=== PATIENT | male | born 1965 | race Caucasian/White ===

== ENCOUNTER 2019-04-10 09:49 | Observation (INO) | payer BC, SELFPAY ==
[2019-04-10] VITALS (15 sets, daily range): BP systolic 139–180; BP diastolic 92–127; PULSE 69–105; RESP 16–19; TEMP 36.3–37.1; O2SAT 92–98; BMI 25.0
--- NOTE | 2019-04-10 10:15 | EKG12_ITS ---
Test Reason : CP Blood Pressure : / mmHG Vent. Rate : 089 BPM Atrial Rate : 089 BPM P-R Int : 206 ms QRS Dur : 110 ms QT Int : 380 ms P-R-T Axes : 039 013 024 degrees QTc Int : 462 ms Normal sinus rhythm Incomplete left bundle branch block Borderline ECG Confirmed by LATRICIA DALY, MARCY ([id number]), film editor supervisor ART OBRIEN ([id number]) on 04/11/2019 8:13:58 AM Referred By: ASHLEY Confirmed By:MARCY ROME MD
--- NOTE | 2019-04-10 10:15 | RAD_ITS ---
STUDY: X-RAY CHEST REASON FOR EXAM: Male, 54 years old. Left-sided chest pain. TECHNIQUE: PA and lateral views of the chest. COMPARISON: Comparison is made with prior examination dated April 07, 2019. FINDINGS: EKG electrodes are seen. The lungs are clear and expanded. There is no demonstrated pleural abnormality. Normal size heart. Calcification of the left hilar lymph nodes. Normal visualized pulmonary arteries. There is atherosclerotic tortuosity of the aortic arch and descending thoracic aorta. Normal visualized thoracic spine. Normal visualized ribs, clavicles, and shoulders. There is no demonstrated abnormality of the visualized soft tissue structures of the upper abdomen. RAD/Chest PA and Lateral IMPRESSION: Normal x-ray examination of the chest. Electronically Signed: Jonathan Huertas, at 10:51 EDT , Service support ,
--- NOTE | 2019-04-10 10:16 | ED.VIS.GEN ---
History of Present Illness Chief Complaint: Chest Pain Informant: Patient Onset: Weeks Timing: Intermittent - Initially seconds today 10 to 15 minutes Quality: Pain Location: Left anterior chest Current Severity: - - Minimal Maximum Severity: Moderate Worsened by: Work Relieved by: Nothing Associated Symptoms: Mild shortness of breath Narrative: Patient is a 54-year-old male who reports he has no sniffing past medical history. He presents because of anterior left chest pain that is been intermittent for the past week. Today he had an episode last 10 to 15 minutes at work. He admits to drinking 6-8 beers daily. He denies history of pancreatitis. He denies black or maroon stool. He denies bruising easily even though he has numerous bruises. He denies history of PE or DVT. He denies leg pain, swelling discoloration. He does complain of vague myalgia upper and lower extremity. Prior similar symptoms: No Recent Illness/Hospitalization: No - Past Medical History (1) Alcoholic hepatitis Status: Acute Past Medical History - Allergies and Home Meds Allergies/Adverse Reactions: Allergies No Known Allergies Allergy (Unverified 04/10/19 09:49) Primary Care Physician: Dwaine Hendrix MD [Primary Care Provider] - Prior records reviewed: Yes Lives: Alone Smoking Status: Never smoker Alcohol: Heavy Drugs: None Review of Systems General: Denies: Chills, Fever, Sweats Eyes: Denies: Visual changes - bilaterally, Blurred Vision - bilaterally, Diplopia ENT: Denies: Rhinorrhea, Sore throat Cardiovascular: Reports: Chest pain Respiratory: Reports: Dyspnea. Denies: Cough, Sputum, Dyspnea on exertion, Orthopnea, Paroxysmal nocturnal dyspnea Gastrointestinal: Denies: Abdominal pain, Nausea, Vomiting, Diarrhea, Melena, Hematochezia Genitourinary: Denies: Dysuria, Hematuria, Frequency Musculoskeletal: Reports: Myalgias. Denies: Arthralgias, Neck pain, Back pain, Extremity Pain Skin: Denies: Rash, Wounds Neurological: Denies: Headache, Weakness, Numbness Hematologic: Denies: Easy bruising, Easy bleeding Allergy: Denies: Uticaria, Swelling of the mouth Physical Exam Vital Signs/Narrative: Vital Signs Temp Pulse Resp BP Pulse Ox 04/10/19 09:50 97.4 F L 105 H 17 164/115 H 96 Inital Vital Signs reviewed: Yes General: Well nourished, Well developed, No Acute Distress Head: Normocephalic, Atraumatic Eyes: Perrl, EOMI ENT: Moist mucous membranes, No rhinorrhea Neck: Supple, Nontender Cardiovascular: Regular rhythm, No murmurs, Normal S1, Normal S2, Tachycardia Respiratory: No distress, CTA bilaterally, Chest nontender Abdomen: Soft, Nontender, Nondistended, Normal bowel sounds, No masses Back: Nontender, Normal Inspection Extremities: Nontender, No edema Skin: Normal color, No rash, Trauma - Couple bruises upper extremity and chest. Negative for: Cyanosis, Diaphoresis, Jaundice Neurological: Alert, Oriented x3, Cranial nerves II-XII grossly intact, Normal Strength, Normal Sensation, Normal Gait Psychological: Normal affect, Normal Mood Diagnostic/Tx/Re-eval Chest X-Ray - ED: 2 View, Read by ED Physician, Normal, Heart, Lungs, Bony Structures, No Acute Disease, - - Illness disease noted left hilum which was not as obvious 3 days ago. Impressions Chest X-Ray 04/10/19 10:15 IMPRESSION: Normal x-ray examination of the chest. Electronically Signed: Jonathan Huertas, at 10:51 EDT , Service support , 04/10/19 10:15 Chest PA and Lateral [RAD] Stat Laboratory Results 04/10/19 04/10/19 10:15 10:15 WBC 2.7 L RBC 3.78 L Hgb 12.9 L Hct 37.8 L MCV 100.0 H MCH 34.1 H MCHC 34.1 RDW 13.7 RDW Differential 49.1 H Plt Count 35 L* MPV 10.5 Immature Gran % (Auto) 0.000 Neut % (Auto) 34.6 L Lymph % (Auto) 53.4 H [place] % (Auto) 7.1 Eos % (Auto) 4.5 Baso % (Auto) 0.4 Absolute Neuts (auto) 0.9 L Absolute Lymphs (auto) 1.43 Total Counted Not Reportable Differential Comment COMMENT Diff Path Review May foll Sodium 142 Potassium 3.4 L Chloride 106 Carbon Dioxide 26.0 Anion Gap 10 BUN 8 Creatinine 0.82 Estim Creat Clear Calc 108.81 Est GFR (MDRD) Af Amer 128 Est GFR (MDRD) Non-Af 105 BUN/Creatinine Ratio 9.8 L Glucose 122 H Calcium 8.6 Total Bilirubin 0.40 AST 207 H ALT 169 H Alkaline Phosphatase 53 Troponin I 0.105 H Total Protein 7.4 Albumin 3.8 Globulin 3.6 Albumin/Globulin Ratio 1.1 Lipase 235 - Rhythm Strip Rhythm Strip: Sinus Rhythm Rate: 103 - EKG Initial EKG Interpretation: Sinus Rhythm - Ventricular rate is 89. [place] interval is prolonged at 206 ms, first-degree AV block, QS duration is prolonged at 110 ms. QT interval is normal. No acute ischemic changes noted. - Medical Decision Making Patient presents with intermittent chest pain. This may represent pancreatitis, cardiac ischemia, noncardiac etiology and specifically GERD, esophagitis/gastritis secondary to drinking. Pulmonary etiologies need to be considered. Since patient is tachycardic we will obtain a d-dimer. Patient has pancytopenia most likely secondary to bone marrow suppression from chronic alcohol use. Patient does have an elevated troponin. In light of this hospitalist was paged for 20 observation to evaluate for cardiac etiology versus other causes. ED Disposition - Plan for ED Patient: Disposition: Acute Care Hospital [facility] Diagnosis: Left-sided chest pain, Pancytopenia, Alcoholism /alcohol abuse Referrals: Dwaine Hendrix MD [Primary Care Provider] -
--- NOTE | 2019-04-10 10:20 | ED.DCSUM_ITS ---
History of Present Illness Chief Complaint: Chest Pain Informant: Patient Onset: Weeks Timing: Intermittent - Initially seconds today 10 to 15 minutes Quality: Pain Location: Left anterior chest Current Severity: - - Minimal Maximum Severity: Moderate Worsened by: Work Relieved by: Nothing Associated Symptoms: Mild shortness of breath Narrative: Patient is a 54-year-old male who reports he has no sniffing past medical history. He presents because of anterior left chest pain that is been intermittent for the past week. Today he had an episode last 10 to 15 minutes at work. He admits to drinking 6-8 beers daily. He denies history of pancreatitis. He denies black or maroon stool. He denies bruising easily even though he has numerous bruises. He denies history of PE or DVT. He denies leg pain, swelling discoloration. He does complain of vague myalgia upper and lower extremity. Prior similar symptoms: No Recent Illness/Hospitalization: No - Past Medical History (1) Alcoholic hepatitis Status: Acute Past Medical History - Allergies and Home Meds Allergies/Adverse Reactions: Allergies No Known Allergies Allergy (Unverified 04/10/19 09:49) Primary Care Physician: Dwaine Hendrix MD [Primary Care Provider] - Prior records reviewed: Yes Lives: Alone Smoking Status: Never smoker Alcohol: Heavy Drugs: None Review of Systems General: Denies: Chills, Fever, Sweats Eyes: Denies: Visual changes - bilaterally, Blurred Vision - bilaterally, Di plopia ENT: Denies: Rhinorrhea, Sore throat Cardiovascular: Reports: Chest pain Respiratory: Reports: Dyspnea. Denies: Cough, Sputum, Dyspnea on exertion, Orthopnea, Paroxysmal nocturnal dyspnea Gastrointestinal: Denies: Abdominal pain, Nausea, Vomiting, Diarrhea, Melena, Hematochezia Genitourinary: Denies: Dysuria, Hematuria, Frequency Musculoskeletal: Reports: Myalgias. Denies: Arthralgias, Neck pain, Back pain, Extremity Pain Skin: Denies: Rash, Wounds Neurological: Denies: Headache, Weakness, Numbness Hematologic: Denies: Easy bruising, Easy bleeding Allergy: Denies: Uticaria, Swelling of the mouth Physical Exam Vital Signs/Narrative: Vital Signs Temp Pulse Resp BP Pulse Ox 04/10/19 09:50 97.4 F L 105 H 17 164/115 H 96 Inital Vital Signs reviewed: Yes General: Well nourished, Well developed, No Acute Distress Head: Normocephalic, Atraumatic Eyes: Perrl, EOMI ENT: Moist mucous membranes, No rhinorrhea Neck: Supple, Nontender Cardiovascular: Regular rhythm, No murmurs, Normal S1, Normal S2, Tachycardia Respiratory: No distress, CTA bilaterally, Chest nontender Abdomen: Soft, Nontender, Nondistended, Normal bowel sounds, No masses Back: Nontender, Normal Inspection Extremities: Nontender, No edema Skin: Normal color, No rash, Trauma - Couple bruises upper extremity and chest. Negative for: Cyanosis, Diaphoresis, Jaundice Neurological: Alert, Oriented x3, Cranial nerves II-XII grossly intact, Normal Strength, Normal Sensation, Normal Gait Psychological: Normal affect, Normal Mood Diagnostic/Tx/Re-eval Chest X-Ray - ED: 2 View, Read by ED Physician, Normal, Heart, Lungs, Bony Structures, No Acute Disease, - - Illness disease noted left hilum which was not as obvious 3 days ago. Impressions Chest X-Ray 04/10/19 10:15 IMPRESSION: Normal x-ray examination of the chest. Electronically Signed: Jonathan Huertas, at 10:51 EDT , Service support , 04/10/19 10:15 Chest PA and Lateral [RAD] Stat Laboratory Results 04/10/19 04/10/19 10:15 10:15 WBC 2.7 L RBC 3.78 L Hgb 12.9 L Hct 37.8 L MCV 100.0 H MCH 34.1 H MCHC 34.1 RDW 13.7 RDW Differential 49.1 H Plt Count 35 L* MPV 10.5 Immature Gran % (Auto) 0.000 Neut % (Auto) 34.6 L Lymph % (Auto) 53.4 H [place] % (Auto) 7.1 Eos % (Auto) 4.5 Baso % (Auto) 0.4 Absolute Neuts (auto) 0.9 L Absolute Lymphs (auto) 1.43 Total Counted Not Reportable Differential Comment COMMENT Diff Path Review May foll Sodium 142 Potassium 3.4 L Chloride 106 Carbon Dioxide 26.0 Anion Gap 10 BUN 8 Creatinine 0.82 Estim Creat Clear Calc 108.81 Est GFR (MDRD) Af Amer 128 Est GFR (MDRD) Non-Af 105 BUN/Creatinine Ratio 9.8 L Glucose 122 H Calcium 8.6 Total Bilirubin 0.40 AST 207 H ALT 169 H Alkaline Phosphatase 53 Troponin I 0.105 H Total Protein 7.4 Albumin 3.8 Globulin 3.6 Albumin/Globulin Ratio 1.1 Lipase 235 - Rhythm Strip Rhythm Strip: Sinus Rhythm Rate: 103 - EKG Initial EKG Interpretation: Sinus Rhythm - Ventricular rate is 89. [place] interval is prolonged at 206 ms, first-degree AV block, QS duration is prolonged at 110 ms. QT interval is normal. No acute ischemic changes noted. - Medical Decision Making Patient presents with intermittent chest pain. This may represent pancreatitis, cardiac ischemia, noncardiac etiology and specifically GERD, esophagitis/gastritis secondary to drinking. Pulmonary etiologies need to be considered. Since patient is tachycardic we will obtain a d-dimer. Patient has pancytopenia most likely secondary to bone marrow suppression from chronic alcohol use. Patient does have an elevated troponin. In light of this hospitalist was paged for 20 observation to evaluate for cardiac etiology versus other causes. ED Disposition - Plan for ED Patient: Disposition: Acute Care Hospital [facility] Diagnosis: Left-sided chest pain, Pancytopenia, Alcoholism /alcohol abuse Referrals: Dwaine Hendrix MD [Primary Care Provider] -
[2019-04-10 10:29] LABS: Absolute Lymphocyte Count 1.43 X10^3/ul (0.83-4.51); Absolute Neutrophil Count 0.9 X10^3/uL (2.0-7.7); Basophil# 0.01 X10^3/uL; Basophil% 0.4 % (0-1); Eosinophil# 0.12 X10^3/uL; Eosinophils% 4.5 % (0-5); Hematocrit 37.8 % (40-54); Hemoglobin 12.9 g/dl (13.0-16.5); Lymphocyte # 1.43 X10^3/ul (4.0); Lymphocyte % 53.4 % (19-41); Mean Corp Hgb Conc 34.1 g/gl (32-36); Mean Corpuscular Hgb 34.1 pg (27.0-32.0); Mean Platelet Vol. 10.5 fl (6.2-12.0); Monocyte# 0.19 X10^3/uL; Monocyte% 7.1 % (0-10); Neutrophil # 0.93 X10^3/uL (2.7-7.7); Neutrophil % 34.6 % (47-70); RBC Distribution Width CV 13.7 % (11.6-14.6); RBC Distribution Width SD 49.1 fl (35.1-43.9); Red Blood Count 3.78 M/mm3 (4.6-6.2); White Blood Count 2.7 K/mm3 (4.4-11.0)
[2019-04-10 10:35] LABS: Differential Indicated SCAN CRITERIA MET; POSITIVE COUNT YES; POSITIVE DIFFERENTIAL YES; POSITIVE MORPHOLOGY NO; Platelet Count 35 K/mm3 (150-450)
[2019-04-10 10:45] LABS: ALB/GLOB Ratio 1.1 RATIO (0.9-2.4); AST(SGOT) 207 U/L (15-37); Alanine Aminotransfer ALT/SGPT 169 U/L (16-61); Albumin, Serum 3.8 g/dL (3.2-5.0); Alkaline Phosphatase 53 U/L (45-117); Anion Gap 10 (5-15); BUN 8 mg/dL (7-18); BUN/Creat Ratio 9.8 RATIO (10-20); Calcium,Total 8.6 mg/dL (8.5-10.1); Chloride 106 mmol/L (98-107); Creatinine, Serum 0.82 mg/dL (0.70-1.30); EST Glomerular Filtration Rate 105 mL/min (>60); Est Glom Filt Rate - Afr Amer 128 mL/min (>60); Estimated Creatinine Clearance 108.81 ml/min; Globulin 3.6 g/dL (2.2-4.2); Glucose 122 mg/dL (74-106); Lipase 235 U/L (73-393); Potassium 3.4 mmol/L (3.5-5.1); Protein, Total 7.4 g/dL (6.4-8.2); Sodium Level 142 mmol/L (136-145)
--- NOTE | 2019-04-10 11:45 | NURSING ---
PCU OBS CP, ELEVATED TROP, PANCYTOPENIA KORAM
--- NOTE | 2019-04-10 11:56 | PCM.HP.STD ---
History of Present Illness Date of Admission: 04/10/19 Chief Complaint: chest pain The patient is a 54 year old M past medical history significant for alcohol abuse. He was admitted through the ED on 04/10/2019 with a complaint of chest pain which have been going on for about a week. Chest pain is worsened by exertion and relieved by rest. It is mainly left-sided and does not radiate. He denied any assisted lightheadedness or dizziness, palpitations, fever chills, diarrhea vomiting. He is never had any heart problems before. He does have a strong family history of heart disease with his grandfather and uncle both of heart attacks at a young age. In the ED, vitals were significant for elevated blood pressure of 180/127, labs were significant for potassium of 3.4 and troponin was 0.105. CBC showed pancytopenia with WBC of 2.7 and platelets of 35 as well as hemoglobin of 12.9. Chest x-ray showed no acute cardiopulmonary process and EKG showed no acute ST changes and showed sinus rhythm. He has been admitted to manage for chest pain to rule out ACS. [] Past Medical History Past Medical History (Chronic Problems): Chronic Problems Chewing tobacco use (Chronic) Allergies No Known Allergies Allergy (Unverified 04/10/19 09:49) Home Medications: Ambulatory Orders Medication Instructions Recorded NK 04/10/19 Surgical History: no surgical history Psychiatric History: No pertinent psych hx Lives: Alone Smoking Status: Light Smoker (<10/day) Tobacco Use: Cigarettes Alcohol: Heavy - ~ 12 pack of beer a day on most days Drugs: None - *Family History Paternal History Items: Heart Disease - grandfather and uncle of heart attacks at a young age. Maternal History Items: Cancer - mother had bladder cancer Review of Systems Constitutional: Denies: Chills, Fever, Malaise, Weakness, Weight Change Eyes: Denies: Blurred vision HEENT: Denies: Head Aches, Sinus Congestion, Sinus Drainage Cardiovascular: Reports: Chest Pain, Chest Pressure. Denies: Chest Tightness, Edema, Orthopnea, Palpitations, Paroxysmal Noc. Dyspnea, Syncope Respiratory: Denies: Cough, Shortness of breath at rest, Sputum production Gastrointestinal: Denies: Abdominal Pain, Nausea, Vomiting Genitourinary: Denies: Dysuria Musculoskeletal: Denies: Joint Pain, Joint Tenderness Skin: Denies: Rash, Wounds Neurological: Denies: Numbness, Tingling, Focal weakness Psychiatric: Denies: Anxiety, Depression, Homicidal Ideations, Suicidal Ideations Hematologic/ Lymphatic: Denies: Easy Bruising, Easy Bleeding VTE Information - Inpt Only VTE Present on Admission: No VTE Pharm Prophylaxis ordered?: Yes Patient Problems: Active and Suspected Problems Left-sided chest pain (Acute) Pancytopenia (Acute) Alcoholism /alcohol abuse (Acute) - Physical Exam General: Alert, Oriented x3, Cooperative, No apparent distress HEENT: Atraumatic, PERRLA, EOMI, Normocephalic Oral: Moist Mucosa Neck: Supple, No JVD, Negative Carotid Bruits Lungs: Clear to auscultation, Normal air movement, No rhonchi, No wheeze, No rales Cardiovascular: Regular rate, Regular Rhythm, Normal S1, Normal S2, No murmurs Abdomen: Bowel Sounds Present, Soft, Non Tender, Non-Distended, No Hepato-splenomegaly Extremities: No clubbing, No cyanosis, No edema, Capillary Refill Less than 3 Seconds Skin: - - ecchymotic patches over torso and upper arms (started ~ 1 week ago) Musculoskeletal: No Tenderness to Palpation of Joints or Extremities Lymphatic: No Cervical, Supraclavicular, or Inguinal Adenopathy Neurological: Cranial nerves II-XII grossly intact, Neuro grossly intact, Motor Exam 5/5 strength throughout Psych/Mental Status: Normal Affect, Appropriate, Alert and oriented to time, place, person, mood and affect Vital Signs Temp Pulse Resp BP Pulse Ox 97.4 F L 69 19 H 145/121 H 93 04/10/19 09:50 04/10/19 11:20 04/10/19 11:20 04/10/19 11:20 04/10/19 11:20 Oxygen Delivery Method Room Air Weight: 174 lb 6.17 oz Body Mass Index (BMI) 25.0 Laboratory Tests Past 24 Hrs 04/10/19 04/10/19 10:15 10:15 WBC 2.7 L RBC 3.78 L Hgb 12.9 L Hct 37.8 L MCV 100.0 H MCH 34.1 H MCHC 34.1 RDW 13.7 RDW Differential 49.1 H Plt Count 35 L* MPV 10.5 Immature Gran % (Auto) 0.000 Neut % (Auto) 34.6 L Lymph % (Auto) 53.4 H [place] % (Auto) 7.1 Eos % (Auto) 4.5 Baso % (Auto) 0.4 Absolute Neuts (auto) 0.9 L Absolute Lymphs (auto) 1.43 Total Counted Not Reportable Differential Comment COMMENT Diff Path Review May foll Sodium 142 Potassium 3.4 L Chloride 106 Carbon Dioxide 26.0 Anion Gap 10 BUN 8 Creatinine 0.82 Estim Creat Clear Calc 108.81 Est GFR (MDRD) Af Amer 128 Est GFR (MDRD) Non-Af 105 BUN/Creatinine Ratio 9.8 L Glucose 122 H Calcium 8.6 Total Bilirubin 0.40 AST 207 H ALT 169 H Alkaline Phosphatase 53 Troponin I 0.105 H Total Protein 7.4 Albumin 3.8 Globulin 3.6 Albumin/Globulin Ratio 1.1 Lipase 235 Diagnostic Data Chest X-Ray 04/10/19 10:15 IMPRESSION: Normal x-ray examination of the chest. Electronically Signed: Jonathan Kiya, at 10:51 EDT , Service support , Assessment/Plan All Active Problems Alcohol intoxication (Acute) Alcoholic hepatitis (Acute) Left-sided chest pain (Acute) Pancytopenia (Acute) Alcoholism /alcohol abuse (Acute) 54-year-old male admitted with a complaint of chest pain. 1. Chest pain to rule out ACS chest pain is very typical; left sided, pressure like, worsened by exertion, relieved by rest. initial troponin is 0.105; EKG showed no acute ST changes admit to PCU with telemetry cycle troponins; consult cardiology in light of patient's history of smoking, family history of heart disease and typical nature of chest pain, this was patient's in high probability for CAD will check lipid panel and A1C 2. Elevated BP, with no history of hypertension Patient has BP in the ED was initially 164/115 and went up to 1 8127. Has no known history of hypertension. Elevated blood pressure could also be due to withdrawal from alcohol. Will put on IV hydralazine PRN for now and trend blood pressure. If it remains elevated, will consider starting p.o. blood pressure meds. 3. Pancytopenia 35 with WBC of 2.7 and hemoglobin of 12.9. Is a macrocytic anemia and this is likely due to alcohol abuse. Has an ecchymotic rash over his torso and upper extremities which is likely due to thrombocytopenia. will monitor counseled to stop drinking 4. History of alcohol abuse: drinks ~ 12 pack of beer on most days. Says he has never gone into withdrawal from alcohol. will check alcohol level give thiamine and folic acid as well as multivitamin. put on alcohol withdrawal protocol DVT prophylaxis: SCDs. No anticoagulation o/a of thrombocytopenia Code Visit Inpatient E&M: 83341 Init Hosp L3
--- NOTE | 2019-04-10 12:00 | HP.PCM_ITS ---
History of Present Illness Date of Admission: 04/10/19 Chief Complaint: chest pain The patient is a 54 year old M past medical history significant for alcohol abuse. He was admitted through the ED on 04/10/2019 with a complaint of chest pain which have been going on for about a week. Chest pain is worsened by exertion and relieved by rest. It is mainly left-sided and does not radiate. He denied any assisted lightheadedness or dizziness, palpitations, fever chills, diarrhea vomiting. He is never had any heart problems before. He does have a strong family history of heart disease with his grandfather and uncle both of heart attacks at a young age. In the ED, vitals were significant for elevate d blood pressure of 180/127, labs were significant for potassium of 3.4 and troponin was 0.105. CBC showed pancytopenia with WBC of 2.7 and platelets of 35 as well as hemoglobin of 12.9. Chest x-ray showed no acute cardiopulmonary process and EKG showed no acute ST changes and showed sinus rhythm. He has been admitted to manage for chest pain to rule out ACS. [] Past Medical History Past Medical History (Chronic Problems): Chronic Problems Chewing tobacco use (Chronic) Allergies No Known Allergies Allergy (Unverified 04/10/19 09:49) Home Medications: Ambulatory Orders Medication Instructions Recorded NK 04/10/19 Surgical History: no surgical history Psychiatric History: No pertinent psych hx Lives: Alone Smoking Status: Light Smoker (<10/day) Tobacco Use: Cigarettes Alcohol: Heavy - ~ 12 pack of beer a day on most days Drugs: None - *Family History Paternal History Items: Heart Disease - grandfather and uncle of heart attacks at a young age. Maternal History Items: Cancer - mother had bladder cancer Review of Systems Constitutional: Denies: Chills, Fever, Malaise, Weakness, Weight Change Eyes: Denies: Blurred vision HEENT: Denies: Head Aches, Sinus Congestion, Sinus Drainage Cardiovascular: Reports: Chest Pain, Chest Pressure. Denies: Chest Tightness, Edema, Orthopnea, Palpitations, Paroxysmal Noc. Dyspnea, Syncope Respiratory: Denies: Cough, Shortness of breath at rest, Sputum production Gastrointestinal: Denies: Abdominal Pain, Nausea, Vomiting Genitourinary: Denies: Dysuria Musculoskeletal: Denies: Joint Pain, Joint Tenderness Skin: Denies: Rash, Wounds Neurological: Denies: Numbness, Tingling, Focal weakness Psychiatric: Denies: Anxiety, Depression, Homicidal Ideations, Suicidal Ideations Hematologic/ Lymphatic: Denies: Easy Bruising, Easy Bleeding VTE Information - Inpt Only VTE Present on Admission: No VTE Pharm Prophylaxis ordered?: Yes Patient Problems: Active and Suspected Problems Left-sided chest pain (Acute) Pancytopenia (Acute) Alcoholism /alcohol abuse (Acute) - Physical Exam General: Alert, Oriented x3, Cooperative, No apparent distress HEENT: Atraumatic, PERRLA, EOMI, Normocephalic Oral: Moist Mucosa Neck: Supple, No JVD, Negative Carotid Bruits Lungs: Clear to auscultation, Normal air movement, No rhonchi, No wheeze, No rales Cardiovascular: Regular rate, Regular Rhythm, Normal S1, Normal S2, No murmurs Abdomen: Bowel Sounds Present, Soft, Non Tender, Non-Distended, No Hepato- splenomegaly Extremities: No clubbing, No cyanosis, No edema, Capillary Refill Less than 3 Seconds Skin: - - ecchymotic patches over torso and upper arms (started ~ 1 week ago) Musculoskeletal: No Tenderness to Palpation of Joints or Extremities Lymphatic: No Cervical, Supraclavicular, or Inguinal Adenopathy Neurological: Cranial nerves II-XII grossly intact, Neuro grossly intact, Motor Exam 5/5 strength throughout Psych/Mental Status: Normal Affect, Appropriate, Alert and oriented to time, place, person, mood and affect Vital Signs Temp Pulse Resp BP Pulse Ox 97.4 F L 69 19 H 145/121 H 93 04/10/19 09:50 04/10/19 11:20 04/10/19 11:20 04/10/19 11:20 04/10/19 11:20 Oxygen Delivery Method Room Air Weight: 174 lb 6.17 oz Body Mass Index (BMI) 25.0 Laboratory Tests Past 24 Hrs 04/10/19 04/10/19 10:15 10:15 WBC 2.7 L RBC 3.78 L Hgb 12.9 L Hct 37.8 L MCV 100.0 H MCH 34.1 H MCHC 34.1 RDW 13.7 RDW Differential 49.1 H Plt Count 35 L* MPV 10.5 Immature Gran % (Auto) 0.000 Neut % (Auto) 34.6 L Lymph % (Auto) 53.4 H [place] % (Auto) 7.1 Eos % (Auto) 4.5 Baso % (Auto) 0.4 Absolute Neuts (auto) 0.9 L Absolute Lymphs (auto) 1.43 Total Counted Not Reportable Differential Comment COMMENT Diff Path Review May foll Sodium 142 Potassium 3.4 L Chloride 106 Carbon Dioxide 26.0 Anion Gap 10 BUN 8 Creatinine 0.82 Estim Creat Clear Calc 108.81 Est GFR (MDRD) Af Amer 128 Est GFR (MDRD) Non-Af 105 BUN/Creatinine Ratio 9.8 L Glucose 122 H Calcium 8.6 Total Bilirubin 0.40 AST 207 H ALT 169 H Alkaline Phosphatase 53 Troponin I 0.105 H Total Protein 7.4 Albumin 3.8 Globulin 3.6 Albumin/Globulin Ratio 1.1 Lipase 235 Diagnostic Data Chest X-Ray 04/10/19 10:15 IMPRESSION: Normal x-ray examination of the chest. Electronically Signed: Jonathan Kiya, at 10:51 EDT , Service support , Assessment/Plan All Active Problems Alcohol intoxication (Acute) Alcoholic hepatitis (Acute) Left-sided chest pain (Acute) Pancytopenia (Acute) Alcoholism /alcohol abuse (Acute) 54-year-old male admitted with a complaint of chest pain. 1. Chest pain to rule out ACS * chest pain is very typical; left sided, pressure like, worsened by exertion, relieved by rest. * initial troponin is 0.105; EKG showed no acute ST changes * admit to PCU with telemetry * cycle troponins; consult cardiology in light of patient's history of smoking, family history of heart disease and typical nature of chest pain, this was patient's in high probability for CAD * will check lipid panel and A1C * 2. Elevated BP, with no history of hypertension * Patient has BP in the ED was initially 164/115 and went up to 1 8127. * Has no known history of hypertension. Elevated blood pressure could also be due to withdrawal from alcohol. * Will put on IV hydralazine PRN for now and trend blood pressure. If it remains elevated, will consider starting p.o. blood pressure meds. * 3. Pancytopenia * 35 with WBC of 2.7 and hemoglobin of 12.9. Is a macrocytic anemia and this is likely due to alcohol abuse. * Has an ecchymotic rash over his torso and upper extremities which is likely due to thrombocytopenia. * will monitor * counseled to stop drinking * 4. History of alcohol abuse: * drinks ~ 12 pack of beer on most days. Says he has never gone into withdrawal from alcohol. * will check alcohol level * give thiamine and folic acid as well as multivitamin. * put on alcohol withdrawal protocol * DVT prophylaxis: SCDs. No anticoagulation o/a of thrombocytopenia Code Visit Inpatient E&M: 77236 Init Hosp L3
--- NOTE | 2019-04-10 12:26 | ECHOD_ITS ---
Reason For Study: CHEST PAIN Procedure This was a 2D Doppler, Color Flow transthoracic echocardiogram. Myocardial strain analysis was performed in this exam to aid in the assessment of cardiac function. Exam performed portable in patient room. Left Ventricle Normal LV size. The estimated ejection fraction is 40 %. Normal diastology for age. There is mild global hypokinesis of the left ventricle. Right Ventricle Normal RV size. Normal systolic function. Atria The left atrium is mildly enlarged. Normal right atrium. Mitral Valve Posterior leaflet mitral valve prolapse. Mild-Moderate (1-2+) eccentric mitral valve insufficiency. Tricuspid Valve Normal tricuspid valve. Mild tricuspid valve insufficiency. Pulmonary artery systolic pressure is 30 mmHg. Aortic Valve Normal aortic valve. Trisinus/trileaflet aortic valve. Pulmonic Valve Normal pulmonic valve. Great Vessels Normal aortic root. The pulmonary artery is normal size. Normal inferior vena cava. Pericardium/Pleural No pericardial effusion. MMode/2D Measurements & Calculations LVIDd: 4.7 cm IVSd: 1.1 cm Ao root diam: 3.7 cm LVIDs: 3.6 cm LVPWd: 1.1 cm RVDd: 3.8 cm FS: 21.7 % LAV(MOD-bp): 70.9 ml LA A4 area: 21.6 cm2 LA dimension(2D): 4.1 cm LAV(MOD-bp) Indexed: 36.0 ml/m2 LAV(MOD-sp2): 79.3 ml LAV(MOD-sp4): 63.8 ml RA A4 area: 15.5 cm2 Time Measurements MV dec time: 0.22 sec Doppler Measurements & Calculations MV E max kiko: 60.7 cm/sec Lat Peak E' Kiko: 6.6 cm/sec Med Peak E' Kiko: 7.0 cm/sec MV A max kiko: 36.7 cm/sec E/E' lat: 9.2 E/E' med: 8.7 MV E/A: 1.7 Ao V2 max: 76.1 cm/sec LV V1 max: 64.8 cm/sec PA V2 max: 72.0 cm/sec Ao max P.3 mmHg LV V1 max P.7 mmHg PI end-d kiko: 145.6 cm/sec TR max kiko: 256.0 cm/sec TR max P.2 mmHg Interpretation Summary Normal LV size. The estimated ejection fraction is 40 %. Normal diastology for age. Pulmonary artery systolic pressure is 30 mmHg. Posterior leaflet mitral valve prolapse. Mild-Moderate (1-2+) eccentric mitral valve insufficiency. Ordering Physician: Edwina Montoya Referring Physician: HAI GIBBONS Performed By: Rimma Sumner, TESSIE, RVT
--- NOTE | 2019-04-10 12:32 | EKG12_ITS ---
Test Reason : CP ADMISSION Blood Pressure : / mmHG Vent. Rate : 099 BPM Atrial Rate : 099 BPM P-R Int : 192 ms QRS Dur : 106 ms QT Int : 374 ms P-R-T Axes : 048 024 019 degrees QTc Int : 479 ms Normal sinus rhythm Incomplete left bundle branch block Borderline ECG Confirmed by FLORESITA DALY, ISABELLA ([id number]), primer expeditor and drier SAM CHAO ([id number]) on 04/12/2019 3:22:50 PM Referred By: YANI Confirmed By:ISABELLA CANAS MD
[2019-04-10 13:12] LABS: Cholesterol 191 mg/dL (200); High Density Lipoprotein 84 mg/dL; Triglycerides 79 mg/dL; Very Low Density Lipoprotein 16 mg/dL (5-40)
[2019-04-10 13:34] LABS: Hemoglobin A1c 5.4 % (4.2-6.3)
--- NOTE | 2019-04-10 13:49 | PCM.CONS.C ---
Reason for Consult Date of Consultation: 04/10/19 Reason for Consultation: Chest discomfort History of Present Illness: The patient is a 54 year old M who was admitted through the ED on 04/10/2019 with a complaint of chest pain which have been going on for about a week. Chest pain is worsened by exertion and relieved by rest. It is mainly left-sided and does not radiate. He denied any assisted lightheadedness or dizziness, palpitations, fever chills, diarrhea vomiting. He is never had any heart problems before. He does have a strong family history of heart disease with his grandfather and uncle both of heart attacks at a young age. He has not had any shortness of breath or paroxysmal nocturnal dyspnea or pedal edema. He does not take any medications. He was urged by a friend to come to the emergency room. In the ED, vitals were significant for elevated blood pressure of 180/127, his EKG did not demonstrate any significant abnormalities. He did have mildly abnormal troponin enzymes but due to his history cardiology was called for further evaluation and management. Past Medical History Allergies/Adverse Reactions: Allergies No Known Allergies Allergy (Unverified 04/10/19 09:49) Home Medications: Ambulatory Orders Medication Instructions Recorded NK 04/10/19 Past Medical History (Chronic Problems): Chronic Problems Chewing tobacco use (Chronic) Surgical History: no surgical history Psychiatric History: No pertinent psych hx - *Family History Paternal History Items: Heart Disease - grandfather and uncle of heart attacks at a young age. Maternal History Items: Cancer - mother had bladder cancer Lives: Alone Smoking Status: Light Smoker (<10/day) Tobacco Use: Cigarettes, Cigars Alcohol: Heavy - ~ 12 pack of beer a day on most days Drugs: Marijuana Review of Systems - Review of Systems General: Denies: Fever, Night Sweats, Fatigue HEENT: Denies: Vision Change Cardiovascular: Reports: Chest Discomfort, Chest Discomfort with Exertion, Chest Heaviness. Denies: Shortness of Breath, Orthopnea, PND, Peripheral Edema, Palpitations, Lightheadedness, Dizziness, Near Syncope, Syncope Respiratory: Denies: Cough, Sputum Production, Hemoptysis Gastrointestinal: Denies: Hematemesis, Hematochezia, Melena Genitourinary: Denies: Dysuria, Hematuria Muscoloskeletal: Denies: Myalgias Skin: Denies: Rash Neurological: Denies: Dizziness Psychiatric: Reports: Anxiety Endocrine: Denies: Unexplained Weight Loss Hematologic/ Lymphatic: Denies: Anemia Subjectve: Middle-aged man in no distress appears to be rather distant Objective: Vital Signs Temp Pulse Resp BP Pulse Ox 98.0 F 86 18 179/117 H 98 04/10/19 12:39 04/10/19 12:39 04/10/19 12:39 04/10/19 13:13 04/10/19 12:39 Oxygen Delivery Method Room Air Weight: 169 lb 3.2 oz Body Mass Index (BMI) 25.0 General: Awake, Alert, Oriented x 3 HEENT: PERRL, EOMI, Sclera Non Icteric Neck: Supple, Good ROM, No Lymph Node Enlargement Lungs: Clear to auscultation Cardiovascular: Regular Rhythm, Normal S1, Normal S2, No Murmurs, No Rubs, No Gallops Vascular: No Carotid Bruits, Normal Femoral Pulses, Normal Radial Pulses, Normal Dorsalis Pedal Pulse, Normal Posterior Tibial Pulses Abdomen: Bowel Sounds Present, Soft, Non Tender, No HSM, No Organomegaly Extremities: No Cyanosis, No Clubbing, No edema Musculoskeletal: No Erythema Skin: No Rashes Lymphatic: No Lymph Node Enlargement Neurological: No Focal Motor or Sensory Deficit, Decreased Motor Strength Psych/Mental Status: Appropriate 04/10/19 10:15: WBC 2.7 L, RBC 3.78 L, Hgb 12.9 L, Hct 37.8 L, MCV 100.0 H, MCH 34.1 H, MCHC 34.1, RDW 13.7, RDW Differential 49.1 H, Plt Count 35 L*, MPV 10.5, Immature Gran % (Auto) 0.000, Neut % (Auto) 34.6 L, Lymph % (Auto) 53.4 H, [place] % (Auto) 7.1, Eos % (Auto) 4.5, Baso % (Auto) 0.4, Absolute Neuts (auto) 0.9 L, Total Counted Not Reportable 04/10/19 10:15: Sodium 142, Potassium 3.4 L, Chloride 106, Carbon Dioxide 26.0, Anion Gap 10, BUN 8, Creatinine 0.82, Est GFR (MDRD) Af Amer 128, Est GFR (MDRD) Non-Af 105, BUN/Creatinine Ratio 9.8 L, Glucose 122 H, Calcium 8.6, Total Bilirubin 0.40, Troponin I 0.105 H 04/10/19 10:15: Triglycerides 79, Cholesterol 191, LDL Cholesterol 91, VLDL Cholesterol 16, HDL Cholesterol 84 04/10/19 10:15: Hemoglobin A1c 5.4 04/10/19 13:10: Troponin I 0.102 H Rhythm: EKG: Normal sinus rhythm with no acute changes ECHO: Pending Assessment/Plan 1. Chest pain He presents with recent onset chest discomfort suggestive of new onset angina. He certainly has markedly elevated blood pressure and this could be the cause of the symptomatology as well. However due to his family history as well and has his hesitancy to access the medical system it may be appropriate for us to directly proceed with a cardiac catheterization. He does have low platelets and I would recommend aspirin only with no clopidogrel at this time. Risk benefits and alternatives have been explained to him he understands and agrees to proceed. 2. Hypertension Does have significant hypertension. Would recommend starting beta-lexi with Lopressor 50 mg twice a day especially due to his alcohol history Amlodipine 10 mg a day Will consider AUSTEN inhibitor depending on the response to the above therapy. 3. Factor modification Alcohol, recreational drug and tobacco use counseling has been given to him. His lipid profile appears to be excellent at this particular time. Thank you for allowing me to participate in the care of your patient. Please don't hesitate to call if any issues arise
--- NOTE | 2019-04-10 13:55 | CON.PCM_ITS ---
Reason for Consult Date of Consultation: 04/10/19 Reason for Consultation: Chest discomfort History of Present Illness: The patient is a 54 year old M who was admitted through the ED on 04/10/2019 with a complaint of chest pain which have been going on for about a week. Chest pain is worsened by exertion and relieved by rest. It is mainly left-sided and does not radiate. He denied any assisted lightheadedness or dizziness, palpitations, fever chills, diarrhea vomiting. He is never had any heart problems before. He does have a strong family history of heart disease with his grandfather and uncle both of heart attacks at a young age. He has not had any shortness of breath or paroxysmal nocturnal dyspnea or pedal edema. He does not take any medications. He was urged by a friend to come to the emergency room. In the ED, vitals were significant for elevated blood pressure of 180/127, his EKG did not demonstrate any significant abnormalities. He did have mildly abnormal troponin enzymes but due to his history cardiology was called for further evaluation and management. Past Medical History Allergies/Adverse Reactions: Allergies No Known Allergies Allergy (Unverified 04/10/19 09:49) Home Medications: Ambulatory Orders Medication Instructions Recorded NK 04/10/19 Past Medical History (Chronic Problems): Chronic Problems Chewing tobacco use (Chronic) Surgical History: no surgical history Psychiatric History: No pertinent psych hx - *Family History Paternal History Items: Heart Disease - grandfather and uncle of heart attacks at a young age. Maternal History Items: Cancer - mother had bladder cancer Lives: Alone Smoking Status: Light Smoker (<10/day) Tobacco Use: Cigarettes, Cigars Alcohol: Heavy - ~ 12 pack of beer a day on most days Drugs: Marijuana Review of Systems - Review of Systems General: Denies: Fever, Night Sweats, Fatigue HEENT: Denies: Vision Change Cardiovascular: Reports: Chest Discomfort, Chest Discomfort with Exertion, Chest Heaviness. Denies: Shortness of Breath, Orthopnea, PND, Peripheral Edema, Palpitations, Lightheadedness, Dizziness, Near Syncope, Syncope Respiratory: Denies: Cough, Sputum Production, Hemoptysis Gastrointestinal: Denies: Hematemesis, Hematochezia, Melena Genitourinary: Denies: Dysuria, Hematuria Muscoloskeletal: Denies: Myalgias Skin: Denies: Rash Neurological: Denies: Dizziness Psychiatric: Reports: Anxiety Endocrine: Denies: Unexplained Weight Loss Hematologic/ Lymphatic: Denies: Anemia Subjectve: Middle-aged man in no distress appears to be rather distant Objective: Vital Signs Temp Pulse Resp BP Pulse Ox 98.0 F 86 18 179/117 H 98 04/10/19 12:39 04/10/19 12:39 04/10/19 12:39 04/10/19 13:13 04/10/19 12:39 Oxygen Delivery Method Room Air Weight: 169 lb 3.2 oz Body Mass Index (BMI) 25.0 General: Awake, Alert, Oriented x 3 HEENT: PERRL, EOMI, Sclera Non Icteric Neck: Supple, Good ROM, No Lymph Node Enlargement Lungs: Clear to auscultation Cardiovascular: Regular Rhythm, Normal S1, Normal S2, No Murmurs, No Rubs, No Gallops Vascular: No Carotid Bruits, Normal Femoral Pulses, Normal Radial Pulses, Normal Dorsalis Pedal Pulse, Normal Posterior Tibial Pulses Abdomen: Bowel Sounds Present, Soft, Non Tender, No HSM, No Organomegaly Extremities: No Cyanosis, No Clubbing, No edema Musculoskeletal: No Erythema Skin: No Rashes Lymphatic: No Lymph Node Enlargement Neurological: No Focal Motor or Sensory Deficit, Decreased Motor Strength Psych/Mental Status: Appropriate 04/10/19 10:15: WBC 2.7 L, RBC 3.78 L, Hgb 12.9 L, Hct 37.8 L, MCV 100.0 H, MCH 34.1 H, MCHC 34.1, RDW 13.7, RDW Differential 49.1 H, Plt Count 35 L*, MPV 10.5, Immature Gran % (Auto) 0.000, Neut % (Auto) 34.6 L, Lymph % (Auto) 53.4 H, [place] % (Auto) 7.1, Eos % (Auto) 4.5, Baso % (Auto) 0.4, Absolute Neuts (auto) 0.9 L, Total Counted Not Reportable 04/10/19 10:15: Sodium 142, Potassium 3.4 L, Chloride 106, Carbon Dioxide 26.0, Anion Gap 10, BUN 8, Creatinine 0.82, Est GFR (MDRD) Af Amer 128, Est GFR (MDRD) Non-Af 105, BUN/Creatinine Ratio 9.8 L, Glucose 122 H, Calcium 8.6, Total Bilirubin 0.40, Troponin I 0.105 H 04/10/19 10:15: Triglycerides 79, Cholesterol 191, LDL Cholesterol 91, VLDL Cholesterol 16, HDL Cholesterol 84 04/10/19 10:15: Hemoglobin A1c 5.4 04/10/19 13:10: Troponin I 0.102 H Rhythm: EKG: Normal sinus rhythm with no acute changes ECHO: Pending Assessment/Plan 1. Chest pain * He presents with recent onset chest discomfort suggestive of new onset angina. He certainly has markedly elevated blood pressure and this could be the cause of the symptomatology as well. However due to his family history as well and has his hesitancy to access the medical system it may be appropriate for us to directly proceed with a cardiac catheterization. He does have low platelets and I would recommend aspirin only with no clopidogrel at this time. Risk benefits and alternatives have been explained to him he understands and agrees to proceed. * 2. Hypertension * Does have significant hypertension. * Would recommend starting beta-lexi with Lopressor 50 mg twice a day especially due to his alcohol history * Amlodipine 10 mg a day * Will consider AUSTEN inhibitor depending on the response to the above therapy. * 3. Factor modification * Alcohol, recreational drug and tobacco use counseling has been given to him. * His lipid profile appears to be excellent at this particular time. * * Thank you for allowing me to participate in the care of your patient. Please don't hesitate to call if any issues arise
[2019-04-10] MEDS: amLODIPine 10 MG Tablet PO (14:10)
[2019-04-10] MEDS: Metoprolol Tartrate 50 MG Tablet PO ×2 (14:10→22:01)
[2019-04-10] MEDS: Aspirin 81 MG TAB.CHEW PO (14:10)
--- NOTE | 2019-04-10 14:39 | CASEMGMT ---
According to the [place] website, the following are in-network tertiary facilities: [facility], [facility], [facility], [facility], [facility], [facility], [facility], [facility], [facility], and . Tori POSADA CM
[2019-04-10] MEDS: LORazepam 1 MG Tablet PO ×3 (15:11→22:01)
[2019-04-10] MEDS: Folic Acid 1 MG Tablet 2 MG PO (15:11)
[2019-04-10] MEDS: Thiamine Hydrochloride 100 MG Tablet PO (15:12)
--- NOTE | 2019-04-10 21:25 | NURSING ---
Offered Ipad for heart cath education, pt declined offer. Verbal instructions given.
[2019-04-10 21:49] LABS: Amphetamine Urine VISTA NEGATIVE (<1000 ng/mL); Barbiturate Urine VISTA NEGATIVE (< 200 ng/mL); Benzodiazepine Urine VISTA NEGATIVE (< 200 ng/mL); Cocaine Urine VISTA NEGATIVE (< 300 ng/mL); Ecstacy Urine VISTA NEGATIVE (< 500 ng/mL); Methadone Urine VISTA NEGATIVE (< 300 ng/mL); PCP Urine VISTA NEGATIVE (< 25 ng/mL); THC Urine VISTA POSITIVE (< 50 ng/mL); Vista UDS pH Range 6
[2019-04-10] MEDS: Atorvastatin Calcium 40 MG Tablet PO (22:01)
[2019-04-10 22:53] LABS: Bacteria 0 SEEN /hpf (None Seen); Mucous, Urine 0 SEEN /hpf (<or=2+); Red Blood Cells-Urine 0 SEEN /hpf (0-5); White Blood Cells 0 SEEN /hpf (0-5)
[2019-04-10 23:02] LABS: Color, Urine Yellow (Yellow); Glucose, Dipstick Normal (Normal); Ketone-Dipstick 5 mg/dl (Negative); Leukocyte Esterase-Dipstick Negative /ul (Negative); Nitrite-Dipstick Negative (Negative); Occult Blood-Urine Negative /ul (Negative); Protein-Dipstick 30 mg/dl (Negative); Urine Bilirubin Dipstick Negative (Negative); Urine Clarity Clear (Clear); Urine Urobilinogen 1 mg/dl (Normal)
[2019-04-10 23:09] LABS: Squamous Epithelial Cells - UA 0-5 SEEN /hpf (0-5)
[2019-04-11] VITALS (19 sets, daily range): BP systolic 125–167; BP diastolic 86–115; PULSE 69–95; RESP 14–18; TEMP 36.4–37; O2SAT 95–99
[2019-04-11] MEDS: LORazepam 1 MG Tablet PO ×3 (02:05→10:47)
[2019-04-11] MEDS: hydrALAZINE 20 MG/ML Vial 10 MG IV ×2 (02:08→07:43)
[2019-04-11] MEDS: Metoprolol Tartrate 50 MG Tablet PO (05:59)
[2019-04-11 06:02] LABS: Partial Thromboplast Time 27.1 Seconds (24.1-36.2)
[2019-04-11 06:04] LABS: Absolute Lymphocyte Count 0.74 X10^3/ul (0.83-4.51); Basophil# 0.01 X10^3/uL; Basophil% 0.3 % (0-1); Eosinophil# 0.04 X10^3/uL; Eosinophils% 1.3 % (0-5); Hematocrit 41.5 % (40-54); Hemoglobin 14.6 g/dl (13.0-16.5); Lymphocyte # 0.74 X10^3/ul (4.0); Lymphocyte % 23.7 % (19-41); Mean Corp Hgb Conc 35.2 g/gl (32-36); Mean Corpuscular Hgb 34.5 pg (27.0-32.0); Mean Corpuscular Volume 98.1 fL (80-94); Mean Platelet Vol. 9.4 fl (6.2-12.0); Monocyte# 0.28 X10^3/uL; Neutrophil # 2.04 X10^3/uL (2.7-7.7); Neutrophil % 65.4 % (47-70); RBC Distribution Width CV 13.1 % (11.6-14.6); RBC Distribution Width SD 45.4 fl (35.1-43.9); Red Blood Count 4.23 M/mm3 (4.6-6.2); White Blood Count 3.1 K/mm3 (4.4-11.0)
[2019-04-11 06:07] LABS: AST(SGOT) 164 U/L (15-37); Alanine Aminotransfer ALT/SGPT 163 U/L (16-61); Albumin, Serum 3.8 g/dL (3.2-5.0); Alkaline Phosphatase 58 U/L (45-117); Anion Gap 11 (5-15); BUN 9 mg/dL (7-18); BUN/Creat Ratio 12.3 RATIO (10-20); Bilirubin, Direct 0.28 mg/dL (0.00-0.30); Calcium,Total 9.4 mg/dL (8.5-10.1); Chloride 103 mmol/L (98-107); Creatinine, Serum 0.73 mg/dL (0.70-1.30); EST Glomerular Filtration Rate 120 mL/min (>60); Est Glom Filt Rate - Afr Amer 145 mL/min (>60); Estimated Creatinine Clearance 118.37 ml/min; Globulin 4.1 g/dL (2.2-4.2); Glucose 93 mg/dL (74-106); Potassium 3.6 mmol/L (3.5-5.1); Protein, Total 7.9 g/dL (6.4-8.2); Sodium Level 140 mmol/L (136-145)
[2019-04-11 06:12] LABS: Differential Indicated SCAN CRITERIA MET; POSITIVE COUNT YES; POSITIVE DIFFERENTIAL NO; POSITIVE MORPHOLOGY NO; Platelet Count 42 K/mm3 (150-450)
[2019-04-11 06:28] LABS: Differential Comment SCANNED; Platelet Estimate MKD DEC (ADEQ)
[2019-04-11] MEDS: 0.9% Normal Saline 1,000 ML 15 ML IV (07:49)
--- NOTE | 2019-04-11 07:54 | NURSING ---
Report called to [facility] in dentures lab technician.
--- NOTE | 2019-04-11 08:37 | PN.CARD_ITS ---
Subjectve: Patient seen and evaluated. Objective: Vital Signs Temp Pulse Resp BP Pulse Ox 97.5 F L 80 18 166/115 H 96 04/11/19 05:55 04/11/19 07:43 04/11/19 05:55 04/11/19 07:43 04/11/19 05:55 Oxygen Delivery Method Room Air Weight: 169 lb 3.2 oz Body Mass Index (BMI) 25.0 Intake and Output for Last 24 Hours 04/09/19 04/10/19 04/11/19 23:59 23:59 23:59 Intake Total 120 / 120 60 / 60 Balance 120 / 120 60 / 60 General: Awake, Alert, Oriented x 3 HEENT: PERRL, EOMI, Sclera Non Icteric Neck: Supple, Good ROM, No Lymph Node Enlargement Lungs: Clear to auscultation Cardiovascular: Regular Rhythm, Normal S1, Normal S2, No Murmurs, No Rubs, No Gallops Vascular: No Carotid Bruits, Normal Femoral Pulses, Normal Radial Pulses, Normal Dorsalis Pedal Pulse, Normal Posterior Tibial Pulses Abdomen: Bowel Sounds Present, Soft, Non Tender, No HSM, No Organomegaly Extremities: No Cyanosis, No Clubbing, No edema Musculoskeletal: No Erythema Skin: No Rashes Lymphatic: No Lymph Node Enlargement Neurological: No Focal Motor or Sensory Deficit Psych/Mental Status: Appropriate 04/10/19 10:15: WBC 2.7 L, RBC 3.78 L, Hgb 12.9 L, Hct 37.8 L, MCV 100.0 H, MCH 34.1 H, MCHC 34.1, RDW 13.7, RDW Differential 49.1 H, Plt Count 35 L*, MPV 10.5, Immature Gran % (Auto) 0.000, Neut % (Auto) 34.6 L, Lymph % (Auto) 53.4 H, [place] % (Auto) 7.1, Eos % (Auto) 4.5, Baso % (Auto) 0.4, Absolute Neuts (auto) 0.9 L, Total Counted Not Reportable 04/10/19 10:15: Sodium 142, Potassium 3.4 L, Chloride 106, Carbon Dioxide 26.0, Anion Gap 10, BUN 8, Creatinine 0.82, Est GFR (MDRD) Af Amer 128, Est GFR (MDRD) Non-Af 105, BUN/Creatinine Ratio 9.8 L, Glucose 122 H, Calcium 8.6, Total Bilirubin 0.40, Troponin I 0.105 H 04/10/19 10:15: Triglycerides 79, Cholesterol 191, LDL Cholesterol 91, VLDL Cholesterol 16, HDL Cholesterol 84 04/10/19 10:15: Hemoglobin A1c 5.4 04/10/19 10:15: Magnesium 2.0 04/10/19 13:10: Troponin I 0.102 H 04/10/19 16:15: Troponin I 0.099 H 04/10/19 21:10: Urine Color Yellow, Urine Clarity Clear, Urine pH 7.0, Ur Specific [place] 1.010, Urine Protein 30 H, Urine Glucose (UA) Normal, Urine Ketones 5 H, Urine Occult Blood Negative, Urine Nitrite Negative, Urine Bilirubin Negative, Urine Urobilinogen 1 H, Ur Leukocyte Esterase Negative, Urin e RBC 0 SEEN, Urine WBC 0 SEEN 04/11/19 05:20: Sodium 140, Potassium 3.6, Chloride 103, Carbon Dioxide 26.0, Anion Gap 11, BUN 9, Creatinine 0.73, Est GFR (MDRD) Af Amer 145, Est GFR (MDRD) Non-Af 120, BUN/Creatinine Ratio 12.3, Glucose 93, Calcium 9.4, Total Bilirubin 1.10 H, Direct Bilirubin 0.28 04/11/19 05:20: WBC 3.1 L, RBC 4.23 L, Hgb 14.6, Hct 41.5, MCV 98.1 H, MCH 34.5 H, MCHC 35.2, RDW 13.1, RDW Differential 45.4 H, Plt Count 42 L*, MPV 9.4, Immature Gran % (Auto) 0.300, Neut % (Auto) 65.4, Lymph % (Auto) 23.7, [place] % (Auto) 9.0, Eos % (Auto) 1.3, Baso % (Auto) 0.3, Absolute Neuts (auto) 2.0, Total Counted Not Reportable 04/11/19 05:20: APTT 27.1 Rhythm: EKG: ECHO: Stress Test: Cardiac Cath: PCI: CT Surgery: Holter monitor: EPS: PPM: CXR: Chest CT Scan: Medical Necessity - Tobacco Use Smoking Status: Light Smoker (<10/day) Tobacco Use: Cigarettes Assessment/Plan 1. Chest pain * He presents with recent onset chest discomfort suggestive of new onset angina. He certainly has markedly elevated blood pressure and this could be the cause of the symptomatology as well. * His cardiac catheterization today demonstrated essentially normal coronary arteries. His left ventricular ejection fraction was mildly depressed. 2. Hypertension * Does have significant hypertension. * Would recommend starting beta-lexi with Lopressor 50 mg twice a day especially due to his alcohol history * Lisinopril 40 mg daily * Will consider amlodipine depending on the response to the above therapy. * 3. Factor modification * Alcohol, recreational drug and tobacco use counseling has been given to him. * His lipid profile appears to be excellent at this particular time. * * * Patient can be discharged for outpatient follow-up today. * Thank you for allowing me to participate in the care of your patient. Please don't hesitate to call if any issues arise
--- NOTE | 2019-04-11 08:42 | CL.D_ITS ---
Patient Name: HAI MCFADDEN Study Date: 04/11/2019 Performing: Andrew Moreno MD Ht: 68.89 inches 175 cm : 1965 Wt: 169.76 lbs 77 kg Age: 54 Gender: male BSA: 1.92 PROCEDURE(S) PERFORMED [id number] CLINICAL PROFILE AND INDICATIONS Indications: Suspected CAD Heart Failure: None Stress/Imaging Stress/Image Study Performed: No CAD Presentations: Unstable angina. CONCLUSIONS Non obstructive coronary arteries Cardiomyopathy: Non-ischemic RECOMMENDATIONS Medical therapy DESCRIPTION OF PROCEDURE The patient arrived to the procedure lab. The risks and benefits of the procedure as well as a full d escription of our services here and current unavailability of surgical backup were fully explained to the patient and/or their significant other prior to the catheterization. The Timeout was completed, verifying the correct patient and procedure. The patient's procedural site was prepped and draped in the usual fashion. Local anesthetic was given subcutaneously to right radial region with Lidocaine 2% . Using a modified Seldinger technique, arterial access was obtained via the right radial artery, a 6 Fr sheath was inserted. Leftt Coronary Artery selective angiography was performed in multiple views using a 5 Fr. 4.0 Preston catheter. Right Coronary Artery selective angiography was then performed in m ultiple views using a 5 Fr. 4.0 Preston catheter. Left Ventriculography was performed in LOPEZ projection using a 5 Fr. Pigtail catheter. LV to AO pullback pressures were then recorded.The arterial sheath was pulled and a TR Band was applied for hemostasis CORONARY ANGIOGRAPHY DOMINANCE: Right Dominant LEFT HEART ASSESSMENT Left Ventricular Ejection Fraction: by LV Gram 40 % Global Hypokinesis - Mild LEFT MAIN: Angiographically normal LEFT ANTERIOR DESCENDING ARTERY: Angiographically normal CIRCUMFLEX ARTERY: Angiographically normal RIGHT CORONARY ARTERY: Angiographically normal COMPLICATIONS No Complications PROCEDURE MEDICATIONS Versed 2 mg IV Oxygen: 2 L/min via nasal cannula Heparin diluted in 23cc Heparinized saline. Patient given 10cc IA of this solution. 04/11/2019 08:17: 26 Verapamil 2.5mg, Ntg 100mcgs, 2000 units of Heparin diluted in 23cc Heparinized saline. Patient give n 10cc IA of this solution. 04/11/2019 08:17:26 SUMMARY OF HEMODYNAMIC DATA Time AIR REST ECG 07:58:43 AO 103/78 (90) SA 08:19:13 LV 113/-1, 2 08:29:35 LV 109/0, 24 08:29:41 LV 111/1, 7 08:30:20 LV 109/3, 9 08:30:26 LVp 113/4, 12 08:30:30 AOp 105/-34 (11) 08:30:35 Signed By Andrew Moreno MD On 04/11/2019 08:41:49 Andrew Moreno MD
[2019-04-11 09:13] LABS: Pathologist Review Reviewed
[2019-04-11] MEDS: Folic Acid 1 MG Tablet 2 MG PO (10:45)
[2019-04-11] MEDS: Thiamine Hydrochloride 100 MG Tablet PO (10:46)
[2019-04-11] MEDS: Multivitamins,Therapeutic Tablet 1 TABLET PO (10:46)
[2019-04-11] MEDS: Lisinopril 40 MG Tablet PO (10:47)
--- NOTE | 2019-04-11 11:01 | DCINST_ITS ---
- Discharge Diagnoses Current Active Problems: Current Active and Chronic Problems Left-sided chest pain (Acute) Pancytopenia (Acute) Alcoholism /alcohol abuse (Acute) You will use the following diet at home:: Cardiac Your food should be the consistency of: Regular Your liquids should be the consistency of: Regular/Thin Weight Bearing Status: Weight bearing as tolerated Call your doctor if you observe: Fever of 101 or Higher Instructions: What Is Angina? Allergies/Adverse Reactions: Allergies No Known Allergies Allergy (Unverified 04/10/19 09:49) Medications to take at Discharge Lisinopril [Zestril] 40 mg PO DAILY #30 tablet 04/11/19 Metoprolol Tartrate [Lopressor (beta lexi)] 50 mg PO BID #60 tablet 04/11/19 The following prescriptions were given: Lisinopril [Zestril] 40 mg PO DAILY #30 tablet Metoprolol Tartrate [Lopressor (beta lexi)] 50 mg PO BID #60 tablet Primary Care Physician: Dwaine Hendrix MD [Primary Care Provider] - Please follow up with your Primary Care Physician in: one week Test Results: Test results from this visit will be discussed in further detail at your follow- up appointment, if applicable. Please Follow Up With: Andrew Moreno MD When: one week Proposed Discharge Date: 04/11/19
--- NOTE | 2019-04-11 11:02 | PCM.DC.SUM ---
Discharge Date and Diagnosis - Problem List Patient Problems: Active and Suspected Problems Left-sided chest pain (Acute) Pancytopenia (Acute) Alcoholism /alcohol abuse (Acute) Date of Admission: 04/10/19 Date of Discharge: 04/11/19 - Primary Discharge Diagnosis Active and Suspected Problems Left-sided chest pain (Acute) Pancytopenia (Acute) Alcoholism /alcohol abuse (Acute) - Secondary Discharge Diagnosis Chronic Problems Chewing tobacco use (Chronic) Hospital Course and Treatment Imaging Results: Diagnostic Data Chest X-Ray 04/10/19 10:15 IMPRESSION: Normal x-ray examination of the chest. Electronically Signed: Jonathan Huertas, at 10:51 EDT , Service support , cardiology- Dr Moreno Operations: None Procedures: Cardiac catheterization Summary of Care Provided: The patient is a 54 year old M past medical history significant for alcohol abuse. He was admitted through the ED on 04/10/2019 with a complaint of chest pain which have been going on for about a week. Chest pain is worsened by exertion and relieved by rest. It is mainly left-sided and does not radiate. He denied any assisted lightheadedness or dizziness, palpitations, fever chills, diarrhea vomiting. He is never had any heart problems before. He does have a strong family history of heart disease with his grandfather and uncle both of heart attacks at a young age. In the ED, vitals were significant for elevated blood pressure of 180/127, labs were significant for potassium of 3.4 and troponin was 0.105. CBC showed pancytopenia with WBC of 2.7 and platelets of 35 as well as hemoglobin of 12.9. Chest x-ray showed no acute cardiopulmonary process and EKG showed no acute ST changes. He was admitted to manage for chest pain to rule out ACS. Cardiology was consulted on account of patient's high probability for coronary artery disease. He was also managed for pancytopenia which was due to his chronic alcohol abuse. 2D echo done showed EF of 40% with mild global hypokinesis of the left ventricle. He had cardiac cath on 04/11/2019 which showed clean coronaries and mild global hypokinesia with EF of 40%. Patient remained stable and was discharged home on 04/11/2019. He was started on p.o. lisinopril 40 mg daily and metoprolol 50 mg twice daily. Of note, patient's blood pressure was also elevated during admission. He has no known diagnosis of hypertension but was started on lisinopril and metoprolol on account of mildly reduced EF and alcohol abuse. This would also help control his blood pressure. He is to follow-up with his primary care doctor and cardiology within 1 week. Patient seen and examined prior to discharge. He has no complaints. Review otherwise negative. Labs and vitals reviewed. Home medications reviewed and reconciled. o/e: Vital Signs Height 5 ft 9 in Weight: 169 lb 3.2 oz Weight in Pounds 169.2 lbs Pulse Ox 97 Temperature 98.2 F Pulse Rate 95 Respiratory Rate 16 Blood Pressure [BP] 179/117 Blood Pressure 125/86 Blood Pressure Position [BP] Semi-Fowlers Blood Pressure Position Semi-Fowlers General: Alert, Oriented x3, Cooperative, No apparent distress HEENT: Atraumatic, PERRLA, EOMI, Normocephalic Oral: Moist Mucosa Neck: Supple, No JVD, Negative Carotid Bruits Lungs: Clear to auscultation, Normal air movement, No rhonchi, No wheeze, No rales Cardiovascular: Regular rate, Regular Rhythm, Normal S1, Normal S2, No murmurs Abdomen: Bowel Sounds Present, Soft, Non Tender, Non-Distended, No Hepato-splenomegaly Extremities: No clubbing, No cyanosis, No edema, Capillary Refill Less than 3 Seconds Skin: - - ecchymotic patches over torso and upper arms Musculoskeletal: No Tenderness to Palpation of Joints or Extremities Lymphatic: No Cervical, Supraclavicular, or Inguinal Adenopathy Neurological: Cranial nerves II-XII grossly intact, Neuro grossly intact, Motor Exam 5/5 strength throughout Psych/Mental Status: Normal Affect, Appropriate, Alert and oriented to time, place, person, mood and affect Plan as above. Patient counselled strongly about quitting drinking alcohol. Patient Problems: Active and Suspected Problems Left-sided chest pain (Acute) Pancytopenia (Acute) Alcoholism /alcohol abuse (Acute) - Physical Exam Vital Signs Temp Pulse Resp BP Pulse Ox 98.6 F 86 16 150/105 H 98 04/11/19 10:40 04/11/19 10:40 04/11/19 10:40 04/11/19 10:40 04/11/19 10:40 Oxygen Delivery Method Room Air Weight: 169 lb 3.2 oz Body Mass Index (BMI) 25.0 Intake and Output for Last 24 Hours 04/09/19 04/10/19 04/11/19 23:59 23:59 23:59 Intake Total 120 / 120 60 / 60 Balance 120 / 120 60 / 60 Laboratory Tests Past 24 Hrs 04/10/19 04/10/19 04/10/19 10:15 10:15 10:15 WBC RBC Hgb Hct MCV MCH MCHC RDW RDW Differential Plt Count MPV Immature Gran % (Auto) Neut % (Auto) Lymph % (Auto) [place] % (Auto) Eos % (Auto) Baso % (Auto) Absolute Neuts (auto) Absolute Lymphs (auto) Total Counted Differential Comment Diff Path Review Reviewed Platelet Estimate APTT Sodium Potassium Chloride Carbon Dioxide Anion Gap BUN Creatinine Estim Creat Clear Calc Est GFR (MDRD) Af Amer Est GFR (MDRD) Non-Af BUN/Creatinine Ratio Glucose Hemoglobin A1c Calcium Magnesium Total Bilirubin Direct Bilirubin AST ALT Alkaline Phosphatase Troponin I Total Protein Albumin Globulin Triglycerides 79 Cholesterol 191 LDL Cholesterol 91 VLDL Cholesterol 16 HDL Cholesterol 84 Urine Color Urine Clarity Urine pH Ur Specific [place] Urine Protein Urine Glucose (UA) Urine Ketones Urine Occult Blood Urine Nitrite Urine Bilirubin Urine Urobilinogen Ur Leukocyte Esterase Urine RBC Urine WBC Ur Squamous Epith Cells Urine Bacteria Urine Mucus Urine Opiates Screen Urine Methadone Screen Ur Barbiturates Screen Ur Phencyclidine Scrn Ur Amphetamines Screen U Methamphetamin-MDMA U Benzodiazepines Scrn Urine Cocaine Screen U Cannabinoids Screen Ur Drug Screen Comment Ethyl Alcohol 380.0 H* 04/10/19 04/10/19 04/10/19 10:15 10:15 13:10 WBC RBC Hgb Hct MCV MCH MCHC RDW RDW Differential Plt Count MPV Immature Gran % (Auto) Neut % (Auto) Lymph % (Auto) [place] % (Auto) Eos % (Auto) Baso % (Auto) Absolute Neuts (auto) Absolute Lymphs (auto) Total Counted Differential Comment Diff Path Review Platelet Estimate APTT Sodium Potassium Chloride Carbon Dioxide Anion Gap BUN Creatinine Estim Creat Clear Calc Est GFR (MDRD) Af Amer Est GFR (MDRD) Non-Af BUN/Creatinine Ratio Glucose Hemoglobin A1c 5.4 Calcium Magnesium 2.0 Total Bilirubin Direct Bilirubin AST ALT Alkaline Phosphatase Troponin I 0.102 H Total Protein Albumin Globulin Triglycerides Cholesterol LDL Cholesterol VLDL Cholesterol HDL Cholesterol Urine Color Urine Clarity Urine pH Ur Specific [place] Urine Protein Urine Glucose (UA) Urine Ketones Urine Occult Blood Urine Nitrite Urine Bilirubin Urine Urobilinogen Ur Leukocyte Esterase Urine RBC Urine WBC Ur Squamous Epith Cells Urine Bacteria Urine Mucus Urine Opiates Screen Urine Methadone Screen Ur Barbiturates Screen Ur Phencyclidine Scrn Ur Amphetamines Screen U Methamphetamin-MDMA U Benzodiazepines Scrn Urine Cocaine Screen U Cannabinoids Screen Ur Drug Screen Comment Ethyl Alcohol 04/10/19 04/10/19 04/10/19 16:15 21:10 21:10 WBC RBC Hgb Hct MCV MCH MCHC RDW RDW Differential Plt Count MPV Immature Gran % (Auto) Neut % (Auto) Lymph % (Auto) [place] % (Auto) Eos % (Auto) Baso % (Auto) Absolute Neuts (auto) Absolute Lymphs (auto) Total Counted Differential Comment Diff Path Review Platelet Estimate APTT Sodium Potassium Chloride Carbon Dioxide Anion Gap BUN Creatinine Estim Creat Clear Calc Est GFR (MDRD) Af Amer Est GFR (MDRD) Non-Af BUN/Creatinine Ratio Glucose Hemoglobin A1c Calcium Magnesium Total Bilirubin Direct Bilirubin AST ALT Alkaline Phosphatase Troponin I 0.099 H Total Protein Albumin Globulin Triglycerides Cholesterol LDL Cholesterol VLDL Cholesterol HDL Cholesterol Urine Color Yellow Urine Clarity Clear Urine pH 7.0 Ur Specific [place] 1.010 Urine Protein 30 H Urine Glucose (UA) Normal Urine Ketones 5 H Urine Occult Blood Negative Urine Nitrite Negative Urine Bilirubin Negative Urine Urobilinogen 1 H Ur Leukocyte Esterase Negative Urine RBC 0 SEEN Urine WBC 0 SEEN Ur Squamous Epith Cells 0-5 SEEN Urine Bacteria 0 SEEN Urine Mucus 0 SEEN Urine Opiates Screen NEGATIVE Urine Methadone Screen NEGATIVE Ur Barbiturates Screen NEGATIVE Ur Phencyclidine Scrn NEGATIVE Ur Amphetamines Screen NEGATIVE U Methamphetamin-MDMA NEGATIVE U Benzodiazepines Scrn NEGATIVE Urine Cocaine Screen NEGATIVE U Cannabinoids Screen POSITIVE H Ur Drug Screen Comment Ethyl Alcohol 04/11/19 04/11/19 04/11/19 05:20 05:20 05:20 WBC 3.1 L RBC 4.23 L Hgb 14.6 Hct 41.5 MCV 98.1 H MCH 34.5 H MCHC 35.2 RDW 13.1 RDW Differential 45.4 H Plt Count 42 L* MPV 9.4 Immature Gran % (Auto) 0.300 Neut % (Auto) 65.4 Lymph % (Auto) 23.7 [place] % (Auto) 9.0 Eos % (Auto) 1.3 Baso % (Auto) 0.3 Absolute Neuts (auto) 2.0 Absolute Lymphs (auto) 0.74 L Total Counted Not Reportable Differential Comment SCANNED Diff Path Review May foll Platelet Estimate MKD DEC APTT 27.1 Sodium 140 Potassium 3.6 Chloride 103 Carbon Dioxide 26.0 Anion Gap 11 BUN 9 Creatinine 0.73 Estim Creat Clear Calc 118.37 Est GFR (MDRD) Af Amer 145 Est GFR (MDRD) Non-Af 120 BUN/Creatinine Ratio 12.3 Glucose 93 Hemoglobin A1c Calcium 9.4 Magnesium Total Bilirubin 1.10 H Direct Bilirubin 0.28 AST 164 H ALT 163 H Alkaline Phosphatase 58 Troponin I Total Protein 7.9 Albumin 3.8 Globulin 4.1 Triglycerides Cholesterol LDL Cholesterol VLDL Cholesterol HDL Cholesterol Urine Color Urine Clarity Urine pH Ur Specific [place] Urine Protein Urine Glucose (UA) Urine Ketones Urine Occult Blood Urine Nitrite Urine Bilirubin Urine Urobilinogen Ur Leukocyte Esterase Urine RBC Urine WBC Ur Squamous Epith Cells Urine Bacteria Urine Mucus Urine Opiates Screen Urine Methadone Screen Ur Barbiturates Screen Ur Phencyclidine Scrn Ur Amphetamines Screen U Methamphetamin-MDMA U Benzodiazepines Scrn Urine Cocaine Screen U Cannabinoids Screen Ur Drug Screen Comment Ethyl Alcohol Discharge Diet: Low fat/ Low Cholesterol Weight Bearing Status: Weight bearing as tolerated Call your doctor if you observe: Fever of 101 or Higher Home Medications: Medications to take at Discharge Lisinopril [Zestril] 40 mg PO DAILY #30 tablet 04/11/19 Metoprolol Tartrate [Lopressor (beta lexi)] 50 mg PO BID #60 tablet 04/11/19 Following Prescrptions Were Given to Patient: Lisinopril [Zestril] 40 mg PO DAILY #30 tablet Metoprolol Tartrate [Lopressor (beta lexi)] 50 mg PO BID #60 tablet Primary Care Physician: Dwaine Hendrix MD [Primary Care Provider] - Please follow up with your Primary Care Physician in: one week Please Follow Up With: Andrew Moreno MD When: one week Patient Instructions: What Is Angina? Disposition: Home Minutes spent on discharge:: 45 Patient Condition:: Stable Medical Necessity - Tobacco Use Smoking Status: Light Smoker (<10/day) Tobacco Use: Cigarettes Meaningful Use Info Meaningful Use Diagnoses (Choose all that apply): None applicable Code Visit Inpatient E&M: 13441 Disch Hosp
[2019-04-11] MEDS: 0.9% Normal Saline 1,000 ML 75 ML IV (11:29)
[2019-04-11 11:30] LABS: Pathologist Review Reviewed
--- NOTE | 2019-04-11 14:11 | NURSING ---
Charity, polls or surveys interviewer spoke [facility] Dr. Moreno regarding when patient is able to return to work. Patient is off work through Tuesday 04/17. Work excuse provided to patient. Discharge teaching reviewed with patient and his father. Both voice understanding of same.
== END 2019-04-11 12:10 | disposition home or self-care (01) ==
LOC: ED 11:42 → PCU 12:02
PROVIDERS: Admitting Provider Student in an Organized Health Care Education/Training Program; Emergency Provider Emergency Medicine; Family Provider Family Medicine; PCP Family Medicine; Visit Provider Student in an Organized Health Care Education/Training Program
DX: R07.89 Other chest pain (principal); R06.02 Shortness of breath; I44.0 Atrioventricular block, first degree; D61.818 Other pancytopenia; F10.20 Alcohol dependence, uncomplicated; F17.220 Nicotine dependence, chewing tobacco, uncomplicated; F17.210 Nicotine dependence, cigarettes, uncomplicated; R03.0 Elevated blood-pressure reading, without diagnosis of hypertension; Z82.49 Family history of ischemic heart disease and other diseases of the circulatory system
CPT/HCPCS: 36415; 71046; 80048; 80053; 80061; 80076; 80307; 80320; 81001; 83036; 83690; 83735; 84484; 85025; 85730; 93005; 93306; 93458; 96374; 96376; 99152; 99153; 99218; 99285; 99406; J7030; Q9967; A4216; C1769; C1894; G0378; G0480

== ENCOUNTER → 2020-07-04 | Outpatient (CLI) | payer BC, SELFPAY ==
[2019-04-10 12:43] VITALS: BMI 25.0
[2020-07-04 17:43] LABS: Absolute Neutrophil Count 5.2 X10^3/uL (2.0-7.7); Basophil# 0.01 X10^3/uL; Basophil% 0.2 % (0-1); Eosinophil# 0.01 X10^3/uL; Eosinophils% 0.2 % (0-5); Hematocrit 39.4 % (40-54); Hemoglobin 13.3 g/dL (13.0-16.5); Lymphocyte % 15.2 % (19-41); Mean Corp Hgb Conc 33.8 g/dL (32-36); Mean Corpuscular Hgb 33.8 pg (27.0-32.0); Monocyte# 0.33 X10^3/uL; NRBC Flagged by Analyzer 0 % (0-5); Neutrophil # 5.19 X10^3/uL (2.7-7.7); Neutrophil % 78.9 % (47-70); POSITIVE COUNT YES; Platelet Count 53 K/mm3 (150-450); RBC Distribution Width CV 14.5 % (11.6-14.6); RBC Distribution Width SD 52.2 fl (35.1-43.9); Red Blood Count 3.94 M/mm3 (4.6-6.2); White Blood Count 6.6 K/mm3 (4.4-11.0)
[2020-07-04 17:44] LABS: Differential Indicated SCAN CRITERIA MET
[2020-07-04 18:27] LABS: AST(SGOT) 166 U/L (15-37); Alanine Aminotransfer ALT/SGPT 110 U/L (16-61); Albumin, Serum 3.8 g/dL (3.2-5.0); Alkaline Phosphatase 60 U/L (45-117); Anion Gap 7 (5-15); BUN 20 mg/dL (7-18); BUN/Creat Ratio 12.5 RATIO (10-20); Chloride 100 mmol/L (98-107); EST Glomerular Filtration Rate 48 mL/min (>60); Est Glom Filt Rate - Afr Amer 58 mL/min (>60); Globulin 3.8 g/dL (2.2-4.2); Glucose 100 mg/dL (74-106); Potassium 4.2 mmol/L (3.5-5.1); Protein, Total 7.6 g/dL (6.4-8.2); Sodium Level 136 mmol/L (136-145); Thyroid Stim Hormone (TSH) 2.75 uIU/mL (0.358-3.74)
== END | disposition home or self-care (01) ==
LOC: POLAB3 16:56
PROVIDERS: PCP Family Medicine Geriatric Medicine; Visit Provider Family Medicine Geriatric Medicine
DX: R53.83 Other fatigue (principal)
CPT/HCPCS: 36415; 80053; 84443; 85025

== ENCOUNTER → 2020-07-05 | Outpatient (CLI) | payer SELFPAY ==
[2019-04-10 12:43] VITALS: BMI 25.0
--- NOTE | 2020-07-05 08:33 | RAD_ITS ---
STUDY: X-RAY - LEFT SHOULDER REASON FOR EXAM: Male, 55 years old. PAIN TECHNIQUE: 4 view(s) of the shoulder. COMPARISON: Comparison is made with prior examination dated 03/08/2015. FINDINGS: Nondisplaced fracture of the lateral aspect of the clavicle. Normal glenohumeral articulation. There is widening of the AC joint, with displacement of the clavicle, consistent with a Type III acromioclavicular joint separation. Normal acromion. Normal humeral head and visualized proximal humerus. The soft tissue structures are unremarkable. Normal visualized pulmonary apex. RAD/Shoulder min 2 Views IMPRESSION: Nondisplaced fracture of the lateral aspect of the clavicle with a type III AC joint separation. Electronically Signed: Jonathan Huertas, at 12:38 EDT , Service support ,
--- NOTE | 2020-07-05 08:34 | RAD_ITS ---
STUDY: X-RAY - LEFT CLAVICLE REASON FOR EXAM: Male, 55 years old. PAIN, INJURY TO MEDIAL CLAVICLE , OLD INJURY TO LATERAL CLAVICLE THAT STILL HAS PAIN TECHNIQUE: 2 view(s) of the clavicle. COMPARISON: Comparison is made with prior study dated 03/08/2015. FINDINGS: Nondisplaced fracture of the distal portion of the clavicle. Normal acromioclavicular articulation. Normal visualized sternoclavicular articulation. Normal visualized pulmonary apex. RAD/Clavicle IMPRESSION: Nondisplaced fracture of the lateral portion of the clavicle. Electronically Signed: Jonathan Huertas, at 9:54 EDT , Service support ,
[2020-07-05 13:06] LABS: Anion Gap 7 (5-15); BUN 21 mg/dL (7-18); Calcium,Total 8.8 mg/dL (8.5-10.1); Chloride 99 mmol/L (98-107); EST Glomerular Filtration Rate 56 mL/min (>60); Est Glom Filt Rate - Afr Amer 68 mL/min (>60); Glucose 96 mg/dL (74-106); Sodium Level 134 mmol/L (136-145)
== END | disposition home or self-care (01) ==
LOC: MTDU 08:32
PROVIDERS: PCP Family Medicine Geriatric Medicine; Referring Provider Family Medicine Geriatric Medicine; Visit Provider Family Medicine Geriatric Medicine
DX: R06.02 Shortness of breath (principal); N17.9 Acute kidney failure, unspecified; N39.0 Urinary tract infection, site not specified
CPT/HCPCS: 36415; 73000; 73030; 80048; 87077; 87086; 87088; 87186; 87633; 87635; C9803; U0003

== ENCOUNTER 2021-02-13 17:04 | Emergency (ER) | payer MEDICAID, SELFPAY ==
[2020-07-12 10:41] VITALS: BMI 25.0
[2021-02-13 17:05] VITALS: BP 169/114; PULSE 114; RESP 18; TEMP 36.6; O2SAT 96; BMI 26.2
[2021-02-13 17:11] VITALS: PULSE 110
[2021-02-13] MEDS: 0.9% Normal Saline 1,000 ML 1000 ML IV (17:55)
[2021-02-13 18:05] LABS: Absolute Lymphocyte Count 1.52 X10^3/uL (0.83-4.51); Absolute Neutrophil Count 2.5 X10^3/uL (2.0-7.7); Basophil# 0.01 X10^3/uL; Basophil% 0.2 % (0-1); Eosinophil# 0.02 X10^3/uL; Eosinophils% 0.5 % (0-5); Hematocrit 39.3 % (40-54); Hemoglobin 13.1 g/dL (13.0-16.5); Lymphocyte # 1.52 X10^3/ul (0.83-4.51); Lymphocyte % 34.9 % (19-41); Mean Corp Hgb Conc 33.3 g/dL (32-36); Mean Corpuscular Hgb 34.4 pg (27.0-32.0); Mean Corpuscular Volume 103.1 fL (80-94); Mean Platelet Vol. 10.3 fl (6.2-12.0); Monocyte# 0.28 X10^3/uL; Monocyte% 6.4 % (0-10); NRBC Flagged by Analyzer 0 % (0-5); Neutrophil % 57.5 % (47-70); POSITIVE COUNT YES; RBC Distribution Width CV 13.4 % (11.6-14.6); RBC Distribution Width SD 51.2 fl (35.1-43.9); Red Blood Count 3.81 M/mm3 (4.6-6.2); White Blood Count 4.4 K/mm3 (4.4-11.0)
[2021-02-13 18:18] LABS: Differential Indicated SCAN CRITERIA MET; Platelet Count 23 K/mm3 (150-450)
[2021-02-13 18:22] LABS: ALB/GLOB Ratio 0.8 RATIO (0.9-2.4); AST(SGOT) 165 U/L (15-37); Alanine Aminotransfer ALT/SGPT 105 U/L (16-61); Albumin, Serum 3.7 g/dL (3.2-5.0); Alkaline Phosphatase 83 U/L (45-117); Anion Gap 12 (5-15); BUN 12 mg/dL (7-18); BUN/Creat Ratio 13.6 RATIO (10-20); Calcium,Total 8.7 mg/dL (8.5-10.1); Chloride 103 mmol/L (98-107); Creatinine, Serum 0.88 mg/dL (0.70-1.30); EST Glomerular Filtration Rate 96 mL/min (>60); Est Glom Filt Rate - Afr Amer 116 mL/min (>60); Estimated Creatinine Clearance 95.96 ml/min; Globulin 4.4 g/dL (2.2-4.2); Glucose 97 mg/dL (74-106); Lipase 148 U/L (73-393); Potassium 3.8 mmol/L (3.5-5.1); Protein, Total 8.1 g/dL (6.4-8.2); Sodium Level 140 mmol/L (136-145)
[2021-02-13 18:39] LABS: Platelet Estimate MKD DEC (ADEQ)
[2021-02-13 18:40] LABS: Anisocytosis 1+; Macrocytosis 1+; Red Cell Morphology N CHROM NORMAL (NORM C&C)
[2021-02-13 19:27] VITALS: BP 151/108
--- NOTE | 2021-02-13 19:53 | ED.VISSUMM ---
- ER Visit Summary Date of Service: 02/13/21 Chief Complaint: Alcohol intoxication History of Present Illness: The patient is a 56 M who presents with alcohol intoxication that occurred today. Patient states he drinks approximately 6-10 beers every day. Patient is not interested in alcohol detox at this time. Patient admits to a mild sore throat. Patient denies any suicidal or homicidal ideations. Patient denies any visual or auditory hallucinations. Patient denies any tremors or seizures. Patient is unsure why his father called EMS to have him brought to the emergency department. Physical Examination: Vital signs are stable except for mildly elevated blood pressure 169/114 and a mild tachycardia of 114. Patient is afebrile. Patient is in no acute distress. Oral mucosa is pink and moist. Neck is supple. Trachea is midline. There is no JVD. Heart was regular rate and rhythm. Lungs are clear and equal bilaterally. There is good respiratory effort. Abdomen is soft. Bowel sounds are normal. There is no tenderness. Cranial nerves II through XII are grossly intact. There are no focal motor or sensory deficits. Test Results: Serum alcohol was elevated at 444. CBC showed a thrombocytopenia of 23. Comprehensive metabolic profile was essentially within normal limits. Lipase was normal. Emergency Department Course and Treatment: Patient was observed in the emergency department. Patient was able to call for a sober responsible ride. Patient was discharged with his father. Patient was instructed to follow-up with his primary care physician in 5 to 7 days. Patient was also given a referral to 180. Patient understood and was agreeable with the plan. All questions were answered. Disposition: Discharge home Impression: 1. Alcohol intoxication 2. Thrombocytopenia This note was generated with [employer] dictation software. It may contain incorrect words, spelling, and punctuation that were not noted in review of the chart prior to signing ED Disposition - Plan for ED Patient: Disposition: Home or Assisted Living Diagnosis: Alcohol intoxication, Thrombocytopenia Instructions: ED Alcohol Intoxication Referrals: Rosalinda Shipley [NON-STAFF] - 3-5 Days [facility] [STAFF PHYSICIAN] - As Needed
[2021-02-13 19:58] VITALS: BP 138/100
[2021-02-14 11:51] LABS: Pathologist Review Reviewed
== END 2021-02-13 20:41 | disposition home or self-care (01) ==
PROVIDERS: Emergency Provider Emergency Medicine
DX: F10.129 Alcohol abuse with intoxication, unspecified (principal); D69.6 Thrombocytopenia, unspecified; F17.220 Nicotine dependence, chewing tobacco, uncomplicated
CPT/HCPCS: 80053; 82077; 83690; 85025; 96360; 96361; 99285; J7030

== ENCOUNTER 2021-02-14 14:25 | Inpatient (IN) | payer MEDICAID, SELFPAY ==
[2021-02-13 17:05] VITALS: BMI 26.2
[2021-02-14] VITALS (19 sets, daily range): BP systolic 150–187; BP diastolic 99–140; PULSE 111–154; RESP 18–23; TEMP 36.2–36.9; O2SAT 96–100; BMI 26.0; BMI 25.3
--- NOTE | 2021-02-14 14:29 | EKG12_ITS ---
Test Reason : ALOHOLISM Blood Pressure : / mmHG Vent. Rate : 118 BPM Atrial Rate : 118 BPM P-R Int : 182 ms QRS Dur : 096 ms QT Int : 316 ms P-R-T Axes : 035 -05 018 degrees QTc Int : 442 ms Sinus tachycardia with occasional Premature ventricular complexes Otherwise normal ECG Confirmed by MONIKA DALY, MARIO ([id number]), multimedia editor ART OBRIEN ([id number]) on 02/18/2021 9:16:44 AM Referred By: FELICITA Confirmed By:FAROOQ FRANK MD
--- NOTE | 2021-02-14 14:30 | ED.DCSUM_ITS ---
History of Present Illness Chief Complaint: ETOH Intox Informant: Patient Onset: Today Context: Gradual Onset Timing: Continuous Current Severity: Moderate Maximum Severity: Moderate Narrative: Patient is a 56-year-old male medical history significant for hypertension, cardiomyopathy, longstanding alcohol abuse who presents to the emergency department alcohol withdrawal. The patient last drank yesterday. He is actually here in the emergency department at that time due to his intoxication. At that point, he refused detox. He states that he has not been drinking since yesterday. Today, he started to feel tremulous, diaphoretic, and very shaky. He has had alcohol withdrawal before, but has never had a seizure. He denies fever. He denies chest pain or shortness of breath. He states he is otherwise been in his normal state of health. The patient does have comorbidities, but states he is not take any medication of his medical to the doctor. Prior similar symptoms: Yes Recent Illness/Hospitalization: No Past Medical History - Allergies and Home Meds Allergies/Adverse Reactions: Allergies No Known Allergies Allergy (Verified 02/14/21 14:25) Primary Care Physician: Care Physician,No Primary [Primary Care Provider] - Prior records reviewed: Yes Past Medical History: - - Hypertension, cardiomyopathy, alcohol abuse, alcoholic hepatitis Surgical History: noncontributory Smoking Status: Former smoker - Family History Paternal Family History: Family History (Last Updated 07/12/20 @ 11:17 by Janet Black) Grandfather Myocardial infarction Uncle Myocardial infarction Mother Cancer Father Cancer Family History: Reports: Heart Disease - grandfather and uncle of heart attacks at a young age. Maternal Family History: Family History (Last Updated 07/12/20 @ 11:17 by Janet Black) Grandfather Myocardial infarction Uncle Myocardial infarction Mother Cancer Father Cancer Family History: Reports: Cancer - mother had bladder cancer Review of Systems General: Reports: Malaise, Sweats. Denies: Chills, Fever Eyes: Denies: Visual changes - bilaterally, Diplopia ENT: Denies: Rhinorrhea, Sore throat Cardiovascular: Reports: Palpitations. Denies: Chest pain Respiratory: Denies: Dyspnea, Cough, Dyspnea on exertion Gastrointestinal: Reports: Nausea, Vomiting. Denies: Abdominal pain, Diarrhea, Melena, Hematochezia Genitourinary: Denies: Dysuria, Hematuria, Frequency Musculoskeletal: Denies: Back pain, Extremity Pain Skin: Denies: Rash, Wounds Neurological: Denies: Headache, Weakness, Numbness Psych: Reports: Anxiety Physical Exam Vital Signs/Narrative: Vital Signs Temp Pulse Resp BP Pulse Ox 02/14/21 14:26 97.9 F 154 H 20 H 171/104 H 96 Inital Vital Signs reviewed: Yes General: Well developed, Unkempt Head: Normocephalic, Atraumatic Eyes: Perrl, EOMI ENT: Moist mucous membranes, No rhinorrhea, TM's clear Neck: Supple, Nontender, No lymphadenopathy Cardiovascular: No murmurs, Tachycardia Respiratory: No distress, CTA bilaterally, Chest nontender Abdomen: Soft, Nontender, Nondistended, Normal bowel sounds Back: Nontender Extremities: Nontender Skin: No rash, Diaphoresis. Negative for: Cyanosis, Jaundice Neurological: Alert, Oriented x3, Cranial nerves II-XII grossly intact, Normal Strength Psychological: Normal affect Diagnostic/Tx/Re-eval Abnormal Lab Results 02/14/21 02/14/21 02/14/21 14:35 14:35 14:35 WBC 6.1 RBC 3.72 L Hgb 12.9 L Hct 38.6 L MCV 103.8 H MCH 34.7 H MCHC 33.4 RDW Std Deviation 51.3 H RDW Coeff of Philip 13.4 Plt Count 23 L* MPV 10.1 Immature Gran % (Auto) 0.800 Neut % (Auto) 78.2 H Lymph % (Auto) 16.4 L [place] % (Auto) 4.4 Eos % (Auto) 0.0 Baso % (Auto) 0.2 Absolute Neuts (auto) 4.8 Absolute Lymphs (auto) 1.00 Nucleated RBC % 0 Platelet Estimate MKD DEC Sodium 136 Potassium 3.9 Chloride 99 Carbon Dioxide 18.0 L Anion Gap 19 H BUN 9 Creatinine 1.07 Estim Creat Clear Calc 78.92 Est GFR (MDRD) Af Amer 93 Est GFR (MDRD) Non-Af 77 BUN/Creatinine Ratio 8.4 L Glucose 102 Calcium 9.3 Magnesium 1.6 Total Bilirubin 2.20 H AST 141 H ALT 97 H Alkaline Phosphatase 87 Total Protein 8.8 H Albumin 4.0 Globulin 4.8 H Albumin/Globulin Ratio 0.8 L Urine Opiates Screen Urine Methadone Screen Ur Barbiturates Screen Ur Phencyclidine Scrn Ur Amphetamines Screen U Methamphetamin-MDMA U Benzodiazepines Scrn Urine Cocaine Screen U Cannabinoids Screen Ur Drug Screen Comment Ethyl Alcohol < 3.0 02/14/21 14:40 WBC RBC Hgb Hct MCV MCH MCHC RDW Std Deviation RDW Coeff of Philip Plt Count MPV Immature Gran % (Auto) Neut % (Auto) Lymph % (Auto) [place] % (Auto) Eos % (Auto) Baso % (Auto) Absolute Neuts (auto) Absolute Lymphs (auto) Nucleated RBC % Platelet Estimate Sodium Potassium Chloride Carbon Dioxide Anion Gap BUN Creatinine Estim Creat Clear Calc Est GFR (MDRD) Af Amer Est GFR (MDRD) Non-Af BUN/Creatinine Ratio Glucose Calcium Magnesium Total Bilirubin AST ALT Alkaline Phosphatase Total Protein Albumin Globulin Albumin/Globulin Ratio Urine Opiates Screen NEGATIVE Urine Methadone Screen NEGATIVE Ur Barbiturates Screen NEGATIVE Ur Phencyclidine Scrn NEGATIVE Ur Amphetamines Screen NEGATIVE U Methamphetamin-MDMA NEGATIVE U Benzodiazepines Scrn NEGATIVE Urine Cocaine Screen NEGATIVE U Cannabinoids Screen NEGATIVE Ur Drug Screen Comment Ethyl Alcohol - Rhythm Strip Rhythm Strip: Sinus Tach Rate: 120 Ectopy: PVC(s) - EKG Initial EKG Interpretation: No Acute Injury Pattern, Sinus Tachycardia Prior: Unchanged - Medical Decision Making The patient has a longstanding history of alcohol abuse. His last drink was yesterday. He presents tachycardic and tremulous. He is not experiencing or demonstrating any symptoms of delirium. IV was established. Patient was given 2 mg of Ativan. His initial heart rate went from 150 down to the 1 teens. He does admit to some symptomatic improvement. His blood pressure is also improved. Labs were obtained. Liver functions are mildly elevated consistent with his longstanding history of alcohol abuse. He is also markedly thrombocytopenic, also consistent with history of alcohol abuse. Patient was given fluids. EKG was obtained which showed sinus tachycardia without acute ischemia. Patient was given thiamine and folate acid. He was observed. Patient was given a second dose of Ativan and Continued provement of his symptoms. At this point, he is now requesting inpatient detox. I do feel that this is reasonable especially given his longstanding history of alcohol abuse and withdrawal symptoms. Patient was discussed with the hospitalist. Impression 1. Alcohol abuse and withdrawal ED Disposition - Plan for ED Patient: Referrals: Care Physician,No Primary [Primary Care Provider] -
[2021-02-14] MEDS: LORazepam 2 MG/ML Syringe IV ×3 (14:39→23:46)
[2021-02-14] MEDS: 0.9% Normal Saline 1,000 ML 1000 ML IV (14:39)
[2021-02-14 14:44] LABS: Absolute Neutrophil Count 4.8 X10^3/uL (2.0-7.7); Basophil# 0.01 X10^3/uL; Basophil% 0.2 % (0-1); Hematocrit 38.6 % (40-54); Hemoglobin 12.9 g/dL (13.0-16.5); Lymphocyte % 16.4 % (19-41); Mean Corp Hgb Conc 33.4 g/dL (32-36); Mean Corpuscular Hgb 34.7 pg (27.0-32.0); Mean Corpuscular Volume 103.8 fL (80-94); Mean Platelet Vol. 10.1 fl (6.2-12.0); Monocyte# 0.27 X10^3/uL; Monocyte% 4.4 % (0-10); NRBC Flagged by Analyzer 0 % (0-5); Neutrophil # 4.76 X10^3/uL (2.7-7.7); Neutrophil % 78.2 % (47-70); POSITIVE COUNT YES; RBC Distribution Width CV 13.4 % (11.6-14.6); RBC Distribution Width SD 51.3 fl (35.1-43.9); Red Blood Count 3.72 M/mm3 (4.6-6.2); White Blood Count 6.1 K/mm3 (4.4-11.0)
[2021-02-14 14:49] LABS: Differential Indicated SCAN CRITERIA MET; Platelet Count 23 K/mm3 (150-450)
[2021-02-14 15:00] LABS: Alcohol, Blood (Medical)-Serum < 3.0 mg/dL; Platelet Estimate MKD DEC (ADEQ)
[2021-02-14 15:03] LABS: ALB/GLOB Ratio 0.8 RATIO (0.9-2.4); AST(SGOT) 141 U/L (15-37); Alanine Aminotransfer ALT/SGPT 97 U/L (16-61); Alkaline Phosphatase 87 U/L (45-117); Anion Gap 19 (5-15); BUN 9 mg/dL (7-18); BUN/Creat Ratio 8.4 RATIO (10-20); Calcium,Total 9.3 mg/dL (8.5-10.1); Chloride 99 mmol/L (98-107); Creatinine, Serum 1.07 mg/dL (0.70-1.30); EST Glomerular Filtration Rate 77 mL/min (>60); Est Glom Filt Rate - Afr Amer 93 mL/min (>60); Estimated Creatinine Clearance 78.92 ml/min; Globulin 4.8 g/dL (2.2-4.2); Glucose 102 mg/dL (74-106); Magnesium 1.6 mg/dL (1.6-2.6); Potassium 3.9 mmol/L (3.5-5.1); Protein, Total 8.8 g/dL (6.4-8.2); Sodium Level 136 mmol/L (136-145)
[2021-02-14 15:05] LABS: Amphetamine Urine VISTA NEGATIVE (<1000 ng/mL); Barbiturate Urine VISTA NEGATIVE (< 200 ng/mL); Benzodiazepine Urine VISTA NEGATIVE (< 200 ng/mL); Cocaine Urine VISTA NEGATIVE (< 300 ng/mL); Ecstacy Urine VISTA NEGATIVE (< 500 ng/mL); Methadone Urine VISTA NEGATIVE (< 300 ng/mL); PCP Urine VISTA NEGATIVE (< 25 ng/mL); THC Urine VISTA NEGATIVE (< 50 ng/mL); Vista UDS pH Range 5
[2021-02-14] MEDS: LORazepam 2 MG/ML Syringe 1 MG IV (15:16)
--- NOTE | 2021-02-14 15:43 | NURSING ---
MED SURG ASHELFAH ALCOHOL WITHDRAWAL
--- NOTE | 2021-02-14 15:43 | NURSING ---
DR ANDRE IN ROOM
--- NOTE | 2021-02-14 15:48 | NURSING ---
PATIENT GOING TO ICU
--- NOTE | 2021-02-14 15:53 | HP.PCM_ITS ---
Problem List (1) Acute alcohol withdrawal Status: Acute (2) Thrombocytopenia Status: Chronic (3) Alcohol abuse Status: Chronic (4) Essential (primary) hypertension Status: Chronic (5) Nonischemic cardiomyopathy Status: Chronic History of Present Illness Date of Admission: 02/14/21 Chief Complaint: Alcohol abuse requesting detox. The patient is a 56 year old M with past medical history as mentioned above presented to the emergency room requesting admission for acute alcohol withdrawa l for detoxification. Patient presented to the emergency room yesterday because of alcohol intoxication, found to have blood alcohol level is 444, was not having significant symptoms of withdrawal and he was discharged home. Today, patient came back requesting admission for acute alcohol withdrawal for medical stabilization. His last drink was yesterday afternoon. He is complaining of severe shakiness, all over the body, constant, associated with anxiety and restlessness as well as nausea and without aggravating or relieving factors. He mentioned that he has been drinking every day for many years, he drinks 6-12 beers daily. He denied use of narcotics or street drugs. He mentioned that he went for detox program long time ago but he relapsed. He had a history of hypertension and he supposed to be medication but he is not compliant and he does not take medication. He had a history of nonischemic cardiomyopathy which is likely alcoholic but he is not taking a medication for it. In the emergency department, patient was afebrile, tachycardic up with heart rate up to 150s, blood pressure was elevated up to 180 systolic, pulse ox was 98% on room air. Routine blood work was remarkable for hemoglobin of 12.9 g/dL, platelet count of 23,000, BMP was unremarkable. LFT revealed bilirubin of 2.2, AST 141, ALT 97 and alk phos is 87. Urine drug screen was negative. Blood alcohol level was less than 3 today. EKG revealed sinus tachycardia, no acute ischemic changes. He is being admitted for acute alcohol withdrawal for medical stabilization. Past Medical History Past Medical History (Chronic Problems): Chronic Problems (Last Updated 02/14/21 @ 15:[address] Demarco Terrell MD) Thrombocytopenia (Chronic) Alcohol abuse (Chronic) Essential (primary) hypertension (Chronic) Nonrheumatic mitral (valve) prolapse (Chronic) Nonischemic cardiomyopathy (Chronic) Medical History: Medical History (Last Updated 02/14/21 @ 15:[address] Demarco Terrell MD) Essential (primary) hypertension (Chronic) I10 Nonrheumatic mitral (valve) prolapse (Chronic) I34.1 Nonischemic cardiomyopathy (Chronic) I42.8 Alcoholic hepatitis K70.10 Alcoholism /alcohol abuse F10.20 Chewing tobacco nicotine dependence F17.220 Pancytopenia D61.818 Chewing tobacco use (Inactive) Z72.0 Allergies No Known Allergies Allergy (Verified 02/14/21 14:25) Home Medications: Ambulatory Orders Medication Instructions Recorded NK 07/12/20 Surgical History: Surgical History (Last Reviewed 07/12/20 @ 11:17 by Janet Black) History of left heart catheterization Onset Date: 04/11/19 Z98.890 Surgical History: tonsillectomy Psychiatric History: No pertinent psych hx Lives: With Family Smoking Status: Former smoker Alcohol: Heavy Drugs: None - *Family History Paternal Family History: Family History (Last Updated 07/12/20 @ 11:17 by Janet Black) Grandfather Myocardial infarction Uncle Myocardial infarction Mother Cancer Father Cancer History Items: Heart Disease - grandfather and uncle of heart attacks at a young age. Maternal Family History: Family History (Last Updated 07/12/20 @ 11:17 by Janet Black) Grandfather Myocardial infarction Uncle Myocardial infarction Mother Cancer Father Cancer History Items: Cancer - mother had bladder cancer Review of Systems Constitutional: Reports: Anorexia, Malaise. Denies: Chills, Fever, Weakness Eyes: Denies: Blurred vision, Double vision, Drainage, Redness HEENT: Denies: Difficulty Hearing, Ear Pain, Eye Pain, Nasal Congestion, Sore Throat Cardiovascular: Denies: Chest Pain, Chest Pressure, Edema, Heaviness, Palpitations, Syncope Respiratory: Denies: Cough, Pleuritic Pain, Shortness of Breath, Sputum production, Wheezing Gastrointestinal: Reports: Nausea. Denies: Abdominal Pain, Constipation, Diarrhea, Vomiting Genitourinary: Denies: Dysuria, Frequency, Hematuria Musculoskeletal: Denies: Arm Pain, Back Pain, Foot Pain Skin: Denies: Dryness, Rash Neurological: Reports: Tremor. Denies: Balance problems, Double vision, Change in Speech, Slurred speech, Confusion, Headaches, Incoordination Psychiatric: Denies: Anxiety, Depression Endocrine: Denies: Change in Body Habitus, Polydipsia, Polyuria VTE Information - Inpt Only VTE Present on Admission: No VTE Mechan Device Prophylaxis: None VTE Pharm Prophylaxis ordered?: No - Physical Exam Vitals/I&O's: Vital Signs Temp Pulse Resp BP Pulse Ox 97.1 F L 123 H 21 H 187/128 H 98 02/14/21 15:49 02/14/21 15:49 02/14/21 15:49 02/14/21 15:49 02/14/21 15:49 Oxygen Delivery Method Room Air Weight: 176 lb 5.917 oz Body Mass Index (BMI) 26.0 Intake and Output for Last 24 Hours 02/12/21 02/13/21 02/14/21 23:59 23:59 23:59 Intake Total 1101.2 / 1101.2 Balance 1101.2 / 1101.2 General: Alert, Oriented x3, Cooperative, - - Shakiness, restless. HEENT: Atraumatic, PERRLA, EOMI, Normocephalic Oral: Moist Mucosa, No Gingival or Mucosal Lesions/ Ulcerations Neck: Supple, No JVD, Negative Carotid Bruits, Trachea Midline, Thyroid Normal Size and Texture Lungs: Clear to auscultation, No rhonchi, No wheeze, No rales, Diminished Cardiovascular: Regular rate, Regular Rhythm, Normal S1, Normal S2, PMI Normal, Tachycardic Abdomen: Bowel Sounds Present, Soft, Non Tender, Non-Distended, No Hepato-splenomegaly Extremities: No clubbing, No cyanosis, No edema Skin: No rashes, No breakdown Lymphatic: No Cervical, Supraclavicular, or Inguinal Adenopathy Neurological: Cranial nerves II-XII grossly intact, Motor Exam 5/5 strength throughout Psych/Mental Status: Anxious, Restless, Alert and oriented to time, place, person, mood and affect Laboratory Results 02/14/21 14:35: WBC 6.1, RBC 3.72 L, Hgb 12.9 L, Hct 38.6 L, MCV 103.8 H, MCH 34.7 H, MCHC 33.4, RDW Std Deviation 51.3 H, RDW Coeff of Philip 13.4, Plt Count 23 L*, MPV 10.1, Immature Gran % (Auto) 0.800, Neut % (Auto) 78.2 H, Lymph % (Auto) 16.4 L, [place] % (Auto) 4.4, Eos % (Auto) 0.0, Baso % (Auto) 0.2, Absolute Neuts (auto) 4.8, Absolute Lymphs (auto) 1.00, Nucleated RBC % 0, Platelet Estimate MKD 02/14/21 14:35: Sodium 136, Potassium 3.9, Chloride 99, Carbon Dioxide 18.0 L, Anion Gap 19 H, BUN 9, Creatinine 1.07, Estim Creat Clear Calc 78.92, Est GFR (MDRD) Af Amer 93, Est GFR (MDRD) Non-Af 77, BUN/Creatinine Ratio 8.4 L, Glucose 102, Calcium 9.3, Magnesium 1.6, Total Bilirubin 2.20 H, AST 141 H, ALT 97 H, Alkaline Phosphatase 87, Total Protein 8.8 H, Albumin 4.0, Globulin 4.8 H, Albumin/Globulin Ratio 0.8 L 02/14/21 14:35: Ethyl Alcohol < 3.0 02/14/21 14:40: Urine Opiates Screen NEGATIVE, Urine Methadone Screen NEGATIVE, Ur Barbiturates Screen NEGATIVE, Ur Phencyclidine Scrn NEGATIVE, Ur Amphetamines Screen NEGATIVE, U Methamphetamin-MDMA NEGATIVE, U Benzodiazepines Scrn NEGATIVE, Urine Cocaine Screen NEGATIVE, U Cannabinoids Screen NEGATIVE, Ur Drug Screen Comment Assessment/Plan All Active Problems (Last Updated 02/14/21 @ 15:[address] Demarco Terrell MD) Acute alcohol withdrawal (Acute) This is a 56 years old male patient presented to the emergency room requesting admission for acute alcohol withdrawal for medical stabilization. #1 acute alcohol withdrawal: Blood alcohol level is less than 3, last drink was yesterday. Urine drug screen was negative. Patient is tachycardic, very restless and shaky, hypertensive. Plan: Admit to ICU, critical care monitoring, cardiac diet, initiate alcohol withdrawal protocol with tapering phenobarbital, thiamine and folic acid supplement, multivitamins, as needed Bentyl, gabapentin, Vistaril, Imodium, Zofran and trazodone, CIWA protocol, Ativan as needed, critical care consult, repeat CBC and CMP tomorrow morning, PT OT evaluation and treatment. If phenobarbital and Ativan as needed are not effective, we may need to start patient on sedation with Precedex. #2 severe thrombocytopenia: Secondary to chronic liver disease. Baseline platelet count has been around 30,000-50,000. No active bleeding, plan to check pro time and INR. #3 elevated LFT: Due to alcoholic hepatitis. Liver transaminases are chronic elevated as well as total bilirubin. #4 hypertension: Blood pressures elevated in the ED likely because of withdrawal. Patient is not taking medications. He supposed to be on medications. Plan: Start metoprolol twice daily, lisinopril daily, IV hydralazine as needed. #5 history of nonischemic cardiomyopathy: Compensated, stable, no evidence of acute CHF. It is probably alcoholic cardiomyopathy. He had echocardiogram on April, that showed ejection fraction of 40%. Plan to monitor. #6 DVT prophylaxis: No chemical prophylaxis because of severe thrombocytopenia. This note was generated with [employer] dictation software. It may contain incorrect words, spelling, and punctuation that were not noted in checking the note before signing. Inpatient E&M: [id number] Init Hosp L3
--- NOTE | 2021-02-14 15:56 | CM.ED ---
SOCIAL WORK Referral Source: Dr. Solano Reason for Consult: Substance Abuse-requesting alcohol detox Met with patient in room. Introduced role and reason for referral. Patient reports last drink was yesterday. Patient states is active with [facility] and counselor is Valarie. Patient reports resides in [place] and is self-pay status. Call to [facility] Treatment Navigator, left message for Tova with this worker's call back information to update on patient's admission to [facility]. Plan: Admit to [facility] Ligia Harrison, WASTEWATER TREATMENT ENGINEER, SOFTWARE CLERK
[2021-02-14] MEDS: Phenobarbital Sodium 130 MG/ML Vial 150 MG IV (16:21)
--- NOTE | 2021-02-14 16:29 | ED.RN ---
WITH PT VERBAL CONSENT THIS RN SPOKE WITH PT SISTER, SHANIQUA FINK. SISTER UPDATED ON PT ADMISSION. HER PHONE NUMBER IS [phone].
--- NOTE | 2021-02-14 17:00 | NURSING ---
ICU 1
--- NOTE | 2021-02-14 17:44 | CM.ED ---
SOCIAL WORK Spoke with Angelica from [facility]. Angelica to be in tomorrow to complete assessment. Ligia Harrison, CUSTOM DECORATING CONSULTANT, CONCRETE POURER
[2021-02-14] MEDS: Phenobarbital 32.4 MG Tablet PO ×2 (17:58→21:43)
[2021-02-14] MEDS: Metoprolol Tartrate 25 MG Tablet PO (17:58)
[2021-02-14] MEDS: hydrALAZINE 20 MG/ML Vial 10 MG IV (18:00)
[2021-02-14] MEDS: LORazepam 1 MG Tablet 2 MG PO (20:09)
[2021-02-14] MEDS: Gabapentin 300 MG Capsule PO (21:43)
[2021-02-14] MEDS: Menthol/Lanolin/Calamine/Znox 113 GM Tube 1 APPLIC TOPICAL (21:43)
[2021-02-14] MEDS: Lisinopril 20 MG Tablet PO (21:47)
[2021-02-14] MEDS: 0.9% Saline Lock 10 ML Syringe IV (23:46)
[2021-02-15] VITALS (31 sets, daily range): BP systolic 129–167; BP diastolic 91–125; PULSE 112–145; RESP 18–25; TEMP 36.6–38.1; O2SAT 96–100
[2021-02-15] MEDS: Phenobarbital 32.4 MG Tablet PO ×6 (02:03→21:30)
[2021-02-15] MEDS: LORazepam 1 MG Tablet 2 MG PO ×2 (02:03→04:36)
[2021-02-15] MEDS: Metoprolol Tartrate 5 MG/5 ML Vial IV ×4 (02:36→18:07)
[2021-02-15] MEDS: 0.9% Saline Lock 10 ML Syringe IV ×3 (02:37→06:09)
[2021-02-15 03:39] LABS: Absolute Lymphocyte Count 1.64 X10^3/uL (0.83-4.51); Absolute Neutrophil Count 4.2 X10^3/uL (2.0-7.7); Basophil# 0.01 X10^3/uL; Basophil% 0.2 % (0-1); Eosinophil# 0.01 X10^3/uL; Eosinophils% 0.2 % (0-5); Hematocrit 38.1 % (40-54); Hemoglobin 12.9 g/dL (13.0-16.5); Lymphocyte # 1.64 X10^3/ul (0.83-4.51); Lymphocyte % 26.5 % (19-41); Mean Corp Hgb Conc 33.9 g/dL (32-36); Mean Corpuscular Hgb 34.9 pg (27.0-32.0); Mean Platelet Vol. 12.5 fl (6.2-12.0); Monocyte# 0.31 X10^3/uL; NRBC Flagged by Analyzer 0 % (0-5); Neutrophil # 4.22 X10^3/uL (2.7-7.7); Neutrophil % 67.9 % (47-70); POSITIVE COUNT YES; RBC Distribution Width CV 13.1 % (11.6-14.6); RBC Distribution Width SD 49.4 fl (35.1-43.9); White Blood Count 6.2 K/mm3 (4.4-11.0)
[2021-02-15 03:47] LABS: Differential Indicated SCAN CRITERIA MET; Platelet Count 21 K/mm3 (150-450)
[2021-02-15 03:57] LABS: ALB/GLOB Ratio 0.7 RATIO (0.9-2.4); AST(SGOT) 89 U/L (15-37); Alanine Aminotransfer ALT/SGPT 71 U/L (16-61); Albumin, Serum 3.3 g/dL (3.2-5.0); Alkaline Phosphatase 78 U/L (45-117); Anion Gap 12 (5-15); BUN 10 mg/dL (7-18); BUN/Creat Ratio 13.1 RATIO (10-20); Calcium,Total 8.6 mg/dL (8.5-10.1); Chloride 97 mmol/L (98-107); Creatinine, Serum 0.76 mg/dL (0.70-1.30); EST Glomerular Filtration Rate 113 mL/min (>60); Est Glom Filt Rate - Afr Amer 137 mL/min (>60); Estimated Creatinine Clearance 111.11 ml/min; Globulin 4.5 g/dL (2.2-4.2); Glucose 90 mg/dL (74-106); Potassium 3.9 mmol/L (3.5-5.1); Protein, Total 7.8 g/dL (6.4-8.2); Sodium Level 133 mmol/L (136-145)
[2021-02-15 04:13] LABS: Differential Comment SCANNED; Platelet Estimate MKD DEC (ADEQ)
--- NOTE | 2021-02-15 07:13 | PCM.CON.CC ---
Problem List (1) Alcohol abuse Status: Chronic (2) Thrombocytopenia Status: Chronic (3) Acute alcohol withdrawal Status: Acute (4) Essential (primary) hypertension Status: Chronic (5) Nonrheumatic mitral (valve) prolapse Status: Chronic (6) Nonischemic cardiomyopathy Status: Chronic Reason for Consult Date of Consultation: 02/15/21 Reason for Consultation: Alcohol withdrawal History of Present Illness: The patient is a 56 year old M, with past medical history listed below, who presented to [facility] on 02/14/2021 secondary to alcohol withdrawal. Patient reportedly had his last alcohol on the day prior to presentation and had presented to the emergency department with intoxication. At that time he had refused detox, but after going home he started to become tremulous, diaphoretic and agitated. Patient has had alcohol withdrawal before, but denies any previous seizure activity. No fevers, chills, shortness of breath or other constitutional symptoms were reported. Patient reportedly does have a history of hypertension, but is noncompliant with medications. In the emergency department, patient was hypertensive at 171/104 with a pulse of 154. Patient was very tremulous at that time. Laboratory work-up was relatively unremarkable except for chronic thrombocytopenia at 23, slightly elevated creatinine of 1.07 and a bicarbonate of 18. Liver enzymes were slightly elevated and alcohol level was 0. Tox screen was unremarkable. Patient was given Ativan and phenobarbital, but continued to have significant tremors with CIWA scores greater than 20. For this reason, patient was transferred to the intensive care unit to be monitored for concerns of possible need for Precedex for agitation. Since being in the intensive care unit, patient has done well. Patient has been tachycardic and hypertensive, but otherwise is hemodynamically stable. Patient has received phenobarbital with an additional 3 as needed doses of Ativan, but has been controlled. Patient is not able to provide much additional history at this time. Patient will open his eyes to voice, but is not readily interacting. Past Medical History Past Medical History (Chronic Problems): Chronic Problems (Last Updated 02/14/21 @ 15:[address] Demarco Terrell MD) Alcohol abuse (Chronic) Thrombocytopenia (Chronic) Essential (primary) hypertension (Chronic) Nonrheumatic mitral (valve) prolapse (Chronic) Nonischemic cardiomyopathy (Chronic) Medical History: Medical History (Last Updated 02/14/21 @ 15:[address] Demarco Terrell MD) Essential (primary) hypertension (Chronic) I10 Nonrheumatic mitral (valve) prolapse (Chronic) I34.1 Nonischemic cardiomyopathy (Chronic) I42.8 Alcoholic hepatitis K70.10 Alcoholism /alcohol abuse F10.20 Pancytopenia D61.818 Chewing tobacco use (Inactive) Z72.0 Allergies No Known Allergies Allergy (Verified 02/14/21 14:25) Home Medications: Ambulatory Orders Medication Instructions Recorded NK 07/12/20 Surgical History: Surgical History (Last Reviewed 07/12/20 @ 11:17 by Janet Black) History of left heart catheterization Onset Date: 04/11/19 Z98.890 Surgical History: tonsillectomy Psychiatric History: No pertinent psych hx Lives: With Family Smoking Status: Unknown if ever smoked Alcohol: Heavy Drugs: None - *Family History Paternal Family History: Family History (Last Updated 07/12/20 @ 11:17 by Janet Black) Grandfather Myocardial infarction Uncle Myocardial infarction Mother Cancer Father Cancer History Items: Heart Disease - grandfather and uncle of heart attacks at a young age. Maternal Family History: Family History (Last Updated 07/12/20 @ 11:17 by Janet Black) Grandfather Myocardial infarction Uncle Myocardial infarction Mother Cancer Father Cancer History Items: Cancer - mother had bladder cancer Review of Systems Unable to obtain accurate/complete ROS d/t: Active withdrawal Patient Problems: Active and Suspected Problems (Last Updated 02/14/21 @ 15:[address] Demarco Terrell MD) Acute alcohol withdrawal (Acute) - Physical Exam Vitals/I&O's: Vital Signs Temp Pulse Resp BP Pulse Ox 36.6 C 112 H 22 H 163/116 H 98 02/15/21 05:58 02/15/21 07:00 02/15/21 07:00 02/15/21 07:00 02/15/21 07:00 Oxygen Delivery Method Room Air Weight: 77.7 kg Body Mass Index (BMI) 25.3 Intake and Output for Last 24 Hours 02/13/21 02/14/21 02/15/21 23:59 23:59 23:59 Intake Total 1101.2 / 1101.2 Output Total 0 / 0 Balance 1101.2 / 1101.2 0 / 0 General: Confused, Disoriented, Lethargic, - - Slight tremulous activity with waking HEENT: Atraumatic, PERRLA, EOMI, Normocephalic, - - Scleral injection without icterus Oral: Moist Mucosa, No Gingival or Mucosal Lesions/ Ulcerations Neck: Supple, No JVD, No Nodes, Trachea Midline Lungs: Clear to auscultation, Normal air movement, No rhonchi, No wheeze, No rales Cardiovascular: Normal S1, Normal S2, No murmurs, No rub noted, No Gallop, Tachycardic, - - Sinus tachycardia on telemetry Abdomen: Bowel Sounds Present, Soft, Non Tender, Non-Distended Extremities: No clubbing, No cyanosis, No edema Skin: - - Scattered bruises of various stages of healing Musculoskeletal: No Tenderness to Palpation of Joints or Extremities Lymphatic: No Cervical, Supraclavicular, or Inguinal Adenopathy Neurological: Cranial nerves II-XII grossly intact, Neuro grossly intact, Motor Exam 5/5 strength throughout, - - Positive tremor Psych/Mental Status: Impulsive, Restless Laboratory Results 02/14/21 14:35: WBC 6.1, RBC 3.72 L, Hgb 12.9 L, Hct 38.6 L, MCV 103.8 H, MCH 34.7 H, MCHC 33.4, RDW Std Deviation 51.3 H, RDW Coeff of Philip 13.4, Plt Count 23 L*, MPV 10.1, Immature Gran % (Auto) 0.800, Neut % (Auto) 78.2 H, Lymph % (Auto) 16.4 L, Hendricks % (Auto) 4.4, Eos % (Auto) 0.0, Baso % (Auto) 0.2, Absolute Neuts (auto) 4.8, Absolute Lymphs (auto) 1.00, Nucleated RBC % 0, Diff Path Review March delia, Platelet Estimate MKD 02/14/21 14:35: Sodium 136, Potassium 3.9, Chloride 99, Carbon Dioxide 18.0 L, Anion Gap 19 H, BUN 9, Creatinine 1.07, Estim Creat Clear Calc 78.92, Est GFR (MDRD) Af Amer 93, Est GFR (MDRD) Non-Af 77, BUN/Creatinine Ratio 8.4 L, Glucose 102, Calcium 9.3, Magnesium 1.6, Total Bilirubin 2.20 H, AST 141 H, ALT 97 H, Alkaline Phosphatase 87, Total Protein 8.8 H, Albumin 4.0, Globulin 4.8 H, Albumin/Globulin Ratio 0.8 L 02/14/21 14:35: Ethyl Alcohol < 3.0 02/14/21 14:35: PT 13.0, INR 1.0 02/14/21 14:40: Urine Opiates Screen NEGATIVE, Urine Methadone Screen NEGATIVE, Ur Barbiturates Screen NEGATIVE, Ur Phencyclidine Scrn NEGATIVE, Ur Amphetamines Screen NEGATIVE, U Methamphetamin-MDMA NEGATIVE, U Benzodiazepines Scrn NEGATIVE, Urine Cocaine Screen NEGATIVE, U Cannabinoids Screen NEGATIVE, Ur Drug Screen Comment 02/15/21 03:30: WBC 6.2, RBC 3.70 L, Hgb 12.9 L, Hct 38.1 L, MCV 103.0 H, MCH 34.9 H, MCHC 33.9, RDW Std Deviation 49.4 H, RDW Coeff of Philip 13.1, Plt Count 21 L*, MPV 12.5 H, Immature Gran % (Auto) 0.200, Neut % (Auto) 67.9, Lymph % (Auto) 26.5, Hendricks % (Auto) 5.0, Eos % (Auto) 0.2, Baso % (Auto) 0.2, Absolute Neuts (auto) 4.2, Absolute Lymphs (auto) 1.64, Nucleated RBC % 0, Differential Comment SCANNED, Diff Path Review March delia, Platelet Estimate MKD 02/15/21 03:30: Sodium 133 L, Potassium 3.9, Chloride 97 L, Carbon Dioxide 24.0, Anion Gap 12, BUN 10, Creatinine 0.76, Estim Creat Clear Calc 111.11, Est GFR (MDRD) Af Amer 137, Est GFR (MDRD) Non-Af 113, BUN/Creatinine Ratio 13.1, Glucose 90, Calcium 8.6, Total Bilirubin 1.60 H, AST 89 H, ALT 71 H, Alkaline Phosphatase 78, Total Protein 7.8, Albumin 3.3, Globulin 4.5 H, Albumin/Globulin Ratio 0.7 L Current Medications Calamine/Phenol (Menthol/Lanolin/Calamine/Znox 113 Gm Tube) 1 applic TOPICAL BID JORGE; Protocol Last Admin: 02/14/21 21:43 Dose: 1 applic Documented by: Dicyclomine HCl (Dicyclomine 10 Mg Capsule) 20 mg PO Q6H PRN PRN PRN Reason: abdominal discomfort Folic Acid (Folic Acid 1 Mg Tablet) 1 mg PO DAILY@0800 [facility] Gabapentin (Gabapentin 300 Mg Capsule) 300 mg PO Q8H PRN PRN PRN Reason: moderate to severe anxiety Last Admin: 02/14/21 21:43 Dose: 300 mg Documented by: Hydroxyzine Pamoate (Hydroxyzine Vibha 25 Mg Capsule) 50 mg PO Q4H PRN PRN PRN Reason: mild anxiety Sodium Chloride () 250 mls @ 15 mls/hr IV .[id number] PRN PRN Reason: Saline Flush Lisinopril (Lisinopril 20 Mg Tablet) 20 mg PO DAILY [facility] Last Admin: 02/14/21 21:47 Dose: 20 mg Documented by: Loperamide HCl (Loperamide 2 Mg Capsule) 2 mg PO Q4H PRN PRN PRN Reason: LOOSE STOOLS Lorazepam (Lorazepam 1 Mg Tablet) 2 mg PO Q2H PRN PRN; Protocol PRN Reason: CIWA score > 8 but <15 Last Admin: 02/15/21 04:36 Dose: 2 mg Documented by: Lorazepam (Lorazepam 1 Mg Tablet) 2 mg PO UD PRN; Protocol PRN Reason: CIWA score >/=15. Lorazepam (Lorazepam 2 Mg/Ml Syringe) 2 mg IV Q2H PRN PRN; Protocol PRN Reason: CIWA score > 8 but <15 Last Admin: 02/14/21 23:46 Dose: 2 mg Documented by: Lorazepam (Lorazepam 2 Mg/Ml Syringe) 2 mg IV UD PRN; Protocol PRN Reason: CIWA score >/=15. Metoprolol Tartrate (Metoprolol Tartrate 25 Mg Tablet) 25 mg PO BID [facility] Last Admin: 02/14/21 17:58 Dose: 25 mg Documented by: Multivitamins (Multivitamins,Therapeutic Tablet) 1 tablet PO DAILYCM [facility] Nutritional Formula (Lactose Free) (Ensure Enlive 120 Ml Liquid) 120 ml PO 4X/DAY [facility] Last Admin: 02/14/21 21:55 Dose: Not Given Documented by: Ondansetron HCl (Ondansetron 4 Mg/2 Ml Vial) 4 mg IV Q8H PRN PRN PRN Reason: NAUSEA/VOMITING Ondansetron HCl (Ondansetron 8 Mg Tablet) 8 mg PO Q8H PRN PRN PRN Reason: NAUSEA Phenobarbital (Phenobarbital 32.4 Mg Tablet) 97.2 mg PO Q4H JORGE; Taper Stop: 02/19/21 01:59 Last Admin: 02/15/21 05:47 Dose: 97.2 mg Documented by: Sodium Chloride (0.9% Saline Lock 10 Ml Syringe) 10 - 40 ml IV UD PRN PRN Reason: SALINE FLUSH Last Admin: 02/15/21 06:09 Dose: 10 ml Documented by: Thiamine HCl (Thiamine Hydrochloride 100 Mg Tablet) 100 mg PO DAILYCM [facility] Trazodone HCl (Trazodone 100 Mg Tablet) 100 mg PO QHS PRN PRN PRN Reason: INSOMNIA Assessment/Plan Active and Suspected Problems (Last Updated 02/14/21 @ 15:[address] Demarco Terrell MD) Acute alcohol withdrawal (Acute) RECOMMENDATIONS: 1. Alteration of antihypertensives as ordered 2. Continue CIWA protocol with phenobarbital 3. Precedex may not be necessary moving forward 4. Okay to transfer from the intensive care unit 5. If remains hemodynamically stable without Precedex need, will set off from a critical care perspective IMPRESSIONS: 1. Acute alcohol withdrawal Patient has required some as needed Ativan in addition to his phenobarbital. However, patient appears to be relatively stable at this time. Defer to the hospitalist, but patient can likely be transferred from the intensive care unit. It does not appear that Precedex will be required at this time. Peak symptomatology can happen at 48 hours though. 2. Severe thrombocytopenia secondary to alcoholism with transaminitis No active bleeding at this time. No indication for transfusion. We will continue to monitor. 3. Hypertensive urgency Unclear etiology. Patient is going through active withdrawal, which will increase blood pressure. Patient may also have an element of rebound hypertension, but baseline antihypertensives are unclear at this time. Patient does not have other illicit drug use such as cocaine that would prohibit the use of beta-blockers. However, avoidance of beta-blockers may be prudent as patient has had issues with compliance in the past and could have an element of rebound hypertension with abrupt cessation. 4. History of nonischemic cardiomyopathy/poor compliance Complicates care, management, recovery and prognosis. Patient does not have any obvious symptomatology of decompensated congestive heart failure at this time. EF was 40% in April 2019 indicating chronic systolic congestive heart failure. Inpatient E&M: 43019 Init Hosp L2
[2021-02-15] MEDS: Multivitamins,Therapeutic Tablet 1 TABLET PO (08:22)
[2021-02-15] MEDS: Thiamine Hydrochloride 100 MG Tablet PO (08:23)
[2021-02-15] MEDS: Folic Acid 1 MG Tablet PO (08:23)
[2021-02-15] MEDS: amLODIPine 5 MG Tablet PO (09:57)
[2021-02-15] MEDS: Lisinopril 10 MG Tablet PO (09:57)
[2021-02-15] MEDS: Metoprolol Tartrate 25 MG Tablet PO ×2 (09:57→21:33)
[2021-02-15] MEDS: Menthol/Lanolin/Calamine/Znox 113 GM Tube 1 APPLIC TOPICAL ×2 (09:57→21:34)
--- NOTE | 2021-02-15 11:23 | PCM.PN.HOSP ---
Patient Problems: Active and Suspected Problems (Last Updated 02/14/21 @ 15:[address] Demarco Terrell MD) Acute alcohol withdrawal (Acute) Subjective: Groggy. Has required some lorazepam dosages. Vitals/I&O's: Vital Signs Temp Pulse Resp BP Pulse Ox 36.7 C 120 H 20 H 136/104 H 97 02/15/21 08:00 02/15/21 11:00 02/15/21 11:00 02/15/21 11:00 02/15/21 11:00 Oxygen Delivery Method Room Air Weight: 77.7 kg Body Mass Index (BMI) 25.3 Intake and Output for Last 24 Hours 02/13/21 02/14/21 02/15/21 23:59 23:59 23:59 Intake Total 1101.2 / 1101.2 Output Total 0 / 0 Balance 1101.2 / 1101.2 0 / 0 General: Oriented x3, - - groggy HEENT: Atraumatic, Normocephalic Oral: Moist Mucosa, No Gingival or Mucosal Lesions/ Ulcerations Neck: No Nodes, Thyroid Normal Size and Texture Lungs: Clear to auscultation, Normal air movement, No rhonchi, No wheeze Cardiovascular: Regular rate, Regular Rhythm, Normal S1, Normal S2, No murmurs Abdomen: Bowel Sounds Present, Soft, Non Tender, Non-Distended Extremities: No edema, No Calf Tenderness Skin: - - brusing. scattered petechiae Musculoskeletal: Cachexia, Muscle Wasting Psych/Mental Status: Normal Affect, Appropriate Laboratory Results 02/14/21 14:35: WBC 6.1, RBC 3.72 L, Hgb 12.9 L, Hct 38.6 L, MCV 103.8 H, MCH 34.7 H, MCHC 33.4, RDW Std Deviation 51.3 H, RDW Coeff of Philip 13.4, Plt Count 23 L*, MPV 10.1, Immature Gran % (Auto) 0.800, Neut % (Auto) 78.2 H, Lymph % (Auto) 16.4 L, Twiggs % (Auto) 4.4, Eos % (Auto) 0.0, Baso % (Auto) 0.2, Absolute Neuts (auto) 4.8, Absolute Lymphs (auto) 1.00, Nucleated RBC % 0, Diff Path Review March foll, Platelet Estimate D 02/14/21 14:35: Sodium 136, Potassium 3.9, Chloride 99, Carbon Dioxide 18.0 L, Anion Gap 19 H, BUN 9, Creatinine 1.07, Estim Creat Clear Calc 78.92, Est GFR (MDRD) Af Amer 93, Est GFR (MDRD) Non-Af 77, BUN/Creatinine Ratio 8.4 L, Glucose 102, Calcium 9.3, Magnesium 1.6, Total Bilirubin 2.20 H, AST 141 H, ALT 97 H, Alkaline Phosphatase 87, Total Protein 8.8 H, Albumin 4.0, Globulin 4.8 H, Albumin/Globulin Ratio 0.8 L 02/14/21 14:35: Ethyl Alcohol < 3.0 02/14/21 14:35: PT 13.0, INR 1.0 02/14/21 14:40: Urine Opiates Screen NEGATIVE, Urine Methadone Screen NEGATIVE, Ur Barbiturates Screen NEGATIVE, Ur Phencyclidine Scrn NEGATIVE, Ur Amphetamines Screen NEGATIVE, U Methamphetamin-MDMA NEGATIVE, U Benzodiazepines Scrn NEGATIVE, Urine Cocaine Screen NEGATIVE, U Cannabinoids Screen NEGATIVE, Ur Drug Screen Comment 02/15/21 03:30: WBC 6.2, RBC 3.70 L, Hgb 12.9 L, Hct 38.1 L, MCV 103.0 H, MCH 34.9 H, MCHC 33.9, RDW Std Deviation 49.4 H, RDW Coeff of Philip 13.1, Plt Count 21 L*, MPV 12.5 H, Immature Gran % (Auto) 0.200, Neut % (Auto) 67.9, Lymph % (Auto) 26.5, Twiggs % (Auto) 5.0, Eos % (Auto) 0.2, Baso % (Auto) 0.2, Absolute Neuts (auto) 4.2, Absolute Lymphs (auto) 1.64, Nucleated RBC % 0, Differential Comment SCANNED, Diff Path Review March delia, Platelet Estimate D 02/15/21 03:30: Sodium 133 L, Potassium 3.9, Chloride 97 L, Carbon Dioxide 24.0, Anion Gap 12, BUN 10, Creatinine 0.76, Estim Creat Clear Calc 111.11, Est GFR (MDRD) Af Amer 137, Est GFR (MDRD) Non-Af 113, BUN/Creatinine Ratio 13.1, Glucose 90, Calcium 8.6, Total Bilirubin 1.60 H, AST 89 H, ALT 71 H, Alkaline Phosphatase 78, Total Protein 7.8, Albumin 3.3, Globulin 4.5 H, Albumin/Globulin Ratio 0.7 L Current Medications Amlodipine Besylate (Amlodipine 5 Mg Tablet) 5 mg PO DAILY [facility] Last Admin: 02/15/21 09:57 Dose: 5 mg Documented by: Calamine/Phenol (Menthol/Lanolin/Calamine/Znox 113 Gm Tube) 1 applic TOPICAL BID [facility]; Protocol Last Admin: 02/15/21 09:57 Dose: 1 applic Documented by: Dicyclomine HCl (Dicyclomine 10 Mg Capsule) 20 mg PO Q6H PRN PRN PRN Reason: abdominal discomfort Folic Acid (Folic Acid 1 Mg Tablet) 1 mg PO DAILY@0800 [facility] Last Admin: 02/15/21 08:23 Dose: 1 mg Documented by: Gabapentin (Gabapentin 300 Mg Capsule) 300 mg PO Q8H PRN PRN PRN Reason: moderate to severe anxiety Last Admin: 02/14/21 21:43 Dose: 300 mg Documented by: Hydroxyzine Pamoate (Hydroxyzine Vibha 25 Mg Capsule) 50 mg PO Q4H PRN PRN PRN Reason: mild anxiety Sodium Chloride () 250 mls @ 15 mls/hr IV .[id number] PRN PRN Reason: Saline Flush Lisinopril (Lisinopril 10 Mg Tablet) 10 mg PO DAILY [facility] Last Admin: 02/15/21 09:57 Dose: 10 mg Documented by: Loperamide HCl (Loperamide 2 Mg Capsule) 2 mg PO Q4H PRN PRN PRN Reason: LOOSE STOOLS Lorazepam (Lorazepam 1 Mg Tablet) 2 mg PO Q2H PRN PRN; Protocol PRN Reason: CIWA score > 8 but <15 Last Admin: 02/15/21 04:36 Dose: 2 mg Documented by: Lorazepam (Lorazepam 1 Mg Tablet) 2 mg PO UD PRN; Protocol PRN Reason: CIWA score >/=15. Lorazepam (Lorazepam 2 Mg/Ml Syringe) 2 mg IV Q2H PRN PRN; Protocol PRN Reason: CIWA score > 8 but <15 Last Admin: 02/14/21 23:46 Dose: 2 mg Documented by: Lorazepam (Lorazepam 2 Mg/Ml Syringe) 2 mg IV UD PRN; Protocol PRN Reason: CIWA score >/=15. Metoprolol Tartrate (Metoprolol Tartrate 25 Mg Tablet) 25 mg PO BID [facility] Last Admin: 02/15/21 09:57 Dose: 25 mg Documented by: Multivit[facility] ([facility]) [facility] Last Admin: 02/15/21 08:22 Dose: 1 tablet Documented by: Ondansetron HCl (Ondansetron 4 Mg/2 Ml Vial) 4 mg IV Q8H PRN PRN PRN Reason: NAUSEA/VOMITING Ondansetron HCl (Ondansetron 8 Mg Tablet) 8 mg PO Q8H PRN PRN PRN Reason: NAUSEA Phenobarbital (Phenobarbital 32.4 Mg Tablet) 97.2 mg PO Q4H [facility]; Taper Stop: 02/19/21 01:59 Last Admin: 02/15/21 10:00 Dose: 97.2 mg Documented by: Sodium Chloride (0.9% Saline Lock 10 Ml Syringe) 10 - 40 ml IV UD PRN PRN Reason: SALINE FLUSH Last Admin: 02/15/21 06:09 Dose: 10 ml Documented by: Thiamine HCl (Thiamine Hydrochloride 100 Mg Tablet) [facility] Last Admin: 02/15/21 08:23 Dose: 100 mg Documented by: Trazodone HCl (Trazodone 100 Mg Tablet) 100 mg PO QHS PRN PRN PRN Reason: INSOMNIA STROKE Vital Signs/Narrative: Vital Signs Temp Pulse Resp BP Pulse Ox 02/15/21 11:00 120 H 20 H 136/104 H 97 02/15/21 10:00 133 H 18 160/125 H 97 02/15/21 09:57 132 H 02/15/21 09:00 129 H 23 H 147/116 H 97 02/15/21 08:00 36.7 C 120 H 25 H 145/103 H 98 Medical Necessity - Tobacco Use Smoking Status: Unknown if ever smoked Assessment/Plan All Active Problems (Last Updated 02/14/21 @ 15:[address] Deamrco Terrell MD) Acute alcohol withdrawal (Acute) 1. acute alcohol withdrawal ongoing no need for a Precedex gtt continue phenobarbital taper, PRN lorazepam and thiamine and folate 2. cirrhosis MELD 8 not decompensated at this time. avoid potentiating medications follow up with x-plant team if can remain sober 3. thrombocytopenia 2/2 cirrhosis monitor no need for TF at this time Will TF out of ICU, but transfer to PCU given anticipated increased level of care for this patient at present. Inpatient E&M: 95429 Subs Hosp L2
--- NOTE | 2021-02-15 16:58 | EKG12_ITS ---
Test Reason : RHTYHM Blood Pressure : / mmHG Vent. Rate : 138 BPM Atrial Rate : 138 BPM P-R Int : 140 ms QRS Dur : 088 ms QT Int : 274 ms P-R-T Axes : 003 006 018 degrees QTc Int : 415 ms Sinus tachycardia Low Voltage QRS (Limb Leads) Confirmed by FLORESITA DALY, ISABELLA ([id number]), technical writer and editor KERI CARPENTER ([id number]) on 02/19/2021 1:18:27 PM Referred By: TIMOTHY Confirmed By:ISABELLA CANAS MD
[2021-02-16] VITALS (33 sets, daily range): BP systolic 91–157; BP diastolic 55–122; PULSE 86–128; RESP 16–23; TEMP 36.4–37.3; O2SAT 89–100
[2021-02-16] MEDS: LORazepam 2 MG/ML Syringe IV (00:21)
[2021-02-16] MEDS: Metoprolol Tartrate 5 MG/5 ML Vial IV ×2 (01:23→08:24)
[2021-02-16] MEDS: Phenobarbital 32.4 MG Tablet PO ×3 (03:07→21:44)
[2021-02-16 05:12] LABS: Absolute Lymphocyte Count 1.66 X10^3/uL (0.83-4.51); Absolute Neutrophil Count 4.3 X10^3/uL (2.0-7.7); Basophil# 0.01 X10^3/uL; Basophil% 0.2 % (0-1); Eosinophil# 0.01 X10^3/uL; Eosinophils% 0.2 % (0-5); Hematocrit 36.4 % (40-54); Hemoglobin 12.1 g/dL (13.0-16.5); Lymphocyte # 1.66 X10^3/ul (0.83-4.51); Lymphocyte % 25.7 % (19-41); Mean Corp Hgb Conc 33.2 g/dL (32-36); Mean Corpuscular Hgb 34.8 pg (27.0-32.0); Mean Corpuscular Volume 104.6 fL (80-94); Mean Platelet Vol. 10.6 fl (6.2-12.0); Monocyte# 0.46 X10^3/uL; Monocyte% 7.1 % (0-10); NRBC Flagged by Analyzer 0 % (0-5); Neutrophil % 66.3 % (47-70); POSITIVE COUNT YES; RBC Distribution Width SD 50.3 fl (35.1-43.9); Red Blood Count 3.48 M/mm3 (4.6-6.2); White Blood Count 6.5 K/mm3 (4.4-11.0)
[2021-02-16 05:19] LABS: Differential Indicated SCAN CRITERIA MET
[2021-02-16 05:20] LABS: Platelet Count 28 K/mm3 (150-450)
--- NOTE | 2021-02-16 05:35 | NURSING ---
Platelet count of 28 called by lab, results were improved from previous day.
[2021-02-16 06:16] LABS: ALB/GLOB Ratio 0.7 RATIO (0.9-2.4); AST(SGOT) 65 U/L (15-37); Alanine Aminotransfer ALT/SGPT 58 U/L (16-61); Albumin, Serum 3.2 g/dL (3.2-5.0); Alkaline Phosphatase 80 U/L (45-117); Anion Gap 12 (5-15); BUN 19 mg/dL (7-18); BUN/Creat Ratio 18.4 RATIO (10-20); Calcium,Total 8.9 mg/dL (8.5-10.1); Chloride 98 mmol/L (98-107); Creatinine, Serum 1.03 mg/dL (0.70-1.30); EST Glomerular Filtration Rate 80 mL/min (>60); Est Glom Filt Rate - Afr Amer 97 mL/min (>60); Estimated Creatinine Clearance 81.99 ml/min; Globulin 4.4 g/dL (2.2-4.2); Glucose 108 mg/dL (74-106); Potassium 3.4 mmol/L (3.5-5.1); Protein, Total 7.6 g/dL (6.4-8.2); Sodium Level 133 mmol/L (136-145)
[2021-02-16 06:30] LABS: Differential Comment SCANNED
[2021-02-16 06:31] LABS: Anisocytosis 1+; Macrocytosis 1+; Platelet Estimate MKD DEC (ADEQ)
[2021-02-16] MEDS: 0.9% Saline Lock 10 ML Syringe IV ×2 (08:24→10:33)
--- NOTE | 2021-02-16 08:31 | NURSING ---
report called to ALBINO Mccormick on ICU for transfer.
--- NOTE | 2021-02-16 09:40 | PCM.PN.INT ---
Subjective: Patient transferred out of the intensive care unit yesterday. However, overnight patient has become more tremulous and hallucinating. Hospitalist is transferring patient back to the intensive care unit for Precedex therapy. Patient did receive phenobarb this morning and last dose of Ativan was at 12:30 AM. Patient is currently sleeping and unable to provide any additional information. General: Confused, Disoriented, Lethargic, - - Opens eyes to voice, but not interactive HEENT: Atraumatic, PERRLA, EOMI, Normocephalic, - - Scleral injection without icterus Oral: Moist Mucosa, No Gingival or Mucosal Lesions/ Ulcerations Neck: Supple, No JVD, No Nodes, Trachea Midline Lungs: Clear to auscultation, Normal air movement, No rhonchi, No wheeze, No rales Cardiovascular: Normal S1, Normal S2, No murmurs, No rub noted, No Gallop, Tachycardic Abdomen: Bowel Sounds Present, Soft, Non Tender, Non-Distended Extremities: No clubbing, No cyanosis, No edema Skin: - - No change from previous Musculoskeletal: No Tenderness to Palpation of Joints or Extremities Lymphatic: No Cervical, Supraclavicular, or Inguinal Adenopathy Neurological: Cranial nerves II-XII grossly intact, Neuro grossly intact, Motor Exam 5/5 strength throughout, - - Intentional tremor noted Psych/Mental Status: Flat Affect Vital Signs Temp Pulse Resp BP Pulse Ox 36.4 C L 115 H 18 147/110 H 100 02/16/21 08:10 02/16/21 09:15 02/16/21 08:10 02/16/21 08:24 02/16/21 08:10 Oxygen Delivery Method Room Air Weight: 77.7 kg Body Mass Index (BMI) 25.3 Intake and Output for Last 24 Hours 02/14/21 02/15/21 02/16/21 23:59 23:59 23:59 Intake Total 1101.2 / 1101.2 240 / 240 Output Total 0 / 0 Balance 1101.2 / 1101.2 0 / 120 240 / 240 Labs (Last 48 Hours) 02/14/21 02/14/21 02/14/21 14:35 14:35 14:35 WBC 6.1 RBC 3.72 L Hgb 12.9 L Hct 38.6 L MCV 103.8 H MCH 34.7 H MCHC 33.4 RDW Std Deviation 51.3 H RDW Coeff of Philip 13.4 Plt Count 23 L* MPV 10.1 Immature Gran % (Auto) 0.800 Neut % (Auto) 78.2 H Lymph % (Auto) 16.4 L [place] % (Auto) 4.4 Eos % (Auto) 0.0 Baso % (Auto) 0.2 Absolute Neuts (auto) 4.8 Absolute Lymphs (auto) 1.00 Nucleated RBC % 0 Differential Comment Diff Path Review May foll Platelet Estimate MKD DEC Anisocytosis Macrocytosis PT INR Sodium 136 Potassium 3.9 Chloride 99 Carbon Dioxide 18.0 L Anion Gap 19 H BUN 9 Creatinine 1.07 Estim Creat Clear Calc 78.92 Est GFR (MDRD) Af Amer 93 Est GFR (MDRD) Non-Af 77 BUN/Creatinine Ratio 8.4 L Glucose 102 Calcium 9.3 Magnesium 1.6 Total Bilirubin 2.20 H AST 141 H ALT 97 H Alkaline Phosphatase 87 Total Protein 8.8 H Albumin 4.0 Globulin 4.8 H Albumin/Globulin Ratio 0.8 L Urine Opiates Screen Urine Methadone Screen Ur Barbiturates Screen Ur Phencyclidine Scrn Ur Amphetamines Screen U Methamphetamin-MDMA U Benzodiazepines Scrn Urine Cocaine Screen U Cannabinoids Screen Ur Drug Screen Comment Ethyl Alcohol < 3.0 02/14/21 02/14/21 02/15/21 14:35 14:40 03:30 WBC 6.2 RBC 3.70 L Hgb 12.9 L Hct 38.1 L MCV 103.0 H MCH 34.9 H MCHC 33.9 RDW Std Deviation 49.4 H RDW Coeff of Philip 13.1 Plt Count 21 L* MPV 12.5 H Immature Gran % (Auto) 0.200 Neut % (Auto) 67.9 Lymph % (Auto) 26.5 [place] % (Auto) 5.0 Eos % (Auto) 0.2 Baso % (Auto) 0.2 Absolute Neuts (auto) 4.2 Absolute Lymphs (auto) 1.64 Nucleated RBC % 0 Differential Comment SCANNED Diff Path Review May foll Platelet Estimate MKD DEC Anisocytosis Macrocytosis PT 13.0 INR 1.0 Sodium Potassium Chloride Carbon Dioxide Anion Gap BUN Creatinine Estim Creat Clear Calc Est GFR (MDRD) Af Amer Est GFR (MDRD) Non-Af BUN/Creatinine Ratio Glucose Calcium Magnesium Total Bilirubin AST ALT Alkaline Phosphatase Total Protein Albumin Globulin Albumin/Globulin Ratio Urine Opiates Screen NEGATIVE Urine Methadone Screen NEGATIVE Ur Barbiturates Screen NEGATIVE Ur Phencyclidine Scrn NEGATIVE Ur Amphetamines Screen NEGATIVE U Methamphetamin-MDMA NEGATIVE U Benzodiazepines Scrn NEGATIVE Urine Cocaine Screen NEGATIVE U Cannabinoids Screen NEGATIVE Ur Drug Screen Comment Ethyl Alcohol 02/15/21 02/16/21 02/16/21 03:30 05:03 05:03 WBC 6.5 RBC 3.48 L Hgb 12.1 L Hct 36.4 L MCV 104.6 H MCH 34.8 H MCHC 33.2 RDW Std Deviation 50.3 H RDW Coeff of Philip 13.0 Plt Count 28 L* MPV 10.6 Immature Gran % (Auto) 0.500 Neut % (Auto) 66.3 Lymph % (Auto) 25.7 [place] % (Auto) 7.1 Eos % (Auto) 0.2 Baso % (Auto) 0.2 Absolute Neuts (auto) 4.3 Absolute Lymphs (auto) 1.66 Nucleated RBC % 0 Differential Comment SCANNED Diff Path Review May foll Platelet Estimate MKD DEC Anisocytosis 1+ Macrocytosis 1+ PT INR Sodium 133 L 133 L Potassium 3.9 3.4 L Chloride 97 L 98 Carbon Dioxide 24.0 23.0 Anion Gap 12 12 BUN 10 19 H Creatinine 0.76 1.03 Estim Creat Clear Calc 111.11 81.99 Est GFR (MDRD) Af Amer 137 97 Est GFR (MDRD) Non-Af 113 80 BUN/Creatinine Ratio 13.1 18.4 Glucose 90 108 H Calcium 8.6 8.9 Magnesium Total Bilirubin 1.60 H 1.20 H AST 89 H 65 H ALT 71 H 58 Alkaline Phosphatase 78 80 Total Protein 7.8 7.6 Albumin 3.3 3.2 Globulin 4.5 H 4.4 H Albumin/Globulin Ratio 0.7 L 0.7 L Urine Opiates Screen Urine Methadone Screen Ur Barbiturates Screen Ur Phencyclidine Scrn Ur Amphetamines Screen U Methamphetamin-MDMA U Benzodiazepines Scrn Urine Cocaine Screen U Cannabinoids Screen Ur Drug Screen Comment Ethyl Alcohol Medical Necessity - Tobacco Use Smoking Status: Unknown if ever smoked Assessment/Plan All Active Problems (Last Updated 02/14/21 @ 15:[address] Demarco Terrell MD) Acute alcohol withdrawal (Acute) RECOMMENDATIONS: 1. Continue antihypertensives 2. Continue CIWA protocol with phenobarbital 3. Initiate Precedex on arrival to the intensive care unit 4. Continue phenobarbital IMPRESSIONS: 1. Acute alcohol withdrawal Patient has required some as needed Ativan in addition to his phenobarbital. However, patient appears to be relatively stable at this time. Patient with increased symptomatology overnight. Patient will be transferred to the intensive care unit and initiated on Precedex therapy. Continue with phenobarbital to facilitate discontinuation of Precedex. 2. Severe thrombocytopenia secondary to alcoholism with transaminitis No active bleeding at this time. No indication for transfusion. We will continue to monitor. 3. Hypertensive urgency Unclear etiology. Patient is going through active withdrawal, which will increase blood pressure. Patient may also have an element of rebound hypertension, but baseline antihypertensives are unclear at this time. Patient does not have other illicit drug use such as cocaine that would prohibit the use of beta-blockers. However, avoidance of beta-blockers may be prudent as patient has had issues with compliance in the past and could have an element of rebound hypertension with abrupt cessation. 4. History of nonischemic cardiomyopathy/poor compliance Complicates care, management, recovery and prognosis. Patient does not have any obvious symptomatology of decompensated congestive heart failure at this time. EF was 40% in April 2019 indicating chronic systolic congestive heart failure. Inpatient E&M: [id number] [facility] Hosp L3
--- NOTE | 2021-02-16 09:55 | NURSING ---
message left with patients sister to update on POC.
--- NOTE | 2021-02-16 10:00 | PCM.PN.HOSP ---
Patient Problems: Active and Suspected Problems (Last Updated 02/14/21 @ 15:[address] Demarco Terrell MD) Acute alcohol withdrawal (Acute) Subjective: Tachycardic throughout the day yesterday and until today. Patient more confused. Nursing noted patient hallucinating. Vitals/I&O's: Vital Signs Temp Pulse Resp BP Pulse Ox 36.4 C L 115 H 18 147/110 H 100 02/16/21 08:10 02/16/21 09:15 02/16/21 08:10 02/16/21 08:24 02/16/21 08:10 Oxygen Delivery Method Room Air Weight: 77.7 kg Body Mass Index (BMI) 25.3 Intake and Output for Last 24 Hours 02/14/21 02/15/21 02/16/21 23:59 23:59 23:59 Intake Total 1101.2 / 1101.2 240 / 240 Output Total 0 / 0 Balance 1101.2 / 1101.2 0 / 120 240 / 240 General: - - Confused. She is alert and oriented to self whereas yesterday patient was alert and oriented x3. HEENT: Atraumatic, Normocephalic Neck: No Nodes, Thyroid Normal Size and Texture Lungs: Clear to auscultation, Normal air movement, No rhonchi, No wheeze Cardiovascular: Regular rate, Regular Rhythm, Normal S1, Normal S2 Abdomen: Bowel Sounds Present, Soft, Non Tender, Non-Distended Extremities: No edema, No Calf Tenderness Musculoskeletal: Cachexia, Muscle Wasting Laboratory Results 02/16/21 05:03: WBC 6.5, RBC 3.48 L, Hgb 12.1 L, Hct 36.4 L, MCV 104.6 H, MCH 34.8 H, MCHC 33.2, RDW Std Deviation 50.3 H, RDW Coeff of Philip 13.0, Plt Count 28 L*, MPV 10.6, Immature Gran % (Auto) 0.500, Neut % (Auto) 66.3, Lymph % (Auto) 25.7, [place] % (Auto) 7.1, Eos % (Auto) 0.2, Baso % (Auto) 0.2, Absolute Neuts (auto) 4.3, Absolute Lymphs (auto) 1.66, Nucleated RBC % 0, Differential Comment SCANNED, Diff Path Review March, Platelet Estimate MKD DEC, Anisocytosis 1+, Macrocytosis 1+ 02/16/21 05:03: Sodium 133 L, Potassium 3.4 L, Chloride 98, Carbon Dioxide 23.0, Anion Gap 12, BUN 19 H, Creatinine 1.03, Estim Creat Clear Calc 81.99, Est GFR (MDRD) Af Amer 97, Est GFR (MDRD) Non-Af 80, BUN/Creatinine Ratio 18.4, Glucose 108 H, Calcium 8.9, Total Bilirubin 1.20 H, AST 65 H, ALT 58, Alkaline Phosphatase 80, Total Protein 7.6, Albumin 3.2, Globulin 4.4 H, Albumin/Globulin Ratio 0.7 L Current Medications Amlodipine Besylate (Amlodipine 5 Mg Tablet) 5 mg PO DAILY [facility] Last Admin: 02/15/21 09:57 Dose: 5 mg Documented by: Calamine/Phenol (Menthol/Lanolin/Calamine/Znox 113 Gm Tube) 1 applic TOPICAL BID [facility]; Protocol Last Admin: 02/15/21 21:34 Dose: 1 applic Documented by: Dicyclomine HCl (Dicyclomine 10 Mg Capsule) 20 mg PO Q6H PRN PRN PRN Reason: abdominal discomfort Folic Acid (Folic Acid 1 Mg Tablet) 1 mg PO DAILY@0800 [facility] Last Admin: 02/16/21 09:21 Dose: Not Given Documented by: Gabapentin (Gabapentin 300 Mg Capsule) 300 mg PO Q8H PRN PRN PRN Reason: moderate to severe anxiety Last Admin: 02/14/21 21:43 Dose: 300 mg Documented by: Hydroxyzine Pamoate (Hydroxyzine Vibha 25 Mg Capsule) 50 mg PO Q4H PRN PRN PRN Reason: mild anxiety Sodium Chloride () 250 mls @ 15 mls/hr IV .[id number] PRN PRN Reason: Saline Flush Lisinopril (Lisinopril 10 Mg Tablet) 10 mg PO DAILY [facility] Last Admin: 02/15/21 09:57 Dose: 10 mg Documented by: Loperamide HCl (Loperamide 2 Mg Capsule) 2 mg PO Q4H PRN PRN PRN Reason: LOOSE STOOLS Lorazepam (Lorazepam 1 Mg Tablet) 2 mg PO Q2H PRN PRN; Protocol PRN Reason: CIWA score > 8 but <15 Last Admin: 02/15/21 04:36 Dose: 2 mg Documented by: Lorazepam (Lorazepam 1 Mg Tablet) 2 mg PO UD PRN; Protocol PRN Reason: CIWA score >/=15. Lorazepam (Lorazepam 2 Mg/Ml Syringe) 2 mg IV Q2H PRN PRN; Protocol PRN Reason: CIWA score > 8 but <15 Last Admin: 02/14/21 23:46 Dose: 2 mg Documented by: Lorazepam (Lorazepam 2 Mg/Ml Syringe) 2 mg IV UD PRN; Protocol PRN Reason: CIWA score >/=15. Last Admin: 02/16/21 00:21 Dose: 2 mg Documented by: Metoprolol Tartrate (Metoprolol Tartrate 25 Mg Tablet) 25 mg PO BID [facility] Last Admin: 02/15/21 21:33 Dose: 25 mg Documented by: Metoprolol Tartrate (Metoprolol Tartrate 5 Mg/5 Ml Vial) 5 mg IV Q6H PRN PRN PRN Reason: Tachycardia Last Admin: 02/16/21 08:24 Dose: 5 mg Documented by: Multivitamins (Multivitamins,Therapeutic Tablet) [facility] Last Admin: 02/16/21 09:21 Dose: Not Given Documented by: Ondansetron HCl (Ondansetron 4 Mg/2 Ml Vial) 4 mg IV Q8H PRN PRN PRN Reason: NAUSEA/VOMITING Ondansetron HCl (Ondansetron 8 Mg Tablet) 8 mg PO Q8H PRN PRN PRN Reason: NAUSEA Phenobarbital (Phenobarbital 32.4 Mg Tablet) 64.8 mg PO Q4H [facility]; Taper Stop: 02/19/21 01:59 Last Admin: 02/16/21 06:36 Dose: 64.8 mg Documented by: Sodium Chloride (0.9% Saline Lock 10 Ml Syringe) 10 - 40 ml IV UD PRN PRN Reason: SALINE FLUSH Last Admin: 02/16/21 08:24 Dose: 10 ml Documented by: Thiamine HCl (Thiamine Hydrochloride 100 Mg Tablet) [facility] Last Admin: 02/16/21 09:22 Dose: Not Given Documented by: Trazodone HCl (Trazodone 100 Mg Tablet) 100 mg PO QHS PRN PRN PRN Reason: INSOMNIA STROKE Vital Signs/Narrative: Vital Signs Temp Pulse Resp BP Pulse Ox 02/16/21 09:15 115 H 02/16/21 08:24 125 H 147/110 H 02/16/21 08:10 36.4 C L 125 H 18 147/110 H 100 02/16/21 07:45 124 H 02/16/21 07:20 95 Medical Necessity - Tobacco Use Smoking Status: Unknown if ever smoked Assessment/Plan All Active Problems (Last Updated 02/14/21 @ 15:[address] Demarco Terrell MD) Acute alcohol withdrawal (Acute) 56-year-old white male presents with acute alcohol withdrawal. Initially started on phenobarbital and as needed lorazepam but his condition has declined during this hospitalization and is now on a Precedex drip. 1. acute alcohol withdrawal Worse today Initiates Precedex gtt and continue phenobarbital taper, PRN lorazepam and thiamine and folate 2. cirrhosis MELD 8 not decompensated at this time. avoid potentiating medications follow up with x-plant team as outpatient if can remain sober 3. thrombocytopenia 2/2 cirrhosis monitor no need for TF at this time Transferred back to the ICU for initiation of Precedex drip which cannot be done on progressive care unit. Discussed with Dr. Blackburn Inpatient E&M: [id number] Subs Hosp L2
[2021-02-16] MEDS: Menthol/Lanolin/Calamine/Znox 113 GM Tube 1 APPLIC TOPICAL ×2 (11:25→21:46)
[2021-02-16] MEDS: 0.9% Normal Saline 1,000 ML 150 ML IV ×2 (13:33→20:17)
[2021-02-16] MEDS: Metoprolol Tartrate 25 MG Tablet PO (21:38)
--- NOTE | 2021-02-16 21:40 | NURSING ---
Pt had previously refused to take potassium supplement 02/16 dayshift and the one time dose was charted against as such. Pt willing and able to take pills at this time. Pt given kcl 40 meq po per orders at this time, unable to chart on mar to reflect as med given.
[2021-02-17] VITALS (21 sets, daily range): BP systolic 128–167; BP diastolic 84–118; PULSE 85–132; RESP 13–20; TEMP 36.1–37.6; O2SAT 93–99
[2021-02-17] MEDS: Phenobarbital 32.4 MG Tablet PO ×4 (01:35→20:30)
[2021-02-17] MEDS: 0.9% Normal Saline 1,000 ML 150 ML IV ×4 (02:15→22:10)
[2021-02-17] MEDS: 0.9% Saline Lock 10 ML Syringe IV (03:49)
[2021-02-17 03:52] LABS: Absolute Lymphocyte Count 1.07 X10^3/uL (0.83-4.51); Absolute Neutrophil Count 3.6 X10^3/uL (2.0-7.7); Eosinophil# 0.03 X10^3/uL; Eosinophils% 0.6 % (0-5); Hematocrit 31.1 % (40-54); Hemoglobin 10.4 g/dL (13.0-16.5); Lymphocyte # 1.07 X10^3/ul (0.83-4.51); Lymphocyte % 20.5 % (19-41); Mean Corp Hgb Conc 33.4 g/dL (32-36); Mean Corpuscular Hgb 35.3 pg (27.0-32.0); Mean Corpuscular Volume 105.4 fL (80-94); Mean Platelet Vol. 10.8 fl (6.2-12.0); Monocyte# 0.52 X10^3/uL; NRBC Flagged by Analyzer 0 % (0-5); Neutrophil # 3.57 X10^3/uL (2.7-7.7); Neutrophil % 68.5 % (47-70); POSITIVE COUNT YES; RBC Distribution Width SD 50.4 fl (35.1-43.9); Red Blood Count 2.95 M/mm3 (4.6-6.2); White Blood Count 5.2 K/mm3 (4.4-11.0)
[2021-02-17 03:53] LABS: Differential Indicated SCAN CRITERIA MET; Platelet Count 32 K/mm3 (150-450)
[2021-02-17 04:43] LABS: ALB/GLOB Ratio 0.6 RATIO (0.9-2.4); AST(SGOT) 56 U/L (15-37); Alanine Aminotransfer ALT/SGPT 39 U/L (16-61); Albumin, Serum 2.6 g/dL (3.2-5.0); Alkaline Phosphatase 73 U/L (45-117); Anion Gap 10 (5-15); BUN 20 mg/dL (7-18); BUN/Creat Ratio 24.2 RATIO (10-20); Calcium,Total 8.2 mg/dL (8.5-10.1); Chloride 105 mmol/L (98-107); Creatinine, Serum 0.83 mg/dL (0.70-1.30); EST Glomerular Filtration Rate 103 mL/min (>60); Est Glom Filt Rate - Afr Amer 125 mL/min (>60); Estimated Creatinine Clearance 101.74 ml/min; Globulin 4.4 g/dL (2.2-4.2); Glucose 102 mg/dL (74-106); Potassium 4.5 mmol/L (3.5-5.1); Sodium Level 137 mmol/L (136-145)
[2021-02-17] MEDS: amLODIPine 5 MG Tablet PO (05:16)
[2021-02-17] MEDS: Metoprolol Tartrate 25 MG Tablet PO ×2 (05:16→20:30)
[2021-02-17] MEDS: Lisinopril 10 MG Tablet PO ×2 (05:17→18:02)
--- NOTE | 2021-02-17 05:48 | PCM.PN.INT ---
Subjective: The patient was seen and examined at the bedside this morning. Events from the last 24 hours have been reviewed. The patient is currently afebrile, hemodynamically stable and maintaining appropriate oxygen saturations on 2 L/min via nasal cannula. The patient remains on Precedex. Last CIWA score was documented to be 5. Objective: The patient's most recent lab work, culture data and imaging studies have all been personally reviewed. General: Alert, Cooperative, No apparent distress HEENT: Atraumatic, Normocephalic Oral: No Gingival or Mucosal Lesions/ Ulcerations Neck: Supple, No Nodes, Trachea Midline Lungs: No rhonchi, No wheeze, No rales, Diminished Cardiovascular: Normal S1, Normal S2, No murmurs, Tachycardic Abdomen: Bowel Sounds Present, Soft, Non Tender Extremities: No clubbing, No cyanosis, No edema, - - Swollen left knee with limited range of motion and tenderness to palpation Skin: No breakdown Musculoskeletal: No Muscle Wasting Lymphatic: No Cervical, Supraclavicular, or Inguinal Adenopathy Neurological: Neuro grossly intact, - - Tremulous Psych/Mental Status: Flat Affect Vital Signs Temp Pulse Resp BP Pulse Ox 97.9 F 89 13 159/118 H 96 02/17/21 04:00 02/17/21 05:16 02/17/21 05:00 02/17/21 05:00 02/17/21 05:00 Oxygen Flow Rate (L/min) 2 Oxygen Delivery Method Nasal Cannula Weight: 174 lb 13.225 oz Body Mass Index (BMI) 25.3 Intake and Output for Last 24 Hours 02/15/21 02/16/21 02/17/21 23:59 23:59 23:59 Intake Total 1459.53 / 1461.48 1175.95 / 1175.95 Output Total 0 / 0 0 / 0 Balance 0 / 120 1459.53 / 1461.48 1175.95 / 1175.95 Labs (Last 48 Hours) 02/16/21 02/16/21 02/17/21 05:03 05:03 03:15 WBC 6.5 5.2 RBC 3.48 L 2.95 L Hgb 12.1 L 10.4 L Hct 36.4 L 31.1 L MCV 104.6 H 105.4 H MCH 34.8 H 35.3 H MCHC 33.2 33.4 RDW Std Deviation 50.3 H 50.4 H RDW Coeff of Philip 13.0 13.0 Plt Count 28 L* 32 L* MPV 10.6 10.8 Immature Gran % (Auto) 0.500 0.400 Neut % (Auto) 66.3 68.5 Lymph % (Auto) 25.7 20.5 [place] % (Auto) 7.1 10.0 Eos % (Auto) 0.2 0.6 Baso % (Auto) 0.2 0.0 Absolute Neuts (auto) 4.3 3.6 Absolute Lymphs (auto) 1.66 1.07 Nucleated RBC % 0 0 Differential Comment SCANNED Diff Path Review March foll Platelet Estimate MKD DEC Anisocytosis 1+ Macrocytosis 1+ Sodium 133 L Potassium 3.4 L Chloride 98 Carbon Dioxide 23.0 Anion Gap 12 BUN 19 H Creatinine 1.03 Estim Creat Clear Calc 81.99 Est GFR (MDRD) Af Amer 97 Est GFR (MDRD) Non-Af 80 BUN/Creatinine Ratio 18.4 Glucose 108 H Calcium 8.9 Total Bilirubin 1.20 H AST 65 H ALT 58 Alkaline Phosphatase 80 Total Protein 7.6 Albumin 3.2 Globulin 4.4 H Albumin/Globulin Ratio 0.7 L 02/17/21 03:15 WBC RBC Hgb Hct MCV MCH MCHC RDW Std Deviation RDW Coeff of Philip Plt Count MPV Immature Gran % (Auto) Neut % (Auto) Lymph % (Auto) [place] % (Auto) Eos % (Auto) Baso % (Auto) Absolute Neuts (auto) Absolute Lymphs (auto) Nucleated RBC % Differential Comment Diff Path Review Platelet Estimate Anisocytosis Macrocytosis Sodium 137 Potassium 4.5 Chloride 105 Carbon Dioxide 22.0 Anion Gap 10 BUN 20 H Creatinine 0.83 Estim Creat Clear Calc 101.74 Est GFR (MDRD) Af Amer 125 Est GFR (MDRD) Non-Af 103 BUN/Creatinine Ratio 24.2 H Glucose 102 Calcium 8.2 L Total Bilirubin 0.90 AST 56 H ALT 39 Alkaline Phosphatase 73 Total Protein 7.0 Albumin 2.6 L Globulin 4.4 H Albumin/Globulin Ratio 0.6 L Medical Necessity - Tobacco Use Smoking Status: Unknown if ever smoked Assessment/Plan All Active Problems (Last Updated 02/14/21 @ 15:[address] Demarco Terrell MD) Acute alcohol withdrawal (Acute) RECOMMENDATIONS: 1. Wean patient from Precedex today. 2. Continue phenobarbital taper and as needed Ativan. 3. Continue CIWA protocol with thiamine and folate repletion. 4. Continue current antihypertensive regimen. 5. Encourage incentive spirometer use and mobilize patient as tolerated. 6. Orthopedic consultation to evaluate knee. IMPRESSIONS: 1. Acute alcohol withdrawal The patient appears to be symptomatically well controlled with improving symptoms of alcohol withdrawal. Plan to attempt to wean the patient from his Precedex infusion today with plans to continue phenobarbital and as needed Ativan, per CIWA protocol. Continue thiamine and folate repletion. 2. Thrombocytopenia/transaminitis Likely secondary to chronic alcohol dependency. No indication for transfusion of blood products at this time. 3. Hypertension Blood pressures have been controlled. Plan to continue current antihypertensive regimen. 4. History of nonischemic cardiomyopathy/poor outpatient compliance Complicates care, management, recovery and prognosis. Continue home medications as indicated. This note was generated with [employer] dictation software. It may contain incorrect words, spelling, and punctuation that were not noted in checking the note before signing. Inpatient E&M: [id number] [facility] Hosp L3
[2021-02-17] MEDS: Multivitamins,Therapeutic Tablet 1 TABLET PO (07:52)
[2021-02-17] MEDS: Folic Acid 1 MG Tablet PO (07:52)
[2021-02-17] MEDS: Thiamine Hydrochloride 100 MG Tablet PO (07:52)
--- NOTE | 2021-02-17 09:24 | CASEMGMT ---
SW participated in ICU rounds, met w/pt after rounds due to alcohol use and self pay status. Pt has no PCP, no insurance, does not utilize any pharmacy. Pt lives with his father for the last two years, plans to eventually move but has nothing set up to do so. Pt is normally independent with ADLs, doesn't drive, is not working. In regard to alcohol use, pt states has been drinking since age of 23. Pt states he wants to quit. He is not certain about going to [facility] and denies he is currently involved with their program. At this point he is undecided if he wants to speak w/someone from [facility]. Pt states that he has been through programs before, but has not maintained sobriety in the past. SW reviewed resources w/pt, including a Medicaid application, [employer], cab voucher program, [address] [place] [address] Resources, information on [facility], mental health resources, Rosalinda Shipley, dental clinics, food pantries, information on financial assist with [facility], prescription assist programs. SW explained to pt will call [facility] today, and see if someone can speak w/him tomorrow if he is agreeable. Pt states understanding. SW called Deedee Howard from [facility] to make her aware of pt, and that SW will let her know tomorrow if pt agreeable to speak w/pt. NORAH will continue to follow. ARIELLE Olivares
--- NOTE | 2021-02-17 10:05 | RAD_ITS ---
STUDY: X-RAY - LEFT KNEE REASON FOR EXAM: Male, 56 years old. Swelling -- portable if able TECHNIQUE: 4 view(s) of the knee. COMPARISON: None. FINDINGS: Normal visualized distal femur. Normal visualized proximal tibia and fibula. Normal proximal tibiofibular articulation. Normal medial femorotibial compartment. Normal lateral femorotibial compartment. Normal patellofemoral articulation. Large joint effusion. Soft tissue swelling. RAD/Knee 4 or More Views IMPRESSION: Large joint effusion. Diffuse soft tissue swelling. Electronically Signed: Jonathan Huertas MD at 10:29 EDT , Service support ,
[2021-02-17] MEDS: Menthol/Lanolin/Calamine/Znox 113 GM Tube 1 APPLIC TOPICAL (10:06)
--- NOTE | 2021-02-17 11:23 | CON.PCM_ITS ---
Reason for Consult Date of Consultation: 02/17/21 Reason for Consultation: Left knee pain and swelling History of Present Illness: Consultation below was performed in collaboration with Dr. Javier Gatica. The patient is a 56 year old M [history of alcoholism who was admitted to [facility] last week. Eventually was transferred to the intensive care unit. He is a poor historian they started to notice he was complaining of left knee pain and swelling. He has difficulty with assessing time he states that the left knee pain started after 2 falls the most recent fall being 2 weeks ago. The knee pain and swelling he states has gotten worse over the past 3 or 4 da ys. Also upon asking he states that the knee pain has been present for multiple years ascending and descending stairs. A couple weeks ago he additionally injured his right great toe. Orthopedics was consulted due to left knee pain swelling and immobility. At rest he describes the pain at a 7 out of 10. With motion and activity he describes it as an 8 or 9 out of 10. No hip or ankle pain on the left side. No knee pain on the right side.] Past Medical History Past Medical History (Chronic Problems): Chronic Problems (Last Updated 02/14/21 @ 15:[address] Demarco Terrell MD) Alcohol abuse (Chronic) Thrombocytopenia (Chronic) Essential (primary) hypertension (Chronic) Nonrheumatic mitral (valve) prolapse (Chronic) Nonischemic cardiomyopathy (Chronic) Medical History: Medical History (Last Updated 02/14/21 @ 15:[address] Demarco Terrell MD) Essential (primary) hypertension (Chronic) I10 Nonrheumatic mitral (valve) prolapse (Chronic) I34.1 Nonischemic cardiomyopathy (Chronic) I42.8 Alcoholic hepatitis K70.10 Alcoholism /alcohol abuse F10.20 Pancytopenia D61.818 Chewing tobacco use (Inactive) Z72.0 Allergies No Known Allergies Allergy (Verified 02/14/21 14:25) Home Medications: Ambulatory Orders Medication Instructions Recorded NK 07/12/20 Surgical History: Surgical History (Last Reviewed 07/12/20 @ 11:17 by Janet Black) History of left heart catheterization Onset Date: 04/11/19 Z98.890 Surgical History: tonsillectomy Psychiatric History: No pertinent psych hx Lives: With Family Smoking Status: Unknown if ever smoked Alcohol: Heavy Drugs: None - *Family History Paternal Family History: Family History (Last Updated 07/12/20 @ 11:17 by Janet Black) Grandfather Myocardial infarction Uncle Myocardial infarction Mother Cancer Father Cancer History Items: Heart Disease - grandfather and uncle of heart attacks at a young age. Maternal Family History: Family History (Last Updated 07/12/20 @ 11:17 by Janet Black) Grandfather Myocardial infarction Uncle Myocardial infarction Mother Cancer Father Cancer History Items: Cancer - mother had bladder cancer Review of Systems Comment: Documented in the electronic medical record and personally reviewed Patient Problems: Active and Suspected Problems (Last Updated 02/14/21 @ 15:[address] Demarco Terrell MD) Acute alcohol withdrawal (Acute) Objective: Patient is resting comfortably in bed during the exam left knee is slightly flexed and propped. He is in no acute distress at rest. Breathing easily without respiratory distress. Right hip knee and ankle are normal and pain-free no tenderness to palpation right knee is without palpable effusion erythema warmth or signs of infection. Right knee range of motion is 0 to 120 degrees without pain. Right foot inspection is with missing great toenail and dried blood in place. Without active drainage left hip is without deformity. Gentle flexion extension and rotation of the left hip are with minimal if any pain. No tenderness to palpation over the left hip region. There is a large palpable effusion of the left knee with tenderness to palpation. Patient is able to actively perform a straight leg raise against gravity on the left. Left knee lacks 25 degrees of extension with flexion to 65 degrees. Negative valgus/varus stress test on the left. Negative Roma bilaterally without signs of DVT. Left ankle without deformity or tenderness. Full range of motion left ankle against gravity sensation intact to light touch. Diagnostic studies laboratory results are documented in the electronic medical record and were personally reviewed discussed and reviewed with Dr. Javier Gatica X-rays of left knee were obtained today they are with presence of large knee joint effusion otherwise without acute bony abnormality fracture dislocation lytic or blastic lesions - Physical Exam Vitals/I&O's: Vital Signs Temp Pulse Resp BP Pulse Ox 97.0 F L 105 H 18 128/84 H 98 02/17/21 08:00 02/17/21 10:00 02/17/21 10:00 02/17/21 10:00 02/17/21 10:00 Oxygen Flow Rate (L/min) 2 Oxygen Delivery Method Room Air Weight: 79.3 kg Body Mass Index (BMI) 25.3 Intake and Output for Last 24 Hours 02/15/21 02/16/21 02/17/21 23:59 23:59 23:59 Intake Total 1459.53 / 1461.48 2795.96 / 2795.96 Output Total 0 / 0 0 / 0 Balance 0 / 120 1459.53 / 1461.48 2795.96 / 2795.96 Laboratory Results 02/17/21 03:15: WBC 5.2, RBC 2.95 L, Hgb 10.4 L, Hct 31.1 L, MCV 105.4 H, MCH 35.3 H, MCHC 33.4, RDW Std Deviation 50.4 H, RDW Coeff of Philip 13.0, Plt Count 32 L*, MPV 10.8, Immature Gran % (Auto) 0.400, Neut % (Auto) 68.5, Lymph % (Auto) 20.5, [place] % (Auto) 10.0, Eos % (Auto) 0.6, Baso % (Auto) 0.0, Absolute Neuts (auto) 3.6, Absolute Lymphs (auto) 1.07, Nucleated RBC % 0, Diff Path Review March02/17/21 03:15: Sodium 137, Potassium 4.5, Chloride 105, Carbon Dioxide 22.0, Anion Gap 10, BUN 20 H, Creatinine 0.83, Estim Creat Clear Calc 101.74, Est GFR (MDRD) Af Amer 125, Est GFR (MDRD) Non-Af 103, BUN/Creatinine Ratio 24.2 H, Glucose 102, Calcium 8.2 L, Total Bilirubin 0.90, AST 56 H, ALT 39, Alkaline Phosphatase 73, Total Protein 7.0, Albumin 2.6 L, Globulin 4.4 H, Albumin/Globulin Ratio 0.6 L Current Medications Amlodipine Besylate (Amlodipine 5 Mg Tablet) 5 mg PO DAILY [facility] Last Admin: 02/17/21 05:16 Dose: 5 mg Documented by: Calamine/Phenol (Menthol/Lanolin/Calamine/Znox 113 Gm Tube) 1 applic TOPICAL BID JORGE; Protocol Last Admin: 02/17/21 10:06 Dose: 1 applic Documented by: Dicyclomine HCl (Dicyclomine 10 Mg Capsule) 20 mg PO Q6H PRN PRN PRN Reason: abdominal discomfort Folic Acid (Folic Acid 1 Mg Tablet) 1 mg PO DAILY@0800 [facility] Last Admin: 02/17/21 07:52 Dose: 1 mg Documented by: Gabapentin (Gabapentin 300 Mg Capsule) 300 mg PO Q8H PRN PRN PRN Reason: moderate to severe anxiety Last Admin: 02/14/21 21:43 Dose: 300 mg Documented by: Hydroxyzine Pamoate (Hydroxyzine Vibha 25 Mg Capsule) 50 mg PO Q4H PRN PRN PRN Reason: mild anxiety Sodium Chloride () 250 mls @ 15 mls/hr IV .[id number] PRN PRN Reason: Saline Flush Dexmedetomidine HCl 1,000 mcg/ (Sodium Chloride) 250 mls @ 9.713 mls/hr CONT INF .[id number] [facility]; Protocol Last Titration: 02/17/21 10:00 Dose: 0 mcg/kg/hr, 0 mls/hr Documented by: Sodium Chloride () 1,000 mls @ 150 mls/hr IV .Q6H40M [facility] Last Admin: 02/17/21 10:05 Dose: Not Given Documented by: Lisinopril (Lisinopril 10 Mg Tablet) 10 mg PO DAILY [facility] Last Admin: 02/17/21 05:17 Dose: 10 mg Documented by: Loperamide HCl (Loperamide 2 Mg Capsule) 2 mg PO Q4H PRN PRN PRN Reason: LOOSE STOOLS Lorazepam (Lorazepam 1 Mg Tablet) 2 mg PO Q2H PRN PRN; Protocol PRN Reason: CIWA score > 8 but <15 Last Admin: 02/15/21 04:36 Dose: 2 mg Documented by: Lorazepam (Lorazepam 1 Mg Tablet) 2 mg PO UD PRN; Protocol PRN Reason: CIWA score >/=15. Lorazepam (Lorazepam 2 Mg/Ml Syringe) 2 mg IV Q2H PRN PRN; Protocol PRN Reason: CIWA score > 8 but <15 Last Admin: 02/14/21 23:46 Dose: 2 mg Documented by: Lorazepam (Lorazepam 2 Mg/Ml Syringe) 2 mg IV UD PRN; Protocol PRN Reason: CIWA score >/=15. Last Admin: 02/16/21 00:21 Dose: 2 mg Documented by: Metoprolol Tartrate (Metoprolol Tartrate 25 Mg Tablet) 25 mg PO BID [facility] Last Admin: 02/17/21 05:16 Dose: 25 mg Documented by: Metoprolol Tartrate (Metoprolol Tartrate 5 Mg/5 Ml Vial) 5 mg IV Q6H PRN PRN PRN Reason: Tachycardia Last Admin: 02/16/21 08:24 Dose: 5 mg Documented by: Multivitamins ([facility]ivitamins,Therapeutic Tablet) [facility] Last Admin: 02/17/21 07:52 Dose: 1 tablet Documented by: Ondansetron HCl (Ondansetron 4 Mg/2 Ml Vial) 4 mg IV Q8H PRN PRN PRN Reason: NAUSEA/VOMITING Ondansetron HCl (Ondansetron 8 Mg Tablet) 8 mg PO Q8H PRN PRN PRN Reason: NAUSEA Phenobarbital (Phenobarbital 32.4 Mg Tablet) 64.8 mg PO Q6H [facility]; Taper Stop: 02/19/21 01:59 Last Admin: 02/17/21 07:52 Dose: 64.8 mg Documented by: Sodium Chloride (0.9% Saline Lock 10 Ml Syringe) 10 - 40 ml IV UD PRN PRN Reason: SALINE FLUSH Last Admin: 02/17/21 03:49 Dose: 10 ml Documented by: Thiamine HCl (Thiamine Hydrochloride 100 Mg Tablet) [facility] Last Admin: 02/17/21 07:52 Dose: 100 mg Documented by: Trazodone HCl (Trazodone 100 Mg Tablet) 100 mg PO QHS PRN PRN PRN Reason: INSOMNIA Assessment/Plan All Active Problems (Last Updated 02/14/21 @ 15:[address] Demarco Terrell MD) Acute alcohol withdrawal (Acute) Procedure note: Under sterile conditions Dr. Javier Gatica prepared the left knee with multiple Betadine swabs followed by multiple alcohol swabs. From the superior pole of the patella 18-gauge needle and syringe were used to aspirate approximately 110 cc of bloody aspirate from the left knee. Sterile OpSite was used to cover aspiration site patient tolerated procedure well. He had some improvement with pain and range of motion post aspiration 15 to 80 degrees on the left knee. Assessment History of left knee strain/sprain/contusion with knee joint effusion possible traumatic effusion versus septic knee joint in a patient who is a poor historian with a history of alcoholism Plan: Dr. Javier Gatica and myself did discussed and reviewed further treatment options with the patient. He did wish to proceed with aspiration of the left knee joint. We will send the knee synovial fluid for culture sensitivity Gram stain cell count and crystals for further analysis. In the interim he will continue with conservative measures rest ice heat compression elevation for any pain or swelling. Oral pain medications if needed. Continue to work on gentle range of motion and weight-bear as tolerated. We will follow up once results are posted from the knee joint aspirate.
[2021-02-17 11:44] LABS: Synovial Fld Mononuclear WBC % 4.7 %; Synovial Fld Polynuclear WBC # 12.538 10^3/uL; Synovial Fld Polynuclear WBC % 95.3 %
[2021-02-17 11:55] LABS: AUTO B FLUID DILUENT BKGD CT WBC <0.1 RBC <0.01 (W<.1,R<.01); Source- Body Fluid SYNOVIAL
[2021-02-17 11:56] LABS: Appearance /Synovial Fluid Turbid (CLEAR); Color / Synovial Fluid Red (Pale Yellow); Viscosity / Synovial Fluid Mod. Viscous (HIGH)
[2021-02-17 12:09] LABS: CRYSTALS, BODY FLUID URIC ACID
[2021-02-17 12:10] LABS: Body Fluid QC Type(s) BF1,BF2
[2021-02-17 13:25] LABS: Lymph 1 %; Neutrophil 99 % (0-25)
[2021-02-17 14:08] LABS: Pathologist Review Reviewed
[2021-02-17 14:09] LABS: Pathologist Review Reviewed
[2021-02-17 14:09] LABS: Pathologist Review Reviewed
[2021-02-17 14:27] LABS: Pathologist Review Reviewed
--- NOTE | 2021-02-17 16:51 | PN_ITS ---
Patient Problems: Active and Suspected Problems (Last Updated 02/14/21 @ 15:[address] eDmarco Terrell MD) Acute alcohol withdrawal (Acute) Subjective: Patient was seen and examined today in ICU-he does not appear to be agitated or tremorous, orthopedic surgery saw him today and removed 110 cc of fluid from the left knee area. I talked briefly with critical care about the patient's medical care and he was felt to be stable for transfer to the floor for further care. - Physical Exam Vitals/I&O's: Vital Signs Temp Pulse Resp BP Pulse Ox 99.7 F H 127 H 20 H 152/97 H 99 02/17/21 16:03 02/17/21 16:03 02/17/21 16:03 02/17/21 16:03 02/17/21 16:03 Oxygen Flow Rate (L/min) 2 Oxygen Delivery Method Room Air Weight: 79.3 kg Body Mass Index (BMI) 25.3 Intake and Output for Last 24 Hours 02/15/21 02/16/21 02/17/21 23:59 23:59 23:59 Intake Total 1459.53 / 1461.48 3795.96 / 3795.96 Output Total 0 / 0 0 / 0 Balance 0 / 120 1459.53 / 1461.48 3795.96 / 3795.96 General: Alert, Oriented x3, Cooperative, No apparent distress, Well developed, Well nourished HEENT: Atraumatic, PERRLA, EOMI, Normocephalic Oral: Moist Mucosa Neck: Supple, No JVD, No Nuchal Rigidity, Trachea Midline, Thyroid Normal Size and Texture Lungs: Clear to auscultation, Normal air movement, No rhonchi, No wheeze, No rales Cardiovascular: Regular rate, Regular Rhythm, Normal S1, Normal S2, No murmurs, PMI Normal, No rub noted, No Gallop Abdomen: Bowel Sounds Present, Soft, Non Tender, Non-Distended Extremities: Capillary Refill Less than 3 Seconds, - - Left knee was wrapped with Saravanan wrap- this was not removed for examination the area Skin: No rashes, No breakdown Musculoskeletal: No Tenderness to Palpation of Joints or Extremities Neurological: Cranial nerves II-XII grossly intact, Neuro grossly intact, Sensory exam intact to light touch and pain, Coordination normal Psych/Mental Status: Normal Affect, Appropriate, Alert and oriented to time, place, person, mood and affect Microbiology Past 72 Hours 02/17/21 11:20 Fluid - Synovial (joint) Gram Stain - Final Laboratory Results 02/14/21 14:35: Diff Path Review Reviewed 02/15/21 03:30: Diff Path Review Reviewed 02/16/21 05:03: Diff Path Review Reviewed 02/17/21 03:15: WBC 5.2, RBC 2.95 L, Hgb 10.4 L, Hct 31.1 L, MCV 105.4 H, MCH 35.3 H, MCHC 33.4, RDW Std Deviation 50.4 H, RDW Coeff of Philip 13.0, Plt Count 32 L*, MPV 10.8, Immature Gran % (Auto) 0.400, Neut % (Auto) 68.5, Lymph % (Auto) 20.5, [place] % (Auto) 10.0, Eos % (Auto) 0.6, Baso % (Auto) 0.0, Absolute Neuts (auto) 3.6, Absolute Lymphs (auto) 1.07, Nucleated RBC % 0, Diff Path Review Reviewed 02/17/21 03:15: Sodium 137, Potassium 4.5, Chloride 105, Carbon Dioxide 22.0, Anion Gap 10, BUN 20 H, Creatinine 0.83, Estim Creat Clear Calc 101.74, Est GFR (MDRD) Af Amer 125, Est GFR (MDRD) Non-Af 103, BUN/Creatinine Ratio 24.2 H, Glucose 102, Calcium 8.2 L, Total Bilirubin 0.90, AST 56 H, ALT 39, Alkaline Phosphatase 73, Total Protein 7.0, Albumin 2.6 L, Globulin 4.4 H, Albumin/Globulin Ratio 0.6 L 02/17/21 11:20: Fluid Crystals URIC ACID, Fluid Crystal Source SYNOVIAL, Synovial Source UNK, Synovial Color Red, Synovial Appearance Turbid, Synovial Viscosity Mod. Viscous, Synovial WBC 16.6420 H, Synovial RBC 0.430 H, Synovial Tot Cell Ct 16.7000 H, Synov Polynuclear WBCs 12.538, Synovial Neutrophils 99 H, Synovial Lymphocytes 1, Synovial Polynuclear % 95.3, Synovial Mononuclear % 4.7, Synovial Path Comment May follow Current Medications Amlodipine Besylate (Amlodipine 5 Mg Tablet) 5 mg PO DAILY [facility] Last Admin: 02/17/21 05:16 Dose: 5 mg Documented by: Folic Acid (Folic Acid 1 Mg Tablet) 1 mg PO DAILY@0800 [facility] Last Admin: 02/17/21 07:52 Dose: 1 mg Documented by: Hydroxyzine Pamoate (Hydroxyzine Vibha 25 Mg Capsule) 50 mg PO Q4H PRN PRN PRN Reason: mild anxiety Sodium Chloride () 250 mls @ 15 mls/hr IV .[id number] PRN PRN Reason: Saline Flush Sodium Chloride () 1,000 mls @ 150 mls/hr IV .Q6H40M [facility] Last Admin: 02/17/21 15:33 Dose: 150 mls/hr Documented by: Lisinopril (Lisinopril 10 Mg Tablet) 10 mg PO DAILY [facility] Last Admin: 02/17/21 05:17 Dose: 10 mg Documented by: Lorazepam (Lorazepam 1 Mg Tablet) 2 mg PO Q2H PRN PRN; Protocol PRN Reason: CIWA score > 8 but <15 Last Admin: 02/15/21 04:36 Dose: 2 mg Documented by: Lorazepam (Lorazepam 1 Mg Tablet) 2 mg PO UD PRN; Protocol PRN Reason: CIWA score >/=15. Lorazepam (Lorazepam 2 Mg/Ml Syringe) 2 mg IV Q2H PRN PRN; Protocol PRN Reason: CIWA score > 8 but <15 Last Admin: 02/14/21 23:46 Dose: 2 mg Documented by: Metoprolol Tartrate (Metoprolol Tartrate 25 Mg Tablet) 25 mg PO BID [facility] Last Admin: 02/17/21 05:16 Dose: 25 mg Documented by: Multivitamins (Multivitamins,Therapeutic Tablet) [facility] Last Admin: 02/17/21 07:52 Dose: 1 tablet Documented by: Ondansetron HCl (Ondansetron 8 Mg Tablet) 8 mg PO Q8H PRN PRN PRN Reason: NAUSEA Phenobarbital (Phenobarbital 32.4 Mg Tablet) 64.8 mg PO Q6H [facility]; Taper Stop: 02/19/21 01:59 Last Admin: 02/17/21 13:22 Dose: 64.8 mg Documented by: Sodium Chloride (0.9% Saline Lock 10 Ml Syringe) 10 - 40 ml IV UD PRN PRN Reason: SALINE FLUSH Last Admin: 02/17/21 03:49 Dose: 10 ml Documented by: Thiamine HCl (Thiamine Hydrochloride 100 Mg Tablet) 100 mg PO DAILYCM [facility] Last Admin: 02/17/21 07:52 Dose: 100 mg Documented by: Trazodone HCl (Trazodone 100 Mg Tablet) 100 mg PO QHS PRN PRN PRN Reason: INSOMNIA Medical Necessity - Tobacco Use Smoking Status: Unknown if ever smoked Assessment/Plan All Active Problems (Last Updated 02/14/21 @ 15:[address] Demarco Terrell MD) Acute alcohol withdrawal (Acute) #1 acute DTs-resolving at this time, patient is appears stable for transfer to the floor for further care #2 chronic alcoholism #3 left knee effusion-etiology unclear at this point, joint effusion shows a large number of white blood cells, culture pending #4 alcoholic cirrhosis #5 essential hypertension-I will increase the patient's lisinopril to 20 mg daily #6 thrombocytopenia secondary to cirrhosis #7 alcoholic hepatitis-improving #8 Nonischemic cardiomyopathy-by history, patient's lisinopril dosage will be increased Inpatient E&M: 33248 Subs Hosp L2
[2021-02-17] MEDS: LORazepam 1 MG Tablet 2 MG PO ×2 (18:14→20:30)
[2021-02-17] MEDS: traZODone 100 MG Tablet PO (20:30)
[2021-02-18] VITALS (9 sets, daily range): BP systolic 134–161; BP diastolic 90–114; PULSE 103–117; RESP 18–20; TEMP 36.4–37.2; O2SAT 98–100
[2021-02-18] MEDS: LORazepam 1 MG Tablet 2 MG PO (02:09)
[2021-02-18] MEDS: Phenobarbital 32.4 MG Tablet PO ×4 (02:09→22:53)
[2021-02-18] MEDS: hydrOXYzine PAM 25 MG Capsule 50 MG PO (02:09)
[2021-02-18] MEDS: 0.9% Normal Saline 1,000 ML 150 ML IV ×3 (04:48→18:18)
--- NOTE | 2021-02-18 07:32 | PN.ORTHO_ITS ---
Patient Problems: Active and Suspected Problems (Last Updated 02/14/21 @ 15:[address] Demarco Terrell MD) Acute alcohol withdrawal (Acute) Subjective: This 56-year-old male with a history of alcoholism and left knee pain and swelling underwent a left knee aspiration by Dr. Javier Gatica yesterday the fluid was sent for analysis. He was since transferred from the intensive care unit to the medical surgical unit. He has been continually medicated and has been groggy and lethargic. He barely opens his eyes for me this morning he will not verbally answer questions for me. He just mumbles. He does not appear to be in any acute distress. Objective: Inspection of patient's right knee is with moderate size recurrent knee joint effusion with minimal tenderness to palpation. Range of motion lacking 30 degrees of extension with flexion to 95 degrees with increased pain there is ecchymosis and superficial abrasions of the lower leg without signs of infection. No calf pain or swelling bilaterally. Legs are neurovascularly intact Diagnostic studies Gram stain and cell count were reviewed Gram stain was negative without organisms noted but with red blood cells and white blood cells present. Uric acid crystals are noted in the synovial fluid analysis. Still awaiting culture results. - Physical Exam Vitals/I&O's: Vital Signs Temp Pulse Resp BP Pulse Ox 97.9 F 109 H 18 161/92 H 99 02/18/21 02:03 02/18/21 02:03 02/18/21 02:03 02/18/21 02:03 02/18/21 02:03 Oxygen Flow Rate (L/min) 2 Oxygen Delivery Method Room Air Weight: 79 kg Body Mass Index (BMI) 25.3 Intake and Output for Last 24 Hours 02/16/21 02/17/21 02/18/21 23:59 23:59 23:59 Intake Total 1459.53 / 1461.48 4938.46 / 5188.46 1245 / 1245 Output Total 0 / 0 0 / 0 Balance 1459.53 / 1461.48 4938.46 / 5188.46 1245 / 1245 Microbiology Past 72 Hours 02/17/21 11:20 Fluid - Synovial (joint) Gram Stain - Final Laboratory Results 02/14/21 14:35: Diff Path Review Reviewed 02/15/21 03:30: Diff Path Review Reviewed 02/16/21 05:03: Diff Path Review Reviewed 02/17/21 03:15: Diff Path Review Reviewed 02/17/21 11:20: Fluid Crystals URIC ACID, Fluid Crystal Source SYNOVIAL, Synovial Source UNK, Synovial Color Red, Synovial Appearance Turbid, Synovial Viscosity Mod. Viscous, Synovial WBC 16.6420 H, Synovial RBC 0.430 H, Synovial Tot Cell Ct 16.7000 H, Synov Polynuclear WBCs 12.538, Synovial Neutrophils 99 H, Synovial Lymphocytes 1, Synovial Polynuclear % 95.3, Synovial Mononuclear % 4.7, Synovial Path Comment May follow Current Medications Amlodipine Besylate (Amlodipine 5 Mg Tablet) 5 mg PO DAILY [facility] Last Admin: 02/17/21 05:16 Dose: 5 mg Documented by: Folic Acid (Folic Acid 1 Mg Tablet) 1 mg PO DAILY@0800 [facility] Last Admin: 02/17/21 07:52 Dose: 1 mg Documented by: Hydroxyzine Pamoate (Hydroxyzine Vibha 25 Mg Capsule) 50 mg PO Q4H PRN PRN PRN Reason: mild anxiety Last Admin: 02/18/21 02:09 Dose: 50 mg Documented by: Sodium Chloride () 250 mls @ 15 mls/hr IV .[id number] PRN PRN Reason: Saline Flush Sodium Chloride () 1,000 mls @ 150 mls/hr IV .Q6H40M [facility] Last Admin: 02/18/21 04:48 Dose: 150 mls/hr Documented by: Lisinopril (Lisinopril 20 Mg Tablet) 20 mg PO DAILY [facility] Lorazepam (Lorazepam 1 Mg Tablet) 2 mg PO Q2H PRN PRN; Protocol PRN Reason: CIWA score > 8 but <15 Last Admin: 02/18/21 02:09 Dose: 2 mg Documented by: Lorazepam (Lorazepam 1 Mg Tablet) 2 mg PO UD PRN; Protocol PRN Reason: CIWA score >/=15. Lorazepam (Lorazepam 2 Mg/Ml Syringe) 2 mg IV Q2H PRN PRN; Protocol PRN Reason: CIWA score > 8 but <15 Last Admin: 02/14/21 23:46 Dose: 2 mg Documented by: Metoprolol Tartrate (Metoprolol Tartrate 25 Mg Tablet) 25 mg PO BID [facility] Last Admin: 02/17/21 20:30 Dose: 25 mg Documented by: Multivitamins (Multivitamins,Therapeutic Tablet) [facility] Last Admin: 02/17/21 07:52 Dose: 1 tablet Documented by: Ondansetron HCl (Ondansetron 8 Mg Tablet) 8 mg PO Q8H PRN PRN PRN Reason: NAUSEA Phenobarbital (Phenobarbital 32.4 Mg Tablet) 32.4 mg PO Q6H [facility]; Taper Stop: 02/19/21 01:59 Last Admin: 02/18/21 02:09 Dose: 32.4 mg Documented by: Sodium Chloride (0.9% Saline Lock 10 Ml Syringe) 10 - 40 ml IV UD PRN PRN Reason: SALINE FLUSH Last Admin: 02/17/21 03:49 Dose: 10 ml Documented by: Thiamine HCl (Thiamine Hydrochloride 100 Mg Tablet) [facility] Last Admin: 02/17/21 07:52 Dose: 100 mg Documented by: Trazodone HCl (Trazodone 100 Mg Tablet) 100 mg PO QHS PRN PRN PRN Reason: INSOMNIA Last Admin: 02/17/21 20:30 Dose: 100 mg Documented by: Medical Necessity - Tobacco Use Smoking Status: Unknown if ever smoked Assessment/Plan All Active Problems (Last Updated 02/14/21 @ 15:[address] Demarco Terrell MD) Acute alcohol withdrawal (Acute) Assessment: Traumatic right knee effusion in a patient with a history of alcoholism and marked thrombocytopenia with presence of uric acid crystals in the left knee likely consistent with gouty arthropathy without evidence of knee joint infection Plan: Discussed and reviewed further treatment options with Dr. Javier Gatica as the case above was reviewed as well as the patient. Orthopedically we will sign off and recommend continuation of conservative measures. Rest ice heat compression elevation for any pain or swelling. May continue weightbearing as tolerated. Recommend working with physical therapy for ambulation. Follow-up with orthopedics on an as-needed basis we will continue to follow the cultures if cultures pending are consistent with any type of microbial growth we will discuss further treatment options otherwise we will follow-up as needed.
[2021-02-18] MEDS: Folic Acid 1 MG Tablet PO (08:34)
[2021-02-18] MEDS: Multivitamins,Therapeutic Tablet 1 TABLET PO (08:34)
[2021-02-18] MEDS: Metoprolol Tartrate 25 MG Tablet PO (08:35)
[2021-02-18] MEDS: Thiamine Hydrochloride 100 MG Tablet PO (08:35)
[2021-02-18] MEDS: amLODIPine 5 MG Tablet PO (08:35)
--- NOTE | 2021-02-18 09:00 | CASEMGMT ---
Social Work Note Pt did sign RAMP contract. SW received call from Ronnell at [facility] stating Deedee called off today, she will be at [facility] around 12:00pm to see pt. Rachel BEAVER, [employer]
[2021-02-18] MEDS: Lisinopril 20 MG Tablet PO (10:50)
[2021-02-18 11:07] LABS: Pathologist Review Reviewed
[2021-02-18 11:08] LABS: Pathologist Comment Reviewed
--- NOTE | 2021-02-18 14:14 | ADDICTION ---
This singer songwriter met with PT to complete ASAM, MSE, DUDIT assessments and to plan for d/c. ASAM was started, MSE was completed, and PT refused to sign PABLO. Those three documents were faxed to [facility]. PT was disoriented, kept stating sentences that were fragmented and unintelligible. This worker obtained minimal information for assessments. This clinician shared information with current nurse, Lisa, who stated that is how he has presented since arriving on the floor. This worker will share this information with Mary Anne, for f/u on 02/19/2021.
--- NOTE | 2021-02-18 15:02 | PN_ITS ---
Patient Problems: Active and Suspected Problems (Last Updated 02/14/21 @ 15:[address] Demarco Terrell MD) Acute alcohol withdrawal (Acute) Subjective: Patient was seen and examined today, he appeared lethargic and somnolent, he was only able to answer questions with simple yes or no. He appeared in no distress. - Physical Exam Vitals/I&O's: Vital Signs Temp Pulse Resp BP Pulse Ox 99.0 F 108 H 18 148/103 H 100 02/18/21 14:52 02/18/21 14:52 02/18/21 14:52 02/18/21 14:52 02/18/21 14:52 Oxygen Flow Rate (L/min) 2 Oxygen Delivery Method Room Air Weight: 79 kg Body Mass Index (BMI) 25.3 Intake and Output for Last 24 Hours 02/16/21 02/17/21 02/18/21 23:59 23:59 23:59 Intake Total 1459.53 / 1461.48 4938.46 / 5188.46 2695 / 2695 Output Total 0 / 0 0 / 0 Balance 1459.53 / 1461.48 4938.46 / 5188.46 2695 / 2695 General: Alert, Cooperative, No apparent distress, Well developed, Lethargic HEENT: Atraumatic, PERRLA, EOMI, Normocephalic Oral: Moist Mucosa Neck: Supple, No JVD, Trachea Midline, Thyroid Normal Size and Texture Lungs: Clear to auscultation, Normal air movement, No rhonchi, No wheeze, No ral es Cardiovascular: Regular rate, Regular Rhythm, Normal S1, Normal S2, No murmurs, PMI Normal, No rub noted, No Gallop Abdomen: Bowel Sounds Present, Soft, Non Tender, Non-Distended Extremities: No clubbing, No cyanosis, No edema, Capillary Refill Less than 3 Seconds Skin: No rashes, No breakdown Musculoskeletal: No Tenderness to Palpation of Joints or Extremities Neurological: Cranial nerves II-XII grossly intact, Neuro grossly intact, Sensory exam intact to light touch and pain, Coordination normal Psych/Mental Status: Normal Affect, Appropriate, Alert and oriented to time, place, person, mood and affect Microbiology Past 72 Hours 02/17/21 11:20 Fluid - Synovial (joint) Gram Stain - Final 02/17/21 11:20 Fluid - Synovial (joint) Body Fluid Culture - Preliminary No growth-Final to follow Laboratory Results 02/17/21 11:20: Fl Crystal Path Review Reviewed, Synovial Path Comment Reviewed Current Medications Amlodipine Besylate (Amlodipine 5 Mg Tablet) 5 mg PO DAILY [facility] Last Admin: 02/18/21 08:35 Dose: 5 mg Documented by: Folic Acid (Folic Acid 1 Mg Tablet) 1 mg PO DAILY@0800 [facility] Last Admin: 02/18/21 08:34 Dose: 1 mg Documented by: Hydroxyzine Pamoate (Hydroxyzine Vibha 25 Mg Capsule) 50 mg PO Q4H PRN PRN PRN Reason: mild anxiety Last Admin: 02/18/21 02:09 Dose: 50 mg Documented by: Sodium Chloride () 250 mls @ 15 mls/hr IV .[id number] PRN PRN Reason: Saline Flush Sodium Chloride () 1,000 mls @ 150 mls/hr IV .[id number] [facility] Last Admin: 02/18/21 11:56 Dose: 150 mls/hr Documented by: Lisinopril (Lisinopril 20 Mg Tablet) 20 mg PO DAILY [facility] Last Admin: 02/18/21 10:50 Dose: 20 mg Documented by: Lorazepam (Lorazepam 1 Mg Tablet) 2 mg PO Q2H PRN PRN; Protocol PRN Reason: CIWA score > 8 but <15 Last Admin: 02/18/21 02:09 Dose: 2 mg Documented by: Lorazepam (Lorazepam 1 Mg Tablet) 2 mg PO UD PRN; Protocol PRN Reason: CIWA score >/=15. Lorazepam (Lorazepam 2 Mg/Ml Syringe) 2 mg IV Q2H PRN PRN; Protocol PRN Reason: CIWA score > 8 but <15 Last Admin: 02/14/21 23:46 Dose: 2 mg Documented by: Metoprolol Tartrate (Metoprolol Tartrate 25 Mg Tablet) 25 mg PO BID [facility] Last Admin: 02/18/21 08:35 Dose: 25 mg Documented by: Multivitamins ([facility],Therapeutic Tablet) [facility] Admin: 02/18/21 08:34 Dose: 1 tablet Documented by: Ondansetron HCl (Ondansetron 8 Mg Tablet) 8 mg PO Q8H PRN PRN PRN Reason: NAUSEA Phenobarbital (Phenobarbital 32.4 Mg Tablet) 32.4 mg PO TID JORGE; Taper Stop: 02/23/21 05:59 Sodium Chloride (0.9% Saline Lock 10 Ml Syringe) 10 - 40 ml IV UD PRN PRN Reason: SALINE FLUSH Last Admin: 02/17/21 03:49 Dose: 10 ml Documented by: Thiamine HCl (Thiamine Hydrochloride 100 Mg Tablet) 100 mg PO DAILYCM JORGE Last Admin: 02/18/21 08:35 Dose: 100 mg Documented by: Trazodone HCl (Trazodone 100 Mg Tablet) 100 mg PO QHS PRN PRN PRN Reason: INSOMNIA Last Admin: 02/17/21 20:30 Dose: 100 mg Documented by: Medical Necessity - Tobacco Use Smoking Status: Unknown if ever smoked Assessment/Plan All Active Problems (Last Updated 02/14/21 @ 15:[address] Demarco Terrell MD) Acute alcohol withdrawal (Acute) #1 acute DTs-resolving at this time, I will obtain an ammonia level due to lethargy, will taper phenobarb to see if it helps with the patient's alertness #2 chronic alcoholism #3 lleft knee gouty arthritis/effusion #4 alcoholic cirrhosis #5 essential hypertension-will increase metoprolol #6 thrombocytopenia secondary to cirrhosis #7 alcoholic hepatitis-improving #8 Nonischemic cardiomyopathy-by history Inpatient E&M: 60156 Subs Hosp L2
--- NOTE | 2021-02-18 15:05 | CHAPLAIN ---
Type of Pastoral Visit _x__ Initial Visit ___ Follow-up Visit ___ On-call Visit ___ General Patient Visit ___ Spiritual Assessment ___ Family Conference ___ Bereavement ___ Rapid Response ___ Code Blue ___ Other (describe below) Pastoral Care Referral From _x__ Patient ___ Family ___ Nurse ___ Physician ___ Food Service Employee ___ [place] ___ Other (describe below) Sacrament/Intervention _x__ Active listening ___ Anointing ___ Orthodoxy ___ Bereavement ___ Communion ___ Fior exploration ___ ___ Life review _x__ Prayer ___ Reconciliation ___ Sacrament of Sick _x__ Supportive presence ___ Wedding ___ Other (describe below) Pastoral Comments patient is awake but responds minimally to questions; pt mumbles words and phrases although he does acknowledge presence of this stogie packer and answers yes to offer of presence and prayer; however pt is not engaging in conversation and so offer made by this stogie packer to return tomorrow is accepted by pt
[2021-02-18] MEDS: Metoprolol Tartrate 50 MG Tablet PO (18:16)
[2021-02-18] MEDS: predniSONE 20 MG Tablet 40 MG PO (18:30)
[2021-02-19] VITALS (7 sets, daily range): BP systolic 128–163; BP diastolic 91–109; PULSE 94–101; RESP 16–20; TEMP 36.6–36.8; O2SAT 96–100
[2021-02-19] MEDS: 0.9% Normal Saline 1,000 ML 150 ML IV ×2 (00:43→06:10)
[2021-02-19] MEDS: 0.9% Saline Lock 10 ML Syringe IV ×2 (00:43→00:46)
[2021-02-19 06:05] LABS: Absolute Lymphocyte Count 0.86 X10^3/uL (0.83-4.51); Absolute Neutrophil Count 2.2 X10^3/uL (2.0-7.7); Eosinophil# 0.01 X10^3/uL; Eosinophils% 0.3 % (0-5); Hematocrit 33.5 % (40-54); Hemoglobin 11.1 g/dL (13.0-16.5); Lymphocyte # 0.86 X10^3/ul (0.83-4.51); Lymphocyte % 23.2 % (19-41); Mean Corp Hgb Conc 33.1 g/dL (32-36); Mean Corpuscular Hgb 33.6 pg (27.0-32.0); Mean Corpuscular Volume 101.5 fL (80-94); Mean Platelet Vol. 10.1 fl (6.2-12.0); Monocyte% 16.2 % (0-10); NRBC Flagged by Analyzer 0 % (0-5); Neutrophil # 2.22 X10^3/uL (2.7-7.7); POSITIVE COUNT YES; Platelet Count 89 K/mm3 (150-450); RBC Distribution Width CV 12.6 % (11.6-14.6); RBC Distribution Width SD 47.5 fl (35.1-43.9); White Blood Count 3.7 K/mm3 (4.4-11.0)
[2021-02-19] MEDS: Phenobarbital 32.4 MG Tablet PO (06:07)
[2021-02-19] MEDS: Multivitamins,Therapeutic Tablet 1 TABLET PO (08:30)
[2021-02-19] MEDS: Thiamine Hydrochloride 100 MG Tablet PO (08:30)
[2021-02-19] MEDS: Folic Acid 1 MG Tablet PO (08:30)
[2021-02-19] MEDS: Lisinopril 20 MG Tablet PO (08:30)
[2021-02-19] MEDS: amLODIPine 5 MG Tablet PO (08:30)
[2021-02-19] MEDS: Metoprolol Tartrate 50 MG Tablet PO ×2 (08:31→22:34)
[2021-02-19] MEDS: predniSONE 20 MG Tablet PO (08:31)
--- NOTE | 2021-02-19 09:37 | ADDICTION ---
This health underwriter met with PT to conduct ASAM, MSE, AUDIT assessments and to plan for d/c. All assessments completed, faxed to [facility] and placed in PT's chart. PT refused d/c coordination and referral to f/u agency. This health underwriter provided resources to PT. No transportation needs identified.
--- NOTE | 2021-02-19 12:13 | CASEMGMT ---
Social Work Note Physician asked this worker to call pt's father to gain additional information. SW in to speak with pt. SW introduced self and role at [facility]. Pt appears to be alert and orientated. Pt confirms that he is currently living with his father and he will be returning there at discharge. SW asked pt if this worker could call his father and pt gave this worker permission to do so. SW placed a call to pt's father Geremias. NORAH introduced self and role at [facility]. Geremias confirms pt has been living with him and pt is able to return to his house at discharge. NORAH asked Geremias about pt's previous counseling. Geremias states pt has been linked up with 180 in the past and that pt had to sign a contract to get detoxed. NORAH explained that pt did sign [facility] contract and [facility] but pt refused any follow up referrals or appointments. Geremias asked about pt going to [facility]. NORAH explained [facility] and that it is a medical clinic for those that are uninsured. NORAH explained that pt is able to follow up with [facility] for any medical needs when pt leaves [facility]. NORAH asked Geremias about getting pt Medicaid. Geremias confirms pt has no insurance, states he has tried to get pt to get Medicaid but pt hasn't done so. SW informed Geremias that pt was given Medicaid Application again and even if pt can't make it to [facility], there is an 800 number that pt can call to complete application over the phone. Geremias states understanding. NORAH asked Geremias about pt's transportation home. Geremias states that either him or his girlfriend will be transporting pt home. Physician updated. Rachel Beal GOLD NIB GRINDER, TAX CONSULTANT
--- NOTE | 2021-02-19 12:51 | CHAPLAIN ---
Type of Pastoral Visit ___ Initial Visit _x__ Follow-up Visit ___ On-call Visit ___ General Patient Visit ___ Spiritual Assessment ___ Family Conference ___ Bereavement ___ Rapid Response ___ Code Blue ___ Other (describe below) Pastoral Care Referral From _x__ Patient ___ Family ___ Nurse ___ Physician ___ Sole Edge Inker Machine ___ Dice Table Person ___ Other (describe below) Sacrament/Intervention _x__ Active listening ___ Anointing ___ Pentecostal ___ Bereavement ___ Communion ___ Fior exploration ___ _x__ Life review _x__ Prayer ___ Reconciliation ___ Sacrament of Sick _x__ Supportive presence ___ Wedding ___ Other (describe below) Pastoral Comments patient is sitting in chair and more alert today; pt is shaky and slow to speak but does answer questions and when given time carries on a conversation; pt states that girlfriend broke up with me but that I would take her back; pt says that he lives with his father and will continue to do so and must take care of my three cats and one dog; pt has adult children that he does not see; pt says his father and a cousin are supportive of him; pt welcomes presence and prayer; this inspector eyeglass frames encouraged pt to continue his recovery
--- NOTE | 2021-02-19 15:28 | CASEMGMT ---
Social Work Note NORAH reviewed chart. Pt was assist of two with PT/OT today and used a walker. SW in to speak with pt. Pt is alert and orientated x3. SW asked pt since he was assist of two today if he feels he will be able to manage at home. Pt states he lives with people that are able to assist him (pt states his dad, dad's girlfriend, and pt's sister) all live with him and will be able to assist. SW asked pt about needing a walker, pt state he has two walkers at home that he will be able to use. Pt states that he has 1-2 steps to enter the home but states he can manage the steps. SW asked pt about going to SNF for rehabilitation and pt denied. Pt states he feels safe going home and will be returning home at discharge. Pt denied additional needs or concerns. Rachel Beal ALUMINA PLANT SUPERVISOR, TOE CLOSING MACHINE TENDER
--- NOTE | 2021-02-19 16:19 | CASEMGMT ---
Social Work Note NORAH asked to speak with pt's sister Tere. Tere states she has concerns with pt returning to their father's home since pt is assist of two and their father is in his 80s and just had a pacemaker placed. Tere also states that pt will just relapse when pt returns home. NORAH informed Tere that this worker understands her concerns but at this time, pt is alert and orientated and is own person and is able to make own decisions. Tere asked about pt going to SNF for therapy and then pt going to residential for substance use. NORAH explained that pt refused any coordination with [facility] and pt refused SNF. NORAH explained that pt is self pay and pt would be financially responsible for SNF or residential treatment for substance use. Tere states that pt was previously independent at home but within the last few weeks, pt became weaker and would have some falls at home. Tere asked if pt's current symptoms were related to his ETOH detox or if there could be something neurological going on. NORAH informed Tere that this worker is not sure, this worker is just a SW. NORAH informed Tere that this worker will speak with pt tomorrow again regarding SNF but also told Tere that pt may get better while at [facility] and could end up not needing as much assistance as he is now. Tere states understanding. Rachel Beal NETWORK DESIGN ARCHITECT, PEST CONTROLLER ASSISTANT
--- NOTE | 2021-02-19 18:16 | PCM.PROGNOTE ---
Patient Problems: Active and Suspected Problems (Last Updated 02/14/21 @ 15:[address] Demarco Terrell MD) Acute alcohol withdrawal (Acute) Subjective: Patient was seen and examined today, he still appears lethargic and somnolent at times, he was seen by addiction access services librarian today and he told them that he has no interest in pursuing any outpatient treatment for alcohol detox. I had initially thought about sending him home today but he is unsteady on his feet while walking and he lives with his father, access services librarian contacted his father and his father stated that he was ready anytime to pick him up but I do not feel comfortable with the patient going home today. I will remove any medications from his med list that would cause sedation and reevaluate him tomorrow. Objective: General: Patient is alert but at times is slow to answer questions HEENT: Atraumatic, PERRLA, EOMI, Normocephalic Oral: Moist Mucosa Neck: Supple, No JVD, No Nuchal Rigidity, Trachea Midline, Thyroid Normal Size and Texture Lungs: Clear to auscultation, Normal air movement, No rhonchi, No wheeze, No rales Cardiovascular: Regular rate, Regular Rhythm, Normal S1, Normal S2, No murmurs, PMI Normal, No rub noted, No Gallop Abdomen: Bowel Sounds Present, Soft, Non Tender, Non-Distended Extremities: Capillary Refill Less than 3 Seconds, - - Left knee was wrapped with Saravanan wrap- this was not removed for examination the area Skin: No rashes, No breakdown Musculoskeletal: No Tenderness to Palpation of Joints or Extremities Neurological: Cranial nerves II-XII grossly intact, Neuro grossly intact, Sensory exam intact to light touch and pain, Coordination normal Psych/Mental Status: Patient is alert at times but is slow to respond to questions - Physical Exam Vitals/I&O's: Vital Signs Temp Pulse Resp BP Pulse Ox 98 F 96 16 128/91 H 97 02/19/21 12:33 02/19/21 12:33 02/19/21 12:33 02/19/21 12:33 02/19/21 12:33 Oxygen Flow Rate (L/min) 2 Oxygen Delivery Method Room Air Weight: 79.7 kg Body Mass Index (BMI) 25.3 Intake and Output for Last 24 Hours 02/17/21 02/18/21 02/19/21 23:59 23:59 23:59 Intake Total 4938.46 / 5188.46 3800 / 3800 2940.0 / 2940.0 Output Total 0 / 0 Balance 4938.46 / 5188.46 3800 / 3800 2940.0 / 2940.0 Microbiology Past 72 Hours 02/17/21 11:20 Fluid - Synovial (joint) Gram Stain - Final 02/17/21 11:20 Fluid - Synovial (joint) Body Fluid Culture - Preliminary No growth-Final to follow 02/17/21 11:20 Fluid - Synovial (joint) Anaerobic Culture - Final No growth in 5 days. Laboratory Results 02/19/21 05:35: WBC 3.7 L, RBC 3.30 L, Hgb 11.1 L, Hct 33.5 L, MCV 101.5 H, MCH 33.6 H, MCHC 33.1, RDW Std Deviation 47.5 H, RDW Coeff of Philip 12.6, Plt Count 89 L, MPV 10.1, Immature Gran % (Auto) 0.300, Neut % (Auto) 60.0, Lymph % (Auto) 23.2, Kinney % (Auto) 16.2 H, Eos % (Auto) 0.3, Baso % (Auto) 0.0, Absolute Neuts (auto) 2.2, Absolute Lymphs (auto) 0.86, Nucleated RBC % 0 Current Medications Acetaminophen (Acetaminophen 325 Mg Tablet) 650 mg PO Q6H PRN PRN PRN Reason: Pain Score 1-10 Amlodipine Besylate (Amlodipine 5 Mg Tablet) 5 mg PO DAILY [facility] Last Admin: 02/19/21 08:30 Dose: 5 mg Documented by: Folic Acid (Folic Acid 1 Mg Tablet) 1 mg PO DAILY@0800 [facility] Last Admin: 02/19/21 08:30 Dose: 1 mg Documented by: Sodium Chloride () 250 mls @ 15 mls/hr IV .[id number] PRN PRN Reason: Saline Flush Lisinopril (Lisinopril 20 Mg Tablet) 20 mg PO DAILY [facility] Last Admin: 02/19/21 08:30 Dose: 20 mg Documented by: Metoprolol Tartrate (Metoprolol Tartrate 50 Mg Tablet) 50 mg PO BID [facility] Last Admin: 02/19/21 08:31 Dose: 50 mg Documented by: Multivitamins (Multivitamins,Therapeutic Tablet) [facility] Last Admin: 02/19/21 08:30 Dose: 1 tablet Documented by: Ondansetron HCl (Ondansetron 8 Mg Tablet) 8 mg PO Q8H PRN PRN PRN Reason: NAUSEA Prednisone (Prednisone 20 Mg Tablet) 20 mg PO DAILY@0800 [facility] Last Admin: 02/19/21 08:31 Dose: 20 mg Documented by: Sodium Chloride (0.9% Saline Lock 10 Ml Syringe) 10 - 40 ml IV UD PRN PRN Reason: SALINE FLUSH Last Admin: 02/19/21 00:46 Dose: 10 ml Documented by: Thiamine HCl (Thiamine Hydrochloride 100 Mg Tablet) [facility] Last Admin: 02/19/21 08:30 Dose: 100 mg Documented by: Trazodone HCl (Trazodone 100 Mg Tablet) 100 mg PO QHS PRN PRN PRN Reason: INSOMNIA Last Admin: 02/17/21 20:30 Dose: 100 mg Documented by: Medical Necessity - Tobacco Use Smoking Status: Unknown if ever smoked Assessment/Plan All Active Problems (Last Updated 02/14/21 @ 15:[address] Demarco Terrell MD) Acute alcohol withdrawal (Acute) #1 acute DTs-resolving at this time-I have decided to stop his phenobarbital and any medications that would cause sedation and evaluate the patient tomorrow. #2 chronic alcoholism #3 left knee gouty arthritis/effusion #4 alcoholic cirrhosis #5 essential hypertension #6 thrombocytopenia secondary to cirrhosis #7 alcoholic hepatitis-improving #8 Nonischemic cardiomyopathy-by history Inpatient E&M: 45452 Subs Hosp L2
[2021-02-19] MEDS: Acetaminophen 325 MG Tablet 650 MG PO (22:35)
[2021-02-19] MEDS: traZODone 100 MG Tablet PO (22:35)
[2021-02-20 02:00] VITALS: BP 148/90; PULSE 83; RESP 16; TEMP 36.4; O2SAT 97
[2021-02-20 07:05] LABS: Absolute Lymphocyte Count 1.09 X10^3/uL (0.83-4.51); Absolute Neutrophil Count 1.8 X10^3/uL (2.0-7.7); Eosinophil# 0.04 X10^3/uL; Eosinophils% 1.2 % (0-5); Hematocrit 28.7 % (40-54); Hemoglobin 9.7 g/dL (13.0-16.5); Lymphocyte # 1.09 X10^3/ul (0.83-4.51); Lymphocyte % 31.6 % (19-41); Mean Corp Hgb Conc 33.8 g/dL (32-36); Mean Corpuscular Hgb 34.4 pg (27.0-32.0); Mean Corpuscular Volume 101.8 fL (80-94); Mean Platelet Vol. 9.9 fl (6.2-12.0); Monocyte# 0.53 X10^3/uL; Monocyte% 15.4 % (0-10); NRBC Flagged by Analyzer 0 % (0-5); Neutrophil # 1.77 X10^3/uL (2.7-7.7); Neutrophil % 51.2 % (47-70); Platelet Count 147 K/mm3 (150-450); RBC Distribution Width CV 12.8 % (11.6-14.6); RBC Distribution Width SD 48.3 fl (35.1-43.9); Red Blood Count 2.82 M/mm3 (4.6-6.2); White Blood Count 3.5 K/mm3 (4.4-11.0)
[2021-02-20 07:36] VITALS: O2SAT 97
[2021-02-20 07:38] LABS: ALB/GLOB Ratio 0.6 RATIO (0.9-2.4); AST(SGOT) 134 U/L (15-37); Alanine Aminotransfer ALT/SGPT 105 U/L (16-61); Albumin, Serum 2.4 g/dL (3.2-5.0); Alkaline Phosphatase 118 U/L (45-117); Anion Gap 6 (5-15); BUN 7 mg/dL (7-18); BUN/Creat Ratio 10.2 RATIO (10-20); Calcium,Total 8.2 mg/dL (8.5-10.1); Chloride 101 mmol/L (98-107); Creatinine, Serum 0.69 mg/dL (0.70-1.30); EST Glomerular Filtration Rate 128 mL/min (>60); Est Glom Filt Rate - Afr Amer 155 mL/min (>60); Estimated Creatinine Clearance 122.39 ml/min; Glucose 87 mg/dL (74-106); Protein, Total 6.4 g/dL (6.4-8.2); Sodium Level 134 mmol/L (136-145)
[2021-02-20 10:20] VITALS: BP 121/85; PULSE 107; RESP 18; TEMP 36.8; O2SAT 97
[2021-02-20] MEDS: predniSONE 20 MG Tablet PO (10:24)
[2021-02-20] MEDS: Multivitamins,Therapeutic Tablet 1 TABLET PO (10:24)
[2021-02-20 10:25] VITALS: PULSE 107
[2021-02-20] MEDS: Lisinopril 20 MG Tablet PO (10:25)
[2021-02-20] MEDS: amLODIPine 5 MG Tablet PO (10:25)
[2021-02-20] MEDS: Thiamine Hydrochloride 100 MG Tablet PO (10:25)
[2021-02-20] MEDS: Folic Acid 1 MG Tablet PO (10:25)
[2021-02-20] MEDS: Metoprolol Tartrate 50 MG Tablet PO (10:25)
--- NOTE | 2021-02-20 11:30 | CASEMGMT ---
Social Work Note SW reviewed PT/OT, pt still assist of two. SW in to speak with pt. SW spoke with pt about how pt is still assist of two with therapy and pt will need two people assist 24/05. Pt states that he lives with his father and his father's girlfriend who will be able to assist. SW asked pt if he was having falls at home before coming to [facility] and pt states just one. SW asked pt if he was intoxicated when he fell and pt stated probably. SW asked pt about going to SNF and that this worker can assist pt with completing medicaid application and pt could go to SNF under pending medicaid. Pt denied SNF. SW expressed safety concerns with pt with pt still being an assist of two and pt states he will be returning home. SW asked pt if this worker could call his father Geremias again. Pt gave this worker permission to call his father Geremias. SW placed a call to pt's father Geremias. Geremias states the last two days before pt came to [facility] he was needing increased assistance but before that pt was able to manage on his own. Geremias states that he spoke with his other son and daughter who stated pt needed to complete the detox program before pt could return home. SW explained that pt has completed detox before, pt signed [facility] contract, pt refused any follow up appointments with [facility] or any agencies. Geremias states understanding. NORAH spoke with Geremias about how pt is assist of two at this time. Geremias states he just had a pacemaker placed, he is not able to lift anything more than 8 pounds. NORAH explained that pt will need assist of two. Geremias asked what pt's options are. NORAH explained that pt could go to SNF for therapy but pt is refusing. Geremias asked about help in the home. NORAH educated Geremias on HHC. NORAH explained that HHC will also be self-pay for pt as pt has no insurance. Geremias asked for prices for HHC. Geremias also asked that this worker try and get pt to complete Medicaid Application as pt either needs to complete it while he is at [facility] or he will be completing it at home. SW back in to speak with pt. SW updated pt that this worker called his father Geremias and Geremias is stating he had a pacemaker placed and cannot lift more than 8 pounds. SW informed pt that Geremias will not be able to assist him at home. SW also informed pt that Geremias wants pt to complete Medicaid Application while he is at [facility]. Pt agreeable to completing Medicaid Application. Pt completed Medicaid Application. NORAH asked pt again if he would consider going to SNF for a few days of therapy before returning home and again pt denied. SW asked pt if it was fair to his father to have pt return home right now with pt being assist of two. Pt states I will get better. NORAH spoke with pt about [facility] for therapy. Pt agreeable to [facility]. NORAH explained will call around to get prices and make referrals. Pt states understanding. SW spoke with RN ISABEL. Prices for [facility] are the following. [facility]: $183.16 per visit. [facility]: Initial Visit and Evaluation $95 and additional visits $75. [facility]: $160-170 per visit. NORAH placed a call to pt's father Geremias and updated him that pt completed Medicaid Application and this worker can fax Application to [facility]. NORAH spoke with Geremias regarding private pay costs for the [facility] that will take private pay ( [facility], [facility], and [facility].) SW verbally provided a list of C providers including quality and resource use data and consistent with the patient?s preferred geographic region, medical needs, and insurance network. Geremias states that his preferred provider is [facility]. SW in to speak with pt. SW updated pt that Medicaid Application was faxed, SW provided pt with original Medicaid Application. SW informed pt that Geremias wants [facility] for pt. Patient was provided a list of C providers including quality and resource use data and consistent with the patient?s preferred geographic region, medical needs, and insurance network. SW provided pt with private pay costs of HHC companies. Pt agreeable to [facility] as well. NORAH explained [facility] will follow up with pt once he leaves [facility] to arrange appointments. Pt states understanding. Pt denied additional needs or concerns at this time. Plan: Home with [facility] for PT/OT Rachel Beal NECK FITTER, LEASING DIRECTOR
--- NOTE | 2021-02-20 12:11 | CASEMGMT ---
RN ISABEL notified that pt interested in HH therapy. NORAH Lagos made aware [facility] was chosen. TC to [facility], spoke with Rosa M and made referral. Faxed info at this time.
[2021-02-20 15:33] VITALS: BP 140/104; PULSE 104; RESP 16; TEMP 36.7; O2SAT 99
--- NOTE | 2021-02-20 17:52 | DCINST_ITS ---
- Discharge Diagnoses Current Active Problems: Current Active and Chronic Problems (Last Updated 02/14/21 @ 15:[address] Demarco Terrell MD) Alcohol abuse (Chronic) Thrombocytopenia (Chronic) Acute alcohol withdrawal (Acute) Essential (primary) hypertension (Chronic) Nonrheumatic mitral (valve) prolapse (Chronic) Nonischemic cardiomyopathy (Chronic) You will use the following diet at home:: No restrictions Your food should be the consistency of: Regular Your liquids should be the consistency of: Regular/Thin Discharge Activity: Return to Normal Activity Weight Bearing Status: Full weight bearing Additional Instructions: do not drink alcohol Allergies/Adverse Reactions: Allergies No Known Allergies Allergy (Verified 02/14/21 14:25) Medications to take at Discharge Amlodipine [Norvasc] 5 mg PO DAILY #30 tablet 02/20/21 Lisinopril [Zestril] 20 mg PO DAILY #30 tablet 02/20/21 Metoprolol Tartrate [Lopressor (beta lexi)] 50 mg PO BID #60 tablet 02/20/21 predniSONE tablet 20 mg PO DAILY@0800 #7 tablet 02/20/21 The following prescriptions were given: Metoprolol Tartrate [Lopressor (beta lexi)] 50 mg PO BID #60 tablet Transmission Status: Pending to [facility] #30 Amlodipine [Norvasc] 5 mg PO DAILY #30 tablet Transmission Status: Pending to [facility] #30 predniSONE tablet 20 mg PO DAILY@0800 #7 tablet Transmission Status: Pending to [facility] #30 Lisinopril [Zestril] 20 mg PO DAILY #30 tablet Transmission Status: Pending to [facility] #30 Primary Care Physician: Care Physician,No Primary [Primary Care Provider] - Please follow up with your Primary Care Physician in: in two weeks Test Results: Test results from this visit will be discussed in further detail at your follow- up appointment, if applicable.
--- NOTE | 2021-02-21 09:21 | CASEMGMT ---
TC to [facility] to make aware that pt dc'd lastnight. Faxed dc instructions at this time.
--- NOTE | 2021-02-21 19:41 | DS.PCM_ITS ---
Discharge Date and Diagnosis - Problem List Patient Problems: Active and Suspected Problems (Last Updated 02/14/21 @ 15:[address] Demarco Terrell MD) Acute alcohol withdrawal (Acute) Date of Admission: 02/14/21 Date of Discharge: 02/20/21 - Primary Discharge Diagnosis Acute Problems: Active Problems (Last Updated 02/14/21 @ 15:[address] Demarco Terrell MD) #1 acute DTs #2 chronic alcoholism #3 left knee gouty arthritis/effusion #4 alcoholic cirrhosis #5 essential hypertension #6 thrombocytopenia secondary to cirrhosis #7 alcoholic hepatitis #8 Nonischemic cardiomyopathy - Secondary Discharge Diagnosis Chronic Problems: Chronic Problems (Last Updated 02/14/21 @ 15:[address] Demarco Terrell MD) Alcohol abuse (Chronic) Thrombocytopenia (Chronic) Essential (primary) hypertension (Chronic) Nonrheumatic mitral (valve) prolapse (Chronic) Nonischemic cardiomyopathy (Chronic) Hospital Course and Treatment Operations: None Procedures: None Summary of Care Provided: The patient is a 56 year old M was seen in the emergency room at [facility] requesting detox from alcohol. Work-up in the emergency room revealed hemoglobin of 12.9, platelet count 23,000, BMP was unremarkable. Liver function tests reveal a bilirubin of 2.2, AST 141, ALT of 97, and alkaline phosphatase of 87. Urine drug screen was negative, blood alcohol level was less than 3. EKG revealed a sinus tachycardia. Patient was found to be hypertensive. Patient was admitted to [facility] initially, patient was given Ativan and phenobarbital but continued to have significant tremors and the patient was transferred to the ICU for further care and was seen in consultation by critical care. Patient stabilized in the ICU and was transferred out to the floor but then had to be transferred today later back into the ICU for increasing withdrawal symptoms including DTs. Patient was placed on Precedex. Patient finally stabilized in the ICU and was transferred out to [facility] 3, his phenobarbital was decreased due to excessive sedation. Patient was seen in consultation by orthopedic surgery due to a left knee effusion, fluid was tapped which indicated the patient had gouty arthritis and he was placed on p.o. prednisone. Addiction social security assessor talked with the patient, he refused any follow-up appointments and stated he did not desire any outpatient detox services. Patient's blood pressure medications were adjusted during his hospitalization. On 02/20/2021, patient was seen and examined:General: Patient is alert but at times is slow to answer questions HEENT: Atraumatic, PERRLA, EOMI, Normocephalic Oral: Moist Mucosa Neck: Supple, No JVD, No Nuchal Rigidity, Trachea Midline, Thyroid Normal Size and Texture Lungs: Clear to auscultation, Normal air movement, No rhonchi, No wheeze, No rales Cardiovascular: Regular rate, Regular Rhythm, Normal S1, Normal S2, No murmurs, PMI Normal, No rub noted, No Gallop Abdomen: Bowel Sounds Present, Soft, Non Tender, Non-Distended Extremities: Capillary Refill Less than 3 Seconds, - - Left knee was wrapped with Saravanan wrap- this was not removed for examination the area Skin: No rashes, No breakdown Musculoskeletal: No Tenderness to Palpation of Joints or Extremities Neurological: Cranial nerves II-XII grossly intact, Neuro grossly intact, Sensory exam intact to light touch and pain, Coordination normal Psych/Mental Status: Patient is alert at times but is slow to respond to questions Patient was discharged on 02/20/2021 to home in stable condition, I briefly talked with his father who the patient lives with prior to his discharge home and explained that the patient refused any outpatient alcohol detox services, his father told me on the phone that he would not be able to live at his home if he did not quit drinking and follow-up with detox services. Patient Problems: Active and Suspected Problems (Last Updated 02/14/21 @ 15:[address] Demarco Terrell MD) Acute alcohol withdrawal (Acute) - Physical Exam Vitals/I&O's: Vital Signs Temp Pulse Resp BP Pulse Ox 98.1 F 104 H 16 140/104 H 99 02/20/21 15:33 02/20/21 15:33 02/20/21 15:33 02/20/21 15:33 02/20/21 15:33 Oxygen Flow Rate (L/min) 2 Oxygen Delivery Method Room Air Weight: 80.4 kg Body Mass Index (BMI) 25.3 Intake and Output for Last 24 Hours 02/19/21 02/20/21 02/21/21 23:59 23:59 23:59 Intake Total 2940.0 / 2940.0 Output Total 600 / 600 Balance 2940.0 / 2690.0 -600 / -600 Microbiology Past 72 Hours 02/17/21 11:20 Fluid - Synovial (joint) Gram Stain - Final 02/17/21 11:20 Fluid - Synovial (joint) Body Fluid Culture - Preliminary No growth-Final to follow 02/17/21 11:20 Fluid - Synovial (joint) Anaerobic Culture - Final No growth in 5 days. Discharge Activity: Return to Normal Activity Weight Bearing Status: Full weight bearing Home Medications: Medications to take at Discharge Amlodipine [Norvasc] 5 mg PO DAILY #30 tablet 02/20/21 Lisinopril [Zestril] 20 mg PO DAILY #30 tablet 02/20/21 Metoprolol Tartrate [Lopressor (beta lexi)] 50 mg PO BID #60 tablet 02/20/21 predniSONE tablet 20 mg PO DAILY@0800 #7 tablet 02/20/21 Following Prescriptions Were Given to Patient: Metoprolol Tartrate [Lopressor (beta lexi)] 50 mg PO BID #60 tablet Transmission Status: Received by [facility] #30 Amlodipine [Norvasc] 5 mg PO DAILY #30 tablet Transmission Status: Received by [facility] #30 predniSONE tablet 20 mg PO DAILY@0800 #7 tablet Transmission Status: Received by [facility] #30 Lisinopril [Zestril] 20 mg PO DAILY #30 tablet Transmission Status: Received by [facility] #30 Primary Care Physician: Care Physician,No Primary [Primary Care Provider] - Please follow up with your Primary Care Physician in: in two weeks Disposition: Home Minutes spent on discharge:: 31 Patient Condition:: Stable Medical Necessity - Tobacco Use Smoking Status: Unknown if ever smoked Meaningful Use Info Meaningful Use Diagnoses (Choose all that apply): None applicable Inpatient E&M: 24174 Disch Hosp
== END 2021-02-20 19:14 | disposition home or self-care (01) | DRG 897 ==
LOC: ED 15:04 → MS3 16:31 → ICU 17:07 → PCU 02-15 13:28 → ICU 02-16 09:29 → MS3 02-17 15:44
PROVIDERS: Orthopaedic Surgery; Admitting Provider Hospitalist; Emergency Provider Emergency Medicine; Visit Provider Internal Medicine
DX: F10.231 Alcohol dependence with withdrawal delirium (principal); I42.8 Other cardiomyopathies; M25.462 Effusion, left knee; M10.9 Gout, unspecified; K70.30 Alcoholic cirrhosis of liver without ascites; D69.59 Other secondary thrombocytopenia; K70.10 Alcoholic hepatitis without ascites; I10 Essential (primary) hypertension; Z87.891 Personal history of nicotine dependence; Z91.14 Patient's other noncompliance with medication regimen; I16.0 Hypertensive urgency
CPT/HCPCS: 36415; 73564; 80053; 80307; 82077; 82140; 83690; 83735; 85025; 85610; 87070; 87075; 87102; 87205; 87206; 89050; 89051; 89060; 93005; 96360; 96361; 97110; 97116; 97162; 97166; 97530; 97535; 97802; 99285; J7030; J7050; A4216; J3490

== ENCOUNTER 2021-04-08 11:33 | Outpatient (RCR) | payer MEDICAID, SELFPAY ==
[2021-04-02 07:53] VITALS: BMI 25.3
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
--- NOTE | 2021-06-12 12:10 | HP.PT.NRP ---
HAI MCFADDEN was seen in my office for initial evaluation on 04/08/21. The following Plan of Care was established for this patient: Initial Frequency: 1-2x /Week Initial Duration: 2-4 Weeks Patient/Client Instruction: Educate patient on: Condition, Plan of Care For the Purpose of:: To decrease pain, To improve muscle performance and motor function Therapeutic Exercise to Include: Strength training, Flexibilty training For the Purpose of:: To decrease pain, To improve nutrient delivery to tissue, To improve muscle performance and motor function This patient was last seen in our office 04/08/21. Pertinent comments regarding their Physical therapy will appear below: Pt seen for initial evaluation adn plan of care established. Pt did not schedule or attend any further visits. at this point, it has been over two months adn i will discontinue due to nonattendance. At this point I will be discontinuing this patient from physical therapy. I would be happy to see this patient again in the future if found appropriate by the physician. Thank you! Steven Galdamez, DPT, OCS, CSCS Balance/Gait/Functional tests - Balance/Special Test Scores Functional Gait Assessment Score: 26 % Disability: 13.3400 Lower Extremity Functional Score: 29
== END 2021-04-08 19:00 | disposition home or self-care (01) ==
LOC: PT 11:33
PROVIDERS: Referring Provider Orthopaedic Surgery; Visit Provider Orthopaedic Surgery
DX: M25.562 Pain in left knee (principal); M10.9 Gout, unspecified; R53.1 Weakness
CPT/HCPCS: 97161

== ENCOUNTER 2021-04-11 17:11 | Emergency (ER) | payer MEDICAID, SELFPAY ==
[2021-04-02 07:53] VITALS: BMI 25.3
[2021-04-11 17:12] VITALS: BP 82/61; PULSE 132; RESP 22; TEMP 36.6; O2SAT 97; BMI 26.4
[2021-04-11 17:16] VITALS: BP 82/61; PULSE 132; RESP 22; TEMP 36.6; O2SAT 97
--- NOTE | 2021-04-11 17:20 | EKG12_ITS ---
Test Reason : OVERHEATED Blood Pressure : / mmHG Vent. Rate : 117 BPM Atrial Rate : 117 BPM P-R Int : 174 ms QRS Dur : 102 ms QT Int : 318 ms P-R-T Axes : 013 008 036 degrees QTc Int : 443 ms Sinus tachycardia Otherwise normal ECG Confirmed by LATRICIA DALY, MARCY ([id number]), editor book ART OBREIN ([id number]) on 04/14/2021 1:35:39 PM Referred By: Confirmed By:MARCY ROME MD
--- NOTE | 2021-04-11 17:27 | EX.ED.DYSGE1 ---
HPI History of Present Illness Chief Complaint: Syncope Informant: patient Narrative Narrative: 56-year-old male presents to the emergency department via EMS after syncopal episode. Patient states that he has not had anything to eat today. He states he has been drinking water. He was riding his bicycle buying some vodka when he felt like he was going to pass out. So he got off his bike and laid down on the grass. The next thing he remembers EMS was bringing him to the hospital. Noted to be tachycardic and hypotensive during triage. Patient denies any chest pain. He denies any pain at this current time. He states he is currently not treated for any medical problems. He does note that he has a history of alcoholism [facility] Medical History Alcoholic hepatitis Alcoholism /alcohol abuse Chewing tobacco use Essential (primary) hypertension Nonischemic cardiomyopathy Nonrheumatic mitral (valve) prolapse Pancytopenia Home Medications amlodipine 5 mg PO DAILY #30 tablet 02/20/21 [Rx Last Taken Unknown] lisinopril 20 mg PO DAILY #30 tablet 02/20/21 [Rx Last Taken Unknown] metoprolol tartrate 50 mg PO BID #60 tablet 02/20/21 [Rx Last Taken Unknown] prednisone 20 mg PO DAILY@0800 #7 tablet 02/20/21 [Rx Last Taken Unknown] Allergy/AdvReac Type Severity Reaction Status Date / Time No Known Allergies Allergy Verified 02/14/21 14:25 Family History (Updated 07/12/20 @ 11:17 by Janet Black) Grandfather Myocardial infarction Uncle Myocardial infarction Mother Cancer Father Cancer Surgical History History of left heart catheterization (04/11/19) Social History household members: other details: dad Smoking Status: Former smoker Tobacco: How many years used: 20 Smokeless tobacco user: chewing tobacco alcohol intake: current alcohol intake frequency: 3 or more drinks per day Alcohol type: beer details: 6 drinks daily, 36 per week. substance use type: marijuana what type of physical activity do you participate in: bicycling frequency: 1-2 times per week do you feel safe at home: Yes ROS ROS ED Constitutional Constitutional ED: Denies chills or weight loss Eyes Eyes: Denies change in vision or diplopia ENT ENT ED: Denies ear pain, rhinorrhea or sore throat Cardiovascular Cardiovascular: Reports racing heartbeat and other Details: Syncope ; Denies chest pain, orthopnea or palpitations Respiratory/Chest Respiratory/Chest: Denies cough, dyspnea or orthopnea Gastrointestinal Gastrointestinal: Denies abdominal pain, diarrhea, nausea or vomiting Genitourinary Genitourinary ED: Denies dysuria, hematuria or urinary frequency Musculoskeletal Musculoskeletal: Denies arthralgias or myalgias Integumentary Denies abscess or rash Neurologic Neurologic: Denies headache(s) or weakness Psychiatric Psychiatric: Denies anxiety, depression, suicidal ideation or suicidal thoughts Endocrine Endocrinology: Denies polydipsia, polyphagia or polyuria Allergic/Immunologic Allergic/Immunologic ED: Denies mouth swelling, tongue swelling or urticaria EXAM Physical Exam Const Vital Signs: 04/11/21 17:12 04/11/21 17:16 04/11/21 17:20 Temperature 97.9 F 97.9 F Temperature Source Oral Oral Pulse Rate 132 H 132 H Pulse Rate [Lying] Pulse Rate [Sitting] Pulse Rate [Standing] Respiratory Rate 22 H 22 H Respiratory Effort Normal Non-Labored Blood Pressure 82/61 L 82/61 L Blood Pressure [Lying] Blood Pressure [Sitting] Blood Pressure [Standing] Blood Pressure Mean 68 68 Blood Pressure Mean [Lying] Blood Pressure Mean [Sitting] Blood Pressure Mean [Standing] Pulse Ox 97 97 Oxygen Delivery Method Room Air Room Air Room Air 04/11/21 18:34 04/11/21 19:13 04/11/21 19:21 Temperature Temperature Source Pulse Rate 115 H 104 H Pulse Rate [Lying] 102 H Pulse Rate [Sitting] 104 H Pulse Rate [Standing] 128 H Respiratory Rate 16 14 Respiratory Effort Blood Pressure 102/73 98/80 Blood Pressure [Lying] 107/72 Blood Pressure [Sitting] 110/85 H Blood Pressure [Standing] 108/82 H Blood Pressure Mean 82 86 Blood Pressure Mean [Lying] 83 Blood Pressure Mean [Sitting] 93 Blood Pressure Mean [Standing] 90 Pulse Ox 97 99 Oxygen Delivery Method Room Air Room Air Positive well nourished and well developed General Appearance ED: well developed HEENT Reports normocephalic, head/scalp atraumatic and moist mucous membranes Eyes PERRL and EOMs intact bilaterally Neck no lymphadenopathy, supple and no JVD Resp normal respiratory effort and clear to auscultation bilaterally Cardio regular rate and no murmurs Rate: tachycardic GI normal to inspection, nondistended, normoactive bowel sounds and non-tender Palpation: soft Back/Spine no CVA tenderness and normal ROM Extremity normal to inspection General Extremety ED: Negative for edema General Extremity: Negative for edema Neuro oriented x3 and CN's II-XII intact bilaterally Sensorium / Orientation: alert Motor Exam: strength 5/5 throughout Psych mental status grossly normal Mood & Affect: Negative for depressed or tearful Skin no rashes or lesions noted and no wounds Skin Narrative: Diaphoresis noted MDM MDM MDM Narrative Medical decision making narrative: My interpretation of the chest x-ray is no acute process. Patient appears to be significantly dehydrated with evidence of acute renal failure with a creatinine now of 3.5. His lactic acid is elevated at 4.8. His alcohol is negative and his acetone is negative. He has a CO2 of 17 and anion gap of 21. Patient received 3+ liters of IV fluids. His heart rate has come down now in the 90s. His blood pressure has stabilized. He does not appear under the influence of any substances. He does not wish to stay in the hospital. He does not wish to give me the reason why. But it does appear at this time that he has capacity to make this decision. He will sign out AMA Lab Data Attestation: I reviewed the patient's lab results. Labs: Laboratory Results - last 24 hr 04/11/21 04/11/21 04/11/21 17:43 17:43 17:43 WBC 11.6 H RBC 4.38 L Hgb 14.5 Hct 43.0 MCV 98.2 H MCH 33.1 H MCHC 33.7 RDW Std Deviation 53.2 H RDW Coeff of Philip 14.8 H Plt Count 74 L MPV 11.2 Immature Gran % (Auto) 0.700 Neut % (Auto) 79.9 H Lymph % (Auto) 14.8 L Mckenzie % (Auto) 4.3 Eos % (Auto) 0.1 Baso % (Auto) 0.2 Absolute Neuts (auto) 9.3 H Absolute Lymphs (auto) 1.71 Nucleated RBC % 0 Platelet Estimate MOD DEC RBC Morphology NORM C+C Sodium 134 L Potassium 3.7 Chloride 96 L Carbon Dioxide 17.0 L Anion Gap 21 H BUN 34 H Creatinine 3.50 H Estim Creat Clear Calc 24.13 Est GFR (MDRD) Af Amer 24 L Est GFR (MDRD) Non-Af 20 L BUN/Creatinine Ratio 9.7 L Glucose 173 H Lactic Acid Calcium 9.7 Total Bilirubin 1.00 AST 64 H ALT 67 H Alkaline Phosphatase 54 Troponin I < 0.015 Total Protein 7.6 Albumin 3.7 Globulin 3.9 Albumin/Globulin Ratio 0.9 Ethyl Alcohol < 3.0 Acetone Level 04/11/21 04/11/21 18:30 18:30 WBC RBC Hgb Hct MCV MCH MCHC RDW Std Deviation RDW Coeff of Philip Plt Count MPV Immature Gran % (Auto) Neut % (Auto) Lymph % (Auto) Mckenzie % (Auto) Eos % (Auto) Baso % (Auto) Absolute Neuts (auto) Absolute Lymphs (auto) Nucleated RBC % Platelet Estimate RBC Morphology Sodium Potassium Chloride Carbon Dioxide Anion Gap BUN Creatinine Estim Creat Clear Calc Est GFR (MDRD) Af Amer Est GFR (MDRD) Non-Af BUN/Creatinine Ratio Glucose Lactic Acid 4.8 H* Calcium Total Bilirubin AST ALT Alkaline Phosphatase Troponin I Total Protein Albumin Globulin Albumin/Globulin Ratio Ethyl Alcohol Acetone Level NEGATIVE Radiography Diagnostic Testing: Radiology Impression Chest X-Ray 04/11/21 17:57 IMPRESSION: Small focal opacity in the right midlung, probably artifactual. Recommend repeating with improved inspiratory effort frontal technique for confirmation of this finding. Electronically Signed: Ena King MD at 18:45 EDT Tel , Service support , EKG Initial EKG: Attestation: I personally reviewed and interpreted this EKG as follows: Comments: EKG demonstrates a sinus tachycardia at a rate of 117 Critical Care Time Critical Care Time: Yes Critical care time (excluding procedures): 30-74 minutes (35 MINUTES), Including time spent:, Discussing w/Patient &/or Family/Cloud Developer, Discussing w/Consultants and Performing Direct Patient Care at Bedside Discharge Plan Triage Chief Complaint: Syncope ED Provider: Cleveland Powell Dx/Rx/DC Orders Clinical Impression: Acute renal failure, Acute dehydration, Syncope and collapse, Hypovolemic shock, Metabolic acidosis Instructions: ED Dehydration (Adult) Prescriptions: No Action lisinopril 20 MG tablet 20 mg PO DAILY Qty: 30 RF: 0 prednisone 20 MG tablet 20 mg PO DAILY@0800 Qty: 7 RF: 0 amlodipine 5 MG tablet 5 mg PO DAILY Qty: 30 RF: 0 metoprolol tartrate 50 MG tablet 50 mg PO BID Qty: 60 RF: 0 Primary Care Provider: Care Physician,No Primary Referrals: Hunter Burton DO [STAFF PHYSICIAN] - As soon as possible (FOR PRIMARY CARE) Care Physician,No Primary [Primary Care Provider] - Disposition Disposition: Against Medical Advice Capacity Capacity Assessment Tool Can the patient make a choice & communicate that choice?: Yes Can the patient understand benefits, risks and alternatives?: Yes Can the patient make a logical, rational choice?: Yes Is the choice the patient makes consistent w/ their values?: Yes Is there an impending, emergent risk to the patient?: Yes Does the patient have an Advance Directive?: No Is there a Surrogate Available?: No i.e. HCPOA: No i.e. close relative (spouse, child, parent, sibling)?: No
[2021-04-11 17:55] LABS: Absolute Lymphocyte Count 1.71 X10^3/uL (0.83-4.51); Absolute Neutrophil Count 9.3 X10^3/uL (2.0-7.7); Basophil# 0.02 X10^3/uL; Basophil% 0.2 % (0-1); Eosinophil# 0.01 X10^3/uL; Eosinophils% 0.1 % (0-5); Hemoglobin 14.5 g/dL (13.0-16.5); Lymphocyte # 1.71 X10^3/ul (0.83-4.51); Lymphocyte % 14.8 % (19-41); Mean Corp Hgb Conc 33.7 g/dL (32-36); Mean Corpuscular Hgb 33.1 pg (27.0-32.0); Mean Corpuscular Volume 98.2 fL (80-94); Mean Platelet Vol. 11.2 fl (6.2-12.0); Monocyte% 4.3 % (0-10); NRBC Flagged by Analyzer 0 % (0-5); Neutrophil # 9.25 X10^3/uL (2.7-7.7); Neutrophil % 79.9 % (47-70); POSITIVE COUNT YES; Platelet Count 74 K/mm3 (150-450); RBC Distribution Width CV 14.8 % (11.6-14.6); RBC Distribution Width SD 53.2 fl (35.1-43.9); Red Blood Count 4.38 M/mm3 (4.6-6.2); White Blood Count 11.6 K/mm3 (4.4-11.0)
--- NOTE | 2021-04-11 17:57 | RAD_ITS ---
STUDY: X-RAY CHEST REASON FOR EXAM: Male, 56 years old. syncope TECHNIQUE: Frontal portable view of the chest COMPARISON: 10 April 2019 FINDINGS: There is focal small opacity in the right medial mid lung zone, likely superimposition of normal lung markings on the rib. There is no demonstrated pleural abnormality. There are benign calcified lymph nodes Normal size heart. Normal mediastinum and joseph. Normal visualized pulmonary arteries. Normal visualized aortic arch and descending thoracic aorta. Normal visualized thoracic spine. Normal visualized ribs, clavicles, and shoulders. There is no demonstrated abnormality of the visualized soft tissue structures of the upper abdomen. RAD/Chest 1 View (Portable) IMPRESSION: Small focal opacity in the right midlung, probably artifactual. Recommend repeating with improved inspiratory effort frontal technique for confirmation of this finding. Electronically Signed: Ena King MD at 18:45 EDT Tel , Service support ,
[2021-04-11 18:07] LABS: Differential Indicated SCAN CRITERIA MET
[2021-04-11 18:10] LABS: ALB/GLOB Ratio 0.9 RATIO (0.9-2.4); AST(SGOT) 64 U/L (15-37); Alanine Aminotransfer ALT/SGPT 67 U/L (16-61); Albumin, Serum 3.7 g/dL (3.2-5.0); Alkaline Phosphatase 54 U/L (45-117); Anion Gap 21 (5-15); BUN 34 mg/dL (7-18); BUN/Creat Ratio 9.7 RATIO (10-20); Calcium,Total 9.7 mg/dL (8.5-10.1); Chloride 96 mmol/L (98-107); EST Glomerular Filtration Rate 20 mL/min (>60); Est Glom Filt Rate - Afr Amer 24 mL/min (>60); Estimated Creatinine Clearance 24.13 ml/min; Globulin 3.9 g/dL (2.2-4.2); Glucose 173 mg/dL (74-106); Potassium 3.7 mmol/L (3.5-5.1); Protein, Total 7.6 g/dL (6.4-8.2); Sodium Level 134 mmol/L (136-145)
[2021-04-11 18:27] LABS: Alcohol, Blood (Medical)-Serum < 3.0 mg/dL
[2021-04-11 18:34] VITALS: BP 102/73; PULSE 115; RESP 16; O2SAT 97
[2021-04-11 18:37] LABS: Platelet Estimate MOD DEC (ADEQ); Red Cell Morphology NORM C+C NORMAL (NORM C&C)
[2021-04-11] MEDS: 0.9% Normal Saline 1,000 ML 1000 ML IV ×2 (18:47→19:27)
[2021-04-11 19:13] VITALS: BP 98/80; PULSE 104; RESP 14; O2SAT 99
[2021-04-11 19:21] VITALS: BP 107/72; BP 108/82; BP 110/85; PULSE 102; PULSE 104; PULSE 128
[2021-04-11 19:36] LABS: Lactic Acid 4.8 mmol/L (0.4-1.9)
[2021-04-11 20:21] VITALS: BP 127/86; PULSE 104; RESP 14; O2SAT 97
--- NOTE | 2021-04-11 20:21 | ED.RN ---
pt signed out ama. pt was explained that the hospital is 24 hours a day 7 days a week. if he needs to return he is alchaunceyys welcome. laverne rhodes rn 2021
[2021-04-11 22:56] LABS: Reflex Lactate? Y
== END 2021-04-11 20:23 | disposition left against medical advice (07) ==
PROVIDERS: Emergency Provider Emergency Medicine
DX: N17.9 Acute kidney failure, unspecified (principal); E86.0 Dehydration; R55 Syncope and collapse; R57.1 Hypovolemic shock; E87.2 Acidosis; I10 Essential (primary) hypertension; Z79.899 Other long term (current) drug therapy; Z87.891 Personal history of nicotine dependence
CPT/HCPCS: 71045; 80053; 82009; 82077; 83605; 84484; 85025; 93005; 96360; 99285; J7030; A4216

== ENCOUNTER 2021-05-06 15:52 | Emergency (ER) | payer MEDICAID, SELFPAY ==
[2021-05-06 15:53] VITALS: BP 109/64; PULSE 94; RESP 18; TEMP 36.9; O2SAT 93; BMI 25.2
--- NOTE | 2021-05-06 16:10 | EKG12_ITS ---
Test Reason : SEIZURE Blood Pressure : / mmHG Vent. Rate : 091 BPM Atrial Rate : 091 BPM P-R Int : 218 ms QRS Dur : 102 ms QT Int : 388 ms P-R-T Axes : 022 -03 008 degrees QTc Int : 477 ms Sinus rhythm with 1st degree A-V block Otherwise normal ECG Confirmed by LATRICIA DALY, MARCY ([id number]), pictures editor KERI CARPENTER ([id number]) on 05/07/2021 2:22:21 PM Referred By: TEO Confirmed By:MARCY ROME MD
--- NOTE | 2021-05-06 16:10 | CT_ITS ---
STUDY: CT BRAIN WITHOUT CONTRAST REASON FOR EXAM: Male, 56 years old. Syncope, seizure RADIATION DOSAGE (If Supplied By Facility): CTDIvol = ( 44.99 ) mGy, DLP = ( 883.29 ) mGycm TECHNIQUE: Transaxial CT imaging of the brain was performed without administration of intravenous contrast material. Individualized dose optimization techniques were used for this CT. COMPARISON: 04/07/2019 FINDINGS: Normal soft tissue structures. Normal calvarium. Normal size ventricles and extra-axial spaces for the patient''s age. Normal white matter tracts of the cerebral hemispheres. Normal basal ganglia and thalami. Normal brainstem. Normal cerebellum. There is no intracranial hemorrhage. There are no findings of an acute ischemic infarction. Normal visualized paranasal sinuses. CT/Brain/Head without Contrast IMPRESSION: Normal unenhanced CT scan of the brain. Electronically Signed: Chu Gleason MD at 17:18 EDT , Service support ,
--- NOTE | 2021-05-06 16:13 | EDS_ITS ---
HPI History of Present Illness Chief Complaint: Seizure Detail of Chief Complaint: In copy or possible seizure prior to arrival Informant: patient and EMS Onset/Context/Timing Onset: Today Narrative Narrative: Patient presents to the emergency department via EMS. Patient was at a local swimming pool drinking alcohol. He was initially with a friend who left and was going to come back. Bystanders called EMS for possible seizure-like activity. Patient has no history of seizures. Patient just remembers waking up and EMS was there. Patient had been drinking beer and vodka. Patient has history of alcohol abuse. Patient also has had a cough and intermittent abdominal pain and nausea. He has had subjective fevers at home. He has never had Covid and has not had the Covid vaccine. He currently denies abdominal pain. Patient does have a mild headache. Patient states that he has had other episodes of passing out. Prior similar symptoms: Yes PFSH PFS Medical History Alcoholic hepatitis Alcoholism /alcohol abuse Chewing tobacco use Essential (primary) hypertension Nonischemic cardiomyopathy Nonrheumatic mitral (valve) prolapse Pancytopenia Home Medications amlodipine 5 mg PO DAILY #30 tablet 02/20/21 [Rx Last Taken Unknown] lisinopril 20 mg PO DAILY #30 tablet 02/20/21 [Rx Last Taken Unknown] metoprolol tartrate 50 mg PO BID #60 tablet 02/20/21 [Rx Last Taken Unknown] prednisone 20 mg PO DAILY@0800 #7 tablet 02/20/21 [Rx Last Taken Unknown] Allergy/AdvReac Type Severity Reaction Status Date / Time No Known Allergies Allergy Verified 05/06/21 15:53 Family History (Updated 07/12/20 @ 11:17 by Janet Black) Grandfather Myocardial infarction Uncle Myocardial infarction Mother Cancer Father Cancer Surgical History History of left heart catheterization (04/11/19) Social History household members: other details: dad Smoking Status: Current every day smoker tobacco type: smokeless tobacco Tobacco: How many years used: 20 Smokeless tobacco user: chewing tobacco alcohol intake: current alcohol intake frequency: 3 or more drinks per day Alcohol type: beer details: 6 drinks daily, 36 per week. substance use type: marijuana what type of physical activity do you participate in: bicycling frequency: 1-2 times per week do you feel safe at home: Yes ROS ROS ED Constitutional Constitutional ED: Reports systems reviewed and no addt'l complaints, except as documented, fever(s) and headache(s); Denies body ache(s), change in weight or chills Eyes Eyes: Denies acute decrease in peripheral vision, change in vision, double vis ion or loss of vision ENT ENT ED: Reports none; Denies ear pain, lip swelling, loss taste/smell, neck p ain, otalgia or sore throat Cardiovascular Cardiovascular: Reports none; Denies abdominal pain, chest pain with activity, leg edema, lightheadedness, palpitations, rapid heart rate or syncope Respiratory/Chest Respiratory/Chest: Reports none and cough; Denies change in mental status, dry cough, dyspnea, hemoptysis, shortness of breath at rest or shortness of breath with exertion Gastrointestinal Gastrointestinal: Reports none, diarrhea and vomiting; Denies abdominal pain, change in stool character, hematemesis, hematochezia, melena or rectal bleeding Genitourinary Genitourinary ED: Reports none; Denies abdominal discomfort, anuria, dysuria, genital pain or polyuria Musculoskeletal Musculoskeletal: Reports none; Denies arthralgias, back pain, difficulty walking, extremity pain, muscle weakness or myalgias Integumentary Reports none; Denies abscess or rash Neurologic Neurologic: Reports none and seizure-like activity; Denies abnormal gait, confusion, focal weakness, frequent falls, headache(s), loss of vision, numbness, paresthesias, radicular pain, vertigo or weakness Psychiatric Psychiatric: Reports systems reviewed and no addt'l complaints, except as documented and none; Denies behavioral changes, confusion, difficulty concentr ating, hallucinations, suicidal ideation, tactile hallucinations or visual hallucinations Endocrine Endocrinology: Denies none, cold intolerance, excessive sweating, fatigue or heat intolerance Hematologic/Lymphatic Hematologic/Lymphatic: Reports none; Denies anemia, easy bleeding or easy bruising Allergic/Immunologic Allergic/Immunologic ED: Denies as per HPI, none, lip swelling, mouth swelling, throat swelling, tongue swelling or hives EXAM Physical Exam Const Vital Signs: 05/06/21 15:53 05/06/21 18:18 Temperature 98.4 F Temperature Source Oral Pulse Rate 94 Pulse Rate [Lying] 77 Pulse Rate [Sitting] 80 Pulse Rate [Standing] 91 Respiratory Rate 18 Blood Pressure 109/64 Blood Pressure [Lying] 113/73 Blood Pressure [Sitting] 113/79 Blood Pressure [Standing] 111/87 H Blood Pressure Mean 79 Blood Pressure Mean [Lying] 86 Blood Pressure Mean [Sitting] 90 Blood Pressure Mean [Standing] 95 Pulse Ox 93 Oxygen Delivery Method Room Air Positive well nourished and well developed General Appearance ED: well developed and NAD HEENT Reports TM's clear and moist mucous membranes HEENT Narrative: No external evidence of trauma. No bite wounds noted to the lips or mouth or tongue. normocephalic and atraumatic; Negative for trauma or tenderness Tympanic Membrane ED: Yes TM's clear Eyes PERRL and EOMs intact bilaterally General Eye ED: Negative for pale conjunctiva or scleral icterus Neck no lymphadenopathy, supple and no JVD General: Negative for tenderness Chest Wall inspection of chest normal and palpation of chest normal Chest: Negative for tenderness Resp normal respiratory effort and clear to auscultation bilaterally Effort and Inspection: Negative for respiratory distress or pain with movement Auscultation: Negative for rhonchi, wheezes or diminished lung sounds Cardio regular rate, regular rhythm, S1 normal heart sound, S2 normal heart sound and no murmurs Peripheral Pulses: pulses 2+ throughout GI normal to inspection, nondistended, normoactive bowel sounds, soft to palpation, non-tender, non-distended and no masses Back/Spine no CVA tenderness and no thoracic nor lumbar tenderness Extremity normal to inspection General Extremety ED: Negative for edema General Extremity: Negative for edema Neuro oriented x3, CN's II-XII intact bilaterally, no sensory deficits noted and gait normal Sensorium / Orientation: awake, alert, oriented to person, oriented to place and oriented to time Motor Exam: strength 5/5 throughout and strength abnormal Psych mental status grossly normal Skin no rashes or lesions noted and no wounds Skin Narrative: Patient has diffuse erythema of the skin consistent with first- degree sunburn as patient has been in the sun today. MDM MDM MDM Narrative Medical decision making narrative: I suspect patient likely has syncopal episode. Patient was drinking alcohol in the heat and became sunburned. Patient orthostatic vital signs were negative here and he did receive a liter of fluid. Clinically I do not feel he had a seizure. His father is here with him now and will take him home. Patient lives with his father and has an appointment to see addiction medicine physician tomorrow. Patient does not want alcohol detox today. Lab Data Attestation: I reviewed the patient's lab results. Labs: Laboratory Results - last 24 hr 05/06/21 05/06/21 05/06/21 16:36 16:36 16:36 WBC 6.0 RBC 3.39 L Hgb 10.9 L Hct 33.1 L MCV 97.6 H MCH 32.2 H MCHC 32.9 RDW Std Deviation 55.0 H RDW Coeff of Philip 15.3 H Plt Count 113 L MPV 8.8 Immature Gran % (Auto) 0.500 Neut % (Auto) 40.4 L Lymph % (Auto) 47.5 H [place] % (Auto) 6.8 Eos % (Auto) 4.5 Baso % (Auto) 0.3 Absolute Neuts (auto) 2.4 Absolute Lymphs (auto) 2.86 Nucleated RBC % 0 Sodium 144 Potassium 3.6 Chloride 114 H Carbon Dioxide 22.0 Anion Gap 8 BUN 22 H Creatinine 1.43 H Estim Creat Clear Calc 60.98 Est GFR (MDRD) Af Amer 66 Est GFR (MDRD) Non-Af 55 L BUN/Creatinine Ratio 15.4 Glucose 90 Calcium 8.3 L Total Bilirubin 0.20 AST 40 H ALT 53 Alkaline Phosphatase 56 Troponin I High Sens 38.6 Total Protein 7.5 Albumin 3.5 Globulin 4.0 Albumin/Globulin Ratio 0.9 Urine Opiates Screen Urine Methadone Screen Ur Barbiturates Screen Ur Phencyclidine Scrn Ur Amphetamines Screen U Methamphetamin-MDMA U Benzodiazepines Scrn Urine Cocaine Screen U Cannabinoids Screen Ur Drug Screen Comment Ethyl Alcohol 294.0 05/06/21 17:35 WBC RBC Hgb Hct MCV MCH MCHC RDW Std Deviation RDW Coeff of Philip Plt Count MPV Immature Gran % (Auto) Neut % (Auto) Lymph % (Auto) [place] % (Auto) Eos % (Auto) Baso % (Auto) Absolute Neuts (auto) Absolute Lymphs (auto) Nucleated RBC % Sodium Potassium Chloride Carbon Dioxide Anion Gap BUN Creatinine Estim Creat Clear Calc Est GFR (MDRD) Af Amer Est GFR (MDRD) Non-Af BUN/Creatinine Ratio Glucose Calcium Total Bilirubin AST ALT Alkaline Phosphatase Troponin I High Sens Total Protein Albumin Globulin Albumin/Globulin Ratio Urine Opiates Screen NEGATIVE Urine Methadone Screen NEGATIVE Ur Barbiturates Screen NEGATIVE Ur Phencyclidine Scrn NEGATIVE Ur Amphetamines Screen NEGATIVE U Methamphetamin-MDMA NEGATIVE U Benzodiazepines Scrn NEGATIVE Urine Cocaine Screen NEGATIVE U Cannabinoids Screen NEGATIVE Ur Drug Screen Comment Ethyl Alcohol Radiography Diagnostic Testing: Radiology Impression Brain CT 05/06/21 16:10 IMPRESSION: Normal unenhanced CT scan of the brain. Electronically Signed: Chu Gleason MD at 17:18 EDT , Service support , EKG Initial EKG: Attestation: I personally reviewed and interpreted this EKG as follows: Comments: Sinus rhythm with a ventricular rate of 91 bpm with first-degree AV block Discharge Plan Triage Chief Complaint: Seizure ED Provider: Alice Griggs Dx/Rx/DC Orders Clinical Impression: Syncope, Dehydration Instructions: ED Dehydration (Adult), ED Fainting, Uncertain Cause Prescriptions: No Action lisinopril 20 MG tablet 20 mg PO DAILY Qty: 30 RF: 0 prednisone 20 MG tablet 20 mg PO DAILY@0800 Qty: 7 RF: 0 amlodipine 5 MG tablet 5 mg PO DAILY Qty: 30 RF: 0 metoprolol tartrate 50 MG tablet 50 mg PO BID Qty: 60 RF: 0 Primary Care Provider: Care Physician,No Primary Referrals: Lucita Martines MD [STAFF PHYSICIAN] - 3-5 Days Care Physician,No Primary [Primary Care Provider] - Disposition Disposition: Home, Self Care
[2021-05-06 16:45] LABS: Absolute Lymphocyte Count 2.86 X10^3/uL (0.83-4.51); Absolute Neutrophil Count 2.4 X10^3/uL (2.0-7.7); Basophil# 0.02 X10^3/uL; Basophil% 0.3 % (0-1); Eosinophil# 0.27 X10^3/uL; Eosinophils% 4.5 % (0-5); Hematocrit 33.1 % (40-54); Hemoglobin 10.9 g/dL (13.0-16.5); Lymphocyte # 2.86 X10^3/ul (0.83-4.51); Lymphocyte % 47.5 % (19-41); Mean Corp Hgb Conc 32.9 g/dL (32-36); Mean Corpuscular Hgb 32.2 pg (27.0-32.0); Mean Corpuscular Volume 97.6 fL (80-94); Mean Platelet Vol. 8.8 fl (6.2-12.0); Monocyte# 0.41 X10^3/uL; Monocyte% 6.8 % (0-10); NRBC Flagged by Analyzer 0 % (0-5); Neutrophil # 2.43 X10^3/uL (2.7-7.7); Neutrophil % 40.4 % (47-70); Platelet Count 113 K/mm3 (150-450); RBC Distribution Width CV 15.3 % (11.6-14.6); Red Blood Count 3.39 M/mm3 (4.6-6.2)
[2021-05-06 17:04] LABS: ALB/GLOB Ratio 0.9 RATIO (0.9-2.4); AST(SGOT) 40 U/L (15-37); Alanine Aminotransfer ALT/SGPT 53 U/L (16-61); Albumin, Serum 3.5 g/dL (3.2-5.0); Alkaline Phosphatase 56 U/L (45-117); Anion Gap 8 (5-15); BUN 22 mg/dL (7-18); BUN/Creat Ratio 15.4 RATIO (10-20); Calcium,Total 8.3 mg/dL (8.5-10.1); Chloride 114 mmol/L (98-107); Creatinine, Serum 1.43 mg/dL (0.70-1.30); EST Glomerular Filtration Rate 55 mL/min (>60); Est Glom Filt Rate - Afr Amer 66 mL/min (>60); Estimated Creatinine Clearance 60.98 ml/min; Glucose 90 mg/dL (74-106); Potassium 3.6 mmol/L (3.5-5.1); Protein, Total 7.5 g/dL (6.4-8.2); Sodium Level 144 mmol/L (136-145); Troponin-I HS 38.6 pg/mL (3.0-78.5)
[2021-05-06] MEDS: 0.9% Normal Saline 1,000 ML 1000 ML IV (17:38)
[2021-05-06] MEDS: 0.9% Normal Saline 1,000 ML 150 ML IV (17:43)
[2021-05-06 18:18] VITALS: BP 111/87; BP 113/73; BP 113/79; PULSE 77; PULSE 80; PULSE 91
[2021-05-06 18:32] LABS: Amphetamine Urine VISTA NEGATIVE (<1000 ng/mL); Barbiturate Urine VISTA NEGATIVE (< 200 ng/mL); Benzodiazepine Urine VISTA NEGATIVE (< 200 ng/mL); Cocaine Urine VISTA NEGATIVE (< 300 ng/mL); Ecstacy Urine VISTA NEGATIVE (< 500 ng/mL); Methadone Urine VISTA NEGATIVE (< 300 ng/mL); PCP Urine VISTA NEGATIVE (< 25 ng/mL); THC Urine VISTA NEGATIVE (< 50 ng/mL); Vista UDS pH Range 5
[2021-05-06] MEDS: 0.9% Normal Saline 1,000 ML 999 ML IV (18:40)
--- NOTE | 2021-05-06 19:27 | ED.RN ---
Jose POSADA reported to me during shift change that orthostatic vital signs were completed and reported to
== END 2021-05-06 19:30 | disposition home or self-care (01) ==
PROVIDERS: Emergency Provider Emergency Medicine
DX: E86.0 Dehydration (principal); R55 Syncope and collapse; I10 Essential (primary) hypertension; F17.290 Nicotine dependence, other tobacco product, uncomplicated; Z79.899 Other long term (current) drug therapy
CPT/HCPCS: 70450; 80053; 80307; 82077; 84484; 85025; 87426; 93005; 99285; J7030; A4216

== ENCOUNTER → 2023-02-17 | Outpatient (CLI) | payer MEDICAID, SELFPAY ==
[2023-02-17 11:17] LABS: Hematocrit 38.8 % (40-54); Hemoglobin 12.5 g/dL (13.0-16.5); Mean Corp Hgb Conc 32.2 g/dL (32-36); Mean Corpuscular Hgb 32.2 pg (27.0-32.0); Mean Platelet Vol. 9.4 fl (6.2-12.0); Platelet Count 129 K/mm3 (150-450); RBC Distribution Width CV 14.5 % (11.6-14.6); RBC Distribution Width SD 52.7 fl (35.1-43.9); Red Blood Count 3.88 M/mm3 (4.6-6.2)
[2023-02-17 11:37] LABS: Hemoglobin A1c 5.2 % (3.8-5.6)
[2023-02-17 12:04] LABS: ALB/GLOB Ratio 0.9 RATIO (0.9-2.4); AST(SGOT) 32 U/L (15-37); Alanine Aminotransfer ALT/SGPT 31 U/L (16-61); Albumin, Serum 3.9 g/dL (3.2-5.0); Alkaline Phosphatase 60 U/L (45-117); Anion Gap 6 (5-15); BUN 27 mg/dL (7-18); BUN/Creat Ratio 19.1 RATIO (10-20); Chloride 113 mmol/L (98-107); Cholesterol 183 mg/dL (200); Creatinine, Serum 1.41 mg/dL (0.70-1.30); EST Glomerular Filtration Rate 55 mL/min (>60); Est Glom Filt Rate - Afr Amer 67 mL/min (>60); Globulin 4.4 g/dL (2.2-4.2); Glucose 90 mg/dL (74-106); High Density Lipoprotein 74 mg/dL; Protein, Total 8.3 g/dL (6.4-8.2); Sodium Level 141 mmol/L (136-145); Thyroid Stim Hormone (TSH) 0.47 uIU/mL (0.358-3.74); Triglycerides 106 mg/dL; Uric Acid 10.9 mg/dL (3.5-7.2); Very Low Density Lipoprotein 21 mg/dL (5-40)
== END | disposition home or self-care (01) ==
LOC: LAB 10:21
DX: I10 Essential (primary) hypertension (principal); M1A.00X0 Idiopathic chronic gout, unspecified site, without tophus (tophi)
CPT/HCPCS: 36415; 80053; 80061; 83036; 84443; 84550; 85027

== ENCOUNTER 2024-01-31 08:48 | Emergency (ER) | payer MEDICAID, SELFPAY ==
[2024-01-31 08:49] VITALS: BP 113/83; PULSE 91; RESP 16; TEMP 36.9; O2SAT 100; BMI 27.6
--- NOTE | 2024-01-31 09:05 | EX.ED.DYSGE1 ---
HPI History of Present Illness Chief Complaint: Rash Informant: patient Onset/Context/Timing Onset: Month(s) Narrative Narrative: Patient presents with several month history of rash. He states he started with a red itchy patch on his left thigh that has spread down his legs and up onto his back. He was seen by dermatology earlier in December and prescribed desonide cream. He states it did not really help so he stopped using it. He is scheduled to see dermatology again tomorrow. He states he presents today because of pain and itching. [facility] Medical History Alcoholic hepatitis Alcoholism /alcohol abuse Chewing tobacco use Essential (primary) hypertension Nonischemic cardiomyopathy Nonrheumatic mitral (valve) prolapse Pancytopenia Home Medications amlodipine 5 mg tablet 5 mg PO DAILY #30 tabs 02/20/21 [Rx Last Taken Unknown] lisinopril 20 mg tablet 20 mg PO DAILY #30 tabs 02/20/21 [Rx Last Taken Unknown] metoprolol tartrate 50 mg tablet 50 mg PO BID #60 tabs 02/20/21 [Rx Last Taken Unknown] prednisone 20 mg tablet 20 mg PO DAILY@0800 #7 tabs 02/20/21 [Rx Last Taken Unknown] hydrocodone-acetaminophen 5-325mg 5mg-325mg 1 tab PO Q6H PRN PRN Pain 3 days #10 TABLETS 01/31/24 [Rx Last Taken Unknown] hydroxyzine HCl 25 mg tablet 25 mg PO Q8H PRN itching #20 tabs 01/31/24 [Rx Last Taken Unknown] Allergy/AdvReac Type Severity Reaction Status Date / Time No Known Allergies Allergy Verified 01/31/24 08:52 Family History Grandfather Myocardial infarction Uncle Myocardial infarction Mother Cancer Father Cancer Surgical History History of left heart catheterization (04/11/19) Social History household members: other details: dad Smoking Status: Current every day smoker tobacco type: smokeless tobacco Tobacco: How many years used: 20 Smokeless tobacco user: chewing tobacco alcohol intake: current alcohol intake frequency: 3 or more drinks per day Alcohol type: beer details: 6 drinks daily, 36 per week. substance use type: marijuana what type of physical activity do you participate in: bicycling frequency: 1-2 times per week do you feel safe at home: Yes ROS ROS ED Constitutional Constitutional ED: Denies chills or fever(s) Eyes Eyes: Denies discharge from eye(s) ENT ENT ED: Denies discharge from eye(s), rhinorrhea or sore throat Cardiovascular Cardiovascular: Denies chest pain or palpitations Respiratory/Chest Respiratory/Chest: Denies cough or dyspnea Gastrointestinal Gastrointestinal: Denies abdominal pain, nausea or vomiting Musculoskeletal Musculoskeletal: Reports extremity pain; Denies back pain Integumentary Reports rash; Denies Abrasions Neurologic Neurologic: Denies headache(s) or weakness Psychiatric Psychiatric: Denies anxiety or depression Allergic/Immunologic Allergic/Immunologic ED: Denies lip swelling or urticaria EXAM Physical Exam Const Vital Signs: 01/31/24 08:49 01/31/24 08:49 Temperature 98.4 F 98.4 F Temperature Source Temporal Temporal Pulse Rate 91 91 Respiratory Rate 16 16 Blood Pressure 113/83 H 113/83 H Blood Pressure Mean 93 93 Pulse Ox 100 100 Oxygen Delivery Method Room Air Room Air Positive well nourished and well developed General Appearance ED: well developed HEENT Reports moist mucous membranes Eyes EOMs intact bilaterally Chest Wall inspection of chest normal and palpation of chest normal Resp normal respiratory effort and clear to auscultation bilaterally Cardio regular rate and regular rhythm GI non-tender Palpation: soft Psych mental status grossly normal Skin Skin Narrative: Flat erythematous rash noted to the bilateral lower extremities and back. Areas of skin thickening with serosanguineous drainage noted on the lower extremities. No evidence of secondary bacterial infection. MDM MDM MDM Narrative Medical decision making narrative: I discussed with patient that given he has an appointment with dermatology tomorrow I do not want to start him on steroids at this time and potentially mess up a skin biopsy that would ultimately get him the correct diagnosis. I will write him a short course of [place] as well as hydroxyzine to help with pain and itching to try to get him more comfortable. He will follow-up with dermatology tomorrow as scheduled. Discharge Plan Triage Chief Complaint: Rash ED Provider: Marlin Jaimes Dx/Rx/DC Orders Clinical Impression: Rash Instructions: Nonspecific Skin Rash Prescriptions: New hydrocodone-acetaminophen 5-325 mg tablet 1 tab PO Q6H PRN PRN (Reason: Pain) 3 Days Qty: 10 0RF hydroxyzine HCl 25 mg tablet 25 mg PO Q8H PRN (Reason: itching) Qty: 20 0RF No Action lisinopril 20 MG tablet 20 mg PO DAILY Qty: 30 0RF prednisone 20 MG tablet 20 mg PO DAILY@0800 Qty: 7 0RF amlodipine 5 MG tablet 5 mg PO DAILY Qty: 30 0RF metoprolol tartrate 50 MG tablet 50 mg PO BID Qty: 60 0RF Primary Care Provider: [facility] Rosalinda Romero Referrals: [facility] Rosalinda Romero [Primary Care Provider] - 1-2 Weeks Activity Restrictions/Additional Instructions: Follow-up with dermatology tomorrow as scheduled. Disposition Disposition: Home, Self Care
[2024-01-31] MEDS: HYDROcodone Bitartrate/Apap 5/325 Tablet PO (09:17)
[2024-01-31] MEDS: hydrOXYzine PAM 25 MG Capsule PO (09:17)
[2024-01-31 09:43] VITALS: BP 116/71; PULSE 88; RESP 16; TEMP 36.8; O2SAT 99
== END 2024-01-31 09:44 | disposition home or self-care (01) ==
LOC: ED 09:35
PROVIDERS: Emergency Provider Emergency Medicine; Visit Provider Emergency Medicine
DX: R21 Rash and other nonspecific skin eruption (principal); F17.220 Nicotine dependence, chewing tobacco, uncomplicated; I10 Essential (primary) hypertension
CPT/HCPCS: 99283

== ENCOUNTER → 2024-10-06 | Outpatient (CLI) | payer SELFPAY ==
--- NOTE | 2024-10-06 13:50 | ART_ITS ---
Reason For Study: HTN Procedure A bilateral lower extremity continuous wave Doppler with analog waveform analysis and ankle brachial indexes. Left Segmental Pressures Left brachial= 103mmHg. Left posterior tibial artery = 113mmHg. Left dorsalis pedis artery = 105mmHg. The left dorsalis pedis waveforms are triphasic. The left posterior tibial artery waveforms are triphasic. Right Segmental Pressures Right brachial= 93mmHg. Right posterior tibial artery = 117mmHg. Right dorsalis pedis artery = 110mmHg. The right dorsalis pedis waveforms are triphasic. The right posterior tibial artery waveforms are triphasic. Indices The right ankle brachial index by the dorsalis pedis is 1.07. The right ankle brachial index by the posterior tibial artery is 1.14. The left ankle brachial index by the dorsalis pedis is 1.02. The left ankle brachial index by the posterior tibial artery is 1.10. VL/Ankle Brachial Index Interpretation Summary Right JAYY 1.14, normal. Doppler/PVR waveforms of the right ankle normal at rest . Left JAYY 1.1, normal. Doppler/PVR waveforms of the left ankle normal at rest. Ordering Physician: Giovanna Borges Referring Physician: Kimberlee Rivas Performed By: Rachel Guzman RVT
== END | disposition home or self-care (01) ==
PROVIDERS: PCP Family Medicine; Referring Provider Internal Medicine Cardiovascular Disease; Visit Provider Internal Medicine Cardiovascular Disease
DX: D68.62 Lupus anticoagulant syndrome (principal); I42.8 Other cardiomyopathies; I10 Essential (primary) hypertension; F10.10 Alcohol abuse, uncomplicated; I34.0 Nonrheumatic mitral (valve) insufficiency
CPT/HCPCS: 93922

== ENCOUNTER 2024-10-10 07:21 | Day surgery (SDC) | payer SELFPAY ==
[2024-09-22 09:35] LABS: Hematocrit 40.4 % (40-54); Hemoglobin 13.2 g/dL (13.0-16.5); Mean Corp Hgb Conc 32.7 g/dL (32-36); Mean Corpuscular Hgb 31.7 pg (27.0-32.0); Mean Corpuscular Volume 96.9 fL (80-94); Mean Platelet Vol. 9.8 fl (6.2-12.0); Platelet Count 171 K/mm3 (150-450); RBC Distribution Width CV 13.4 % (11.6-14.6); RBC Distribution Width SD 47.5 fl (35.1-43.9); Red Blood Count 4.17 M/mm3 (4.6-6.2); White Blood Count 6.7 K/mm3 (4.4-11.0)
[2024-09-22 09:41] LABS: International Normalized Ratio 0.9; Prothrombin Time (Protime)PT. 11.9 SECONDS (11.7-14.9)
[2024-09-22 10:02] LABS: Anion Gap 8 (5-15); BUN 23 mg/dL (7-18); BUN/Creat Ratio 18.4 RATIO (10-20); Calcium,Total 9.1 mg/dL (8.5-10.1); Chloride 108 mmol/L (98-107); Creatinine, Serum 1.25 mg/dL (0.70-1.30); EST Glomerular Filtration Rate 63 mL/min (>60); Est Glom Filt Rate - Afr Amer 76 mL/min (>60); Glucose 114 mg/dL (74-106); Potassium 4.1 mmol/L (3.5-5.1); Sodium Level 140 mmol/L (136-145)
[2024-09-25 09:32] VITALS: BMI 27.0
[2024-10-10 10:13] LABS: Blood Gas Specimen Type VEN; O2 Delivery Device Not entered; SITE Not entered; VBG BASE EXCESS -3 mmol/L (-1.0-3.5); VBG Bicarbonate 22 mmol/L (22-26); VBG PO2 32 mmHg (25-40); VBG SO2 61 % (50-70); VBG TCO2 23 mmol/L (23-33); VBG pCO2 37.6 mmHg (41-51); VBG pH 7.37 (7.32-7.42)
[2024-10-10 10:21] LABS: Blood Gas Specimen Type VEN; O2 Delivery Device Not entered; SITE Not entered; VBG BASE EXCESS -4 mmol/L (-1.0-3.5); VBG Bicarbonate 21 mmol/L (22-26); VBG PO2 34 mmHg (25-40); VBG SO2 65 % (50-70); VBG TCO2 22 mmol/L (23-33); VBG pH 7.37 (7.32-7.42)
[2024-10-10 10:22] LABS: Blood Gas Specimen Type VEN; O2 Delivery Device Not entered; SITE Not entered; VBG BASE EXCESS -4 mmol/L (-1.0-3.5); VBG Bicarbonate 22 mmol/L (22-26); VBG PO2 37 mmHg (25-40); VBG SO2 68 % (50-70); VBG TCO2 23 mmol/L (23-33); VBG pCO2 37.9 mmHg (41-51); VBG pH 7.36 (7.32-7.42)
[2024-10-10 10:38] LABS: Base Excess -4 mmol/L (-2 to +2); Bicarbonate 21.5 mmol/L (22-26); Blood Gas Specimen Type ART; Mode Not entered; O2 Delivery Device Not entered; PO2 116 mmHG (75-100); SITE Not entered; SO2 99 % (95-99); Total Carbon Dioxide 23 mmol/L; pCO2 36.6 mmHg (35-45); pH 7.38 (7.35-7.45)
--- NOTE | 2024-10-10 10:56 | CL.D_ITS ---
Patient Name: HAI MCFADDEN Study Date: 10/10/2024 Performing: Giovanna Borges MD Ht: 69 inches 175.26 cm : 1965 Wt: 183.01 lbs 83.01 kg Age: 59 Gender: male BSA: 1.99 PROCEDURE(S) PERFORMED DC05-([id number])RHC/LHC/COR/LV CLINICAL PROFILE AND INDICATIONS Indications: Valvular Disease Heart Failure: None CAD Presentations: No Sxs, no angina. CONCLUSIONS 60-70% Mid LAD LVEF 55% Severe MR CO 4.75; CI 2.39 RECOMMENDATIONS Surgery consult DESCRIPTION OF PROCEDURE The patient arrived to the procedure lab. The risks and benefits of the procedure as well as a full description of our services here and current unavailability of surgical backup were fully explained to the patient and/or their significant other prior to the catheterization. The Timeout was completed, verifying the correct patient and procedure. The patient's procedural site was prepped and draped in the usual fashion. Local anesthetic was given subcutaneously to right brachial region with Lidocaine 2%. Local anesthetic was given subcutaneously to right radial region with Lidocaine 2%. Using a modified Seldinger technique, arterial access was obtained via the right radial artery, a 6Fr sheath was inserted. Venous access was obtained via the right brachiocephalic vein, with Micropuncture set A 7Fr thermal dilution catheter was inserted and right heart pressures were recorded, it was then advanced to PA position for cardiac outputs. O2 saturations were then obtained. Thermal dilution cardiac outputs were then recorded. The Thermal dilution catheter was then removed. Right Coronary Artery selective angiography was then performed in multiple views using a 5 Fr. 4.0 Antoine catheter. Left Coronary Artery selective angiography was performed in multiple views using a 5 Fr. JL4 catheter. Left Ventriculography was performed in LOPEZ projection using a 5 Fr. Pigtail catheter. LV to AO pullback pressures were then recorded.The arterial sheath was pulled and a TR Band was applied for hemostasis, 9cc of air. The venous sheath was then pulled and manual compression applied until hemostasis achieved CORONARY ANGIOGRAPHY DOMINANCE: Right Dominant LEFT HEART ASSESSMENT Left Ventricular Ejection Fraction: by LV Gram 55 % LVEDP: 25 mmHg RIGHT HEART ASSESSMENT Paula CO: 4.75 Paula CI: 2.39 PW: 27/33 26 PA: 35/18 26 RV: 34/11 16 RA: 20/17 14 PVR: 0 SVR: 1363 LEFT MAIN: Angiographically normal LEFT ANTERIOR DESCENDING ARTERY: LAD: Calcified 30% Proximal lesion in LAD Tubular 70% Mid lesion in LAD Tubular 50% Mid lesion in LAD CIRCUMFLEX ARTERY: Angiographically normal RIGHT CORONARY ARTERY: RCA: Calcified 20% Proximal lesion in RCA VALVE FINDINGS: Mitral Valve Insufficiency - Grade 4 COMPLICATIONS No Complications PROCEDURE MEDICATIONS Fentanyl 50 mcg IV Versed 1 mg IV Versed 1 mg IV Oxygen: 2 L/min via nasal cannula Heparin given IA 10/10/2024 10:03:26 Verapamil 2.5mg, Ntg 200mcgs, 2000 units of Heparin given IA 10/10/2024 10:03:26 SUMMARY OF HEMODYNAMIC DATA Time AIR REST ECG 08:46:16 PW () PV 10:08:26 PA 35/18 (26) PA 10:08:49 PA 35/14 (25) 10:09:46 RV 34/11, 16 10:10:50 RA 20/17 (14) SV 10:12:20 AO 122/60 (95) SA 10:16:18 LV 120/10, 25 10:25:44 LV 122/13, 33 10:25:53 LVp 118/9, 30 10:37:25 AOp 0/0 (71) 10:37:32 Type SV CO (l/m) CI (l/m/ HR Time AIR REST Paula 54.60 4.75 2.39 87 08:46:16 Label % O2 Pres/Loc Time AIR REST AO 98 PV 10:26:11 PA 61 PA 10:26:29 RV 65 10:26:44 RA 67 SV 10:26:54 Signed By Giovanna Borges MD On 10/10/2024 10:54:57 Giovanna Borges MD
== END 2024-10-10 13:00 | disposition home or self-care (01) ==
PROVIDERS: PCP Family Medicine; Referring Provider Internal Medicine Cardiovascular Disease; Visit Provider Internal Medicine Cardiovascular Disease
DX: I34.1 Nonrheumatic mitral (valve) prolapse (principal); I42.8 Other cardiomyopathies; I34.0 Nonrheumatic mitral (valve) insufficiency; I10 Essential (primary) hypertension; F10.10 Alcohol abuse, uncomplicated; Z87.891 Personal history of nicotine dependence; Z79.899 Other long term (current) drug therapy
CPT/HCPCS: 36415; 80048; 82803; 84443; 85027; 85610; 93460; 99152; 99153; C1894; Q9967; C1751; C1769

== ENCOUNTER → 2025-05-24 | Outpatient (CLI) | payer MEDICARE, SELFPAY ==
[2025-05-24 10:34] LABS: Hematocrit 30.8 % (40-54); Hemoglobin 9.9 g/dL (13.0-16.5); Immature Granulocytes Count 0.030 X10^3/uL (0.0-0.0); Mean Corp Hgb Conc 32.1 g/dL (32-36); Mean Corpuscular Volume 97.2 fL (80-94); Mean Platelet Vol. 8.9 fl (6.2-12.0); NRBC Flagged by Analyzer 0 % (0-5); Platelet Count 329 K/mm3 (150-450); RBC Distribution Width CV 13.9 % (11.6-14.6); RBC Distribution Width SD 49.4 fl (35.1-43.9); Red Blood Count 3.17 M/mm3 (4.6-6.2); White Blood Count 5.0 K/mm3 (4.4-11.0)
== END | disposition home or self-care (01) ==
PROVIDERS: Student in an Organized Health Care Education/Training Program; PCP Internal Medicine; Referring Provider Internal Medicine; Visit Provider Internal Medicine
DX: K92.1 Melena (principal)
CPT/HCPCS: 36415; 85025

== ENCOUNTER → 2025-08-21 | Outpatient (CLI) | payer MEDICARE, SELFPAY ==
[2025-08-21 08:49] LABS: AST(SGOT) 22 U/L (<=37); Alanine Aminotransfer ALT/SGPT 21 U/L (<=46); Albumin, Serum 4.0 g/dL (3.5-5.0); Alkaline Phosphatase 55 U/L (40-129); Anion Gap 12 (5-15); BUN 10 mg/dL (4-19); BUN/Creat Ratio 7.9 RATIO (10-20); Calcium,Total 9.3 mg/dL (7.6-11.0); Carbon Dioxide 23.1 mmol/L (21.0-32.0); Chloride 103 mmol/L (98-108); Cholesterol 197 mg/dL (<=200); Globulin 3.6 g/dL (2.2-4.2); Glucose 103 mg/dL (70-99); Low Density Lipoprotein Calc. 108 mg/dL; Potassium 4.5 mmol/L (3.3-5.1); Triglycerides 105 mg/dL; Very Low Density Lipoprotein 21 mg/dL (5-40); cholesterol:hdl ratio screen 2.81
== END | disposition home or self-care (01) ==
LOC: LAB 07:44
PROVIDERS: Referring Provider Internal Medicine Cardiovascular Disease; Visit Provider Internal Medicine Cardiovascular Disease
DX: I10 Essential (primary) hypertension (principal); I25.10 Atherosclerotic heart disease of native coronary artery without angina pectoris
CPT/HCPCS: 36415; 80053; 80061

== ENCOUNTER → 2025-09-07 | Outpatient (CLI) | payer MEDICARE, SELFPAY ==
--- NOTE | 2025-09-07 12:52 | ECHOD_ITS ---
Reason For Study Reason For Study: ASHD/CAD Procedure This was a 2D Doppler, Color Flow transthoracic echocardiogram. Exam performed in department. Left Ventricle Normal LV size. Mild concentric left ventricular hypertrophy. The left ventricular ejection fraction is 65 %. Stage 1 diastolic dysfunction. Right Ventricle Normal right ventricle. Atria The left atrium is severely enlarged. Normal right atrium. Mitral Valve Marked prolapse of the posterior mitral valve leaflet with moderate to severe anteriorly directed mitral valve regurgitation. Tricuspid Valve Mild (1+) tricuspid valve insufficiency. Right ventricular systolic pressure estimated to be 50 mmHg. Aortic Valve Trisinus/trileaflet aortic valve. Trivial aortic valve insufficiency. Pulmonic Valve Trivial pulmonic valve insufficiency. Great Vessels Normal sized aortic root. Pericardium/Pleural No pericardial effusion. MMode/2D Measurements & Calculations LVIDd: 4.9 cm IVSd: 1.4 cm Ao root diam: 3.7 cm LVIDs: 2.9 cm LVPWd: 1.3 cm RVDd: 3.7 cm FS: 40.2 % LAV(MOD-bp): 98.0 ml LVAd ap4: 38.7 cm2 SV(MOD-sp4): 103.7 ml LAV(MOD-bp) Indexed: 50.8 ml/m2 LVLd ap4: 8.3 cm SI(MOD-sp4): 53.8 ml/m2 LAV(MOD-sp2): 99.2 ml EDV(MOD-sp4): 148.6 ml LAV(MOD-sp4): 97.1 ml EDV(sp4-el): 152.5 ml LVAs ap4: 18.7 cm2 LVLs ap4: 6.6 cm ESV(MOD-sp4): 44.9 ml ESV(sp4-el): 45.1 ml EF(MOD-sp4): 69.8 % EF(sp4-el): 70.4 % SV(sp4-el): 107.4 ml LA A4 area: 28.5 cm2 LA dimension(2D): 5.2 cm RA A4 area: 10.0 cm2 Doppler Measurements & Calculations MV E max kiko: 146.3 cm/sec Lat Peak E' Kiko: 14.9 cm/sec Med Peak E' Kiko: 8.2 cm/sec MV A max kiko: 75.4 cm/sec E/E' lat: 9.8 E/E' med: 17.8 MV E/A: 1.9 MV V2 max: 172.9 cm/sec LV V1 max: 89.7 cm/sec TR max kiko: 334.1 cm/sec MV max P.0 mmHg LV V1 max P.2 mmHg TR max P.6 mmHg MV V2 mean: 108.9 cm/sec LV V1 mean P.0 mmHg MV mean P.6 mmHg LV V1 mean: 67.8 cm/sec MV V2 VTI: 33.6 cm LV V1 VTI: 14.2 cm ECHO/Echo Complete Interpretation Summary Mild concentric left ventricular hypertrophy. The left ventricular ejection fraction is 65 %. Stage 1 diastolic dysfunction. The left atrium is severely enlarged. Marked prolapse of the posterior mitral valve leaflet with moderate to severe a nteriorly directed mitral valve regurgitation. Mild (1+) tricuspid valve insufficiency. Right ventricular systolic pressure estimated to be 50 mmHg. Recommend FAWN/cardiac MRI for further evaluation of mitral valve prolapse and m itral valve regurgitation. Ordering Physician: Giovanna Borges Referring Physician: Giovanna Borges Performed By: Dedra Gómez RCS
== END | disposition home or self-care (01) ==
PROVIDERS: Referring Provider Internal Medicine Cardiovascular Disease; Visit Provider Internal Medicine Cardiovascular Disease
DX: I25.10 Atherosclerotic heart disease of native coronary artery without angina pectoris (principal)
CPT/HCPCS: 93306